=== PATIENT | female | born 1985 | race American Indian/Alaskan Native ===

== ENCOUNTER 2022-04-17 17:41 | Inpatient (IN) | payer MEDICAID, SELFPAY ==
[2022-04-17] VITALS (24 sets, daily range): BP systolic 105–123; BP diastolic 53–75; PULSE 75–105; RESP 20–24; TEMP 36.1–37.5; O2SAT 86–96; BMI 36.1
--- NOTE | 2022-04-17 17:54 | DI.RAD.S_ITS ---
PROCEDURE: XR CHEST 1V INDICATIONS: cough TECHNIQUE: One view of the chest was acquired. COMPARISON: None. FINDINGS: Surgical changes and devices: None. Lungs and pleura: Bilateral, but left greater than right perihilar alveolar opacity and interstitial prominence. There are no dense consolidations, effusions, or pneumothorax. Mediastinum: Left hilar structures are prominent, potentially adenopathy. The mediastinal contour and heart size are otherwise normal. Bones and chest wall: No suspicious bony lesions. Overlying soft tissues appear unremarkable. IMPRESSION: 1. Mainly left-sided mixed interstitial and alveolar opacity and probably reactive adenopathy. Dictated by: Nancy Kumar M.D. on 04/17/2022 at 20:41 Approved by: Nancy Kumar M.D. on 04/17/2022 at 20:42
--- NOTE | 2022-04-17 18:08 | ED_ITS ---
HPI - SOB/Dyspnea General Chief Complaint: Shortness of Breath/Dyspnea Stated Complaint: SOB Time Seen by Provider: 04/17/22 18:03 Source: patient and EMS Mode of arrival: EMS Limitations: no limitations History of Present Illness HPI Narrative: 36F smoker with history of asthma presents by EMS for evaluation of various symptoms including fever, body aches, chills and shortness of breath evolving over the past few days. She states that she has multiple family members in the home with influenza a. She ran out of her inhaler and has become increasingly short of breath. She presented to clinic initially was found to have oxygen in the upper 80s, EMS was activated and transported here with IV in place. She has a mild headache and mild sore throat but complains of fever, chills and body aches. She is nauseated but has had no vomiting and denies abdominal pain. She denies chest pain but has been short of breath and increasingly wheezy. She states taking a deep breath makes her more likely to cough. She denies the production of any sputum. She denies any diarrhea or urinary complaints such as dysuria, frequency or urgency Related Data Home Medications Medication Instructions Recorded Confirmed acetaminophen 650 mg tablet 650 mg PO Q4H PRN Mild Pain (Scale 04/17/22 04/17/22 Score 1-4) methadone 5 mg tablet 148 mg PO DAILY 04/17/22 04/17/22 Allergies Allergy/AdvReac Type Severity Reaction Status Date / Time No Known Drug Allergies Allergy Verified 04/17/22 17:42 Review of Systems Review of Systems Narrative: GENERAL: See HPI HEENT: See HPI RESPIRATORY: See HPI CARDIOVASCULAR: Denies chest pain, palpitations, orthopnea, edema, GASTROINTESTINAL: See HPI : Denies dysuria, frequency, incontinence, hematuria, urinary retention. MUSCULOSKELETAL: denies weakness, joint pain, or bony pain SKIN: Denies rash, skin lesions, or other NEUROLOGIC: Denies weakness, headache, numbness, change in speech, confusion, seizures, incoordination. PSYCHIATRIC: No concerning psychosocial issues. 12 point review of systems is negative except for those stated above Patient History Medical History (Updated 04/17/22 @ 21:41 by Luca Elliott MD) Asthma Social History household members: spouse, family and children Smoking Status: Current every day smoker alcohol intake: never Smoking Status: Current every day smoker Substance Use Type: does not use Exam Narrative Exam Narrative: GENERAL: [36] year old patient appears stated age. Well-developed patient, in mild distress. Clearly feeling unwell but in no significant distress HEAD: Atraumatic. Normocephalic. EYES: Pupils equal round and reactive. Extraocular motions intact. No scleral icterus. No injection or drainage. ENT: Nose without bleeding, purulent drainage. Throat without erythema, tonsillar hypertrophy or exudate. Airway patent. NECK: Trachea midline. Non tender CARDIOVASCULAR: Regular rate and rhythm without murmurs, gallops, or rubs. RESPIRATORY: Clear to auscultation. Breath sounds equal bilaterally. No wheezes, rales, or rhonchi. No signs of increased work of breathing such as tachypnea, use of accessory muscles. She is hypoxemic and currently requiring 3 L by nasal cannula GASTROINTESTINAL: Abdomen soft, non-tender, nondistended. EXTREMITIES: No edema or joint tenderness. BACK: Nontender without deformity or crepitance. No flank tenderness. NEURO: AOx3. SKIN: No rash or erythema of visible areas Initial Vital Signs Initial Vital Signs: Vital Signs Pulse Rate 104 H 04/17/22 17:46 Pulse Oximetry 95 04/17/22 17:46 Course Orders Ordered: ED Orders 04/17/22 17:44 Complete Blood Count AUTO DIFF Stat Comprehensive Metabolic Panel Stat D Dimer Stat Lactate (Lactic Acid) Stat Procalcitonin Stat 04/17/22 17:45 Covid-19 + FLU A/B + RSV - PCR Stat 04/17/22 17:54 XR chest 1V Stat 04/17/22 18:35 Blood Culture Stat 04/17/22 19:07 ABG [Arterial Blood Gas] Stat Acetaminophen (Acetaminophen 325 Mg Tablet) 650 mg PO Q6H PRN PRN Reason: Fever/Mild Pain (1-3) Albuterol (Albuterol 2.5 Mg/3 Ml Neb (Adult)) 2.5 mg INH [id number] [facility] Docusate Sodium (Docusate 100 Mg Capsule) 100 mg PO BID DOMINIQUE Methadone HCl (Methadone 5 Mg Tablet) 148 mg PO DAILY [facility] Methylprednisolone (Methylprednisolone 125 Mg/2 Ml Vial) 60 mg IV Q8H DOMINIQUE Naloxone HCl (Naloxone 0.4 Mg/Ml Vial) 0.2 mg IV Q2MIN PRN PRN Reason: Opiate Reversal Ondansetron HCl (Ondansetron 4 Mg/2 Ml Inj) 4 mg IV Q8HR PRN PRN Reason: Nausea And Vomiting Oseltamivir Phosphate (Oseltamivir 75 Mg Capsule) 75 mg PO BID DOMINIQUE Discontinued Medications Albuterol/Ipratropium (Albuterol/Ipratropium 3 Ml Ampul) 3 ml INH NOW ONE Stop: 04/17/22 18:18 Last Admin: 04/17/22 19:04 Dose: 3 ml Documented By: FRANCK Lactated Ringer's (Lactated Ringers) 1,000 mls @ 1,000 mls/hr IV BOLUS ONE Stop: 04/17/22 19:15 Last Infusion: 04/17/22 20:18 Dose: 0 mls/hr Documented By: Admin: 04/17/22 18:52 Dose: 1,000 mls/hr Documented By: RB Ceftriaxone Sodium 1,000 mg/ (Sodium Chloride) 100 mls @ 200 mls/hr IV NOW ONE Stop: 04/17/22 20:13 Last Infusion: 04/17/22 21:07 Dose: 0 mls/hr Documented By: Admin: 04/17/22 20:19 Dose: 200 mls/hr Documented By: MARLEEN Azithromycin 500 mg/ Dextrose 250 mls @ 250 mls/hr IV NOW ONE Stop: 04/17/22 20:13 Last Infusion: 04/17/22 22:23 Dose: 0 mls/hr Documented By: Admin: 04/17/22 21:08 Dose: 250 mls/hr Documented By: MARLEEN Ketorolac Tromethamine (Ketorolac 30 Mg/Ml Vial) 15 mg IV NOW ONE Stop: 04/17/22 18:17 Last Admin: 04/17/22 18:51 Dose: 15 mg Documented By: RB Methylprednisolone (Methylprednisolone 125 Mg/2 Ml Vial) 125 mg IV NOW ONE Stop: 04/17/22 18:17 Last Admin: 04/17/22 18:52 Dose: 125 mg Documented By: RB Ondansetron HCl (Ondansetron 4 Mg/2 Ml Inj) 4 mg IV NOW ONE Stop: 04/17/22 18:17 Last Admin: 04/17/22 18:51 Dose: 4 mg Documented By: RB Oseltamivir Phosphate (Oseltamivir 75 Mg Capsule) 75 mg PO NOW ONE Stop: 04/17/22 21:30 Last Admin: 04/17/22 21:44 Dose: Not Given Documented By: RB Oxycodone HCl (Oxycodone Ir 5 Mg Tablet) 5 mg PO Q3H PRN PRN Reason: Pain, Moderate (4-6) Pantoprazole Sodium (Pantoprazole 40 Mg Vial) 40 mg IV NOW ONE Stop: 04/17/22 18:17 Last Admin: 04/17/22 18:52 Dose: 40 mg Documented By: RB Vital Signs Vital signs: Vital Signs - 8 hr 04/17/22 17:50 04/17/22 17:46 04/17/22 17:47 Temperature 99.5 F Pulse Rate 95 H 104 H Respiratory Rate 20 Blood Pressure 120/60 118/75 Pulse Oximetry 95 95 Oxygen Delivery Method Room Air Oxygen Flow Rate 04/17/22 17:47 04/17/22 18:17 04/17/22 18:19 Temperature Pulse Rate 95 H Respiratory Rate Blood Pressure Pulse Oximetry 96 86 L 92 Oxygen Delivery Method Room Air Nasal Cannula Oxygen Flow Rate 3 04/17/22 19:05 04/17/22 18:00 04/17/22 18:01 Temperature Pulse Rate 101 H Respiratory Rate Blood Pressure 117/60 Pulse Oximetry 93 Oxygen Delivery Method Nasal Cannula Nasal Cannula Oxygen Flow Rate 4 3 04/17/22 18:01 04/17/22 18:30 04/17/22 19:00 Temperature Pulse Rate 102 H 94 H 96 H Respiratory Rate Blood Pressure Pulse Oximetry 92 92 Oxygen Delivery Method Nasal Cannula Nasal Cannula Oxygen Flow Rate 3 3 04/17/22 19:15 04/17/22 19:15 04/17/22 19:30 Temperature Pulse Rate 105 H Respiratory Rate Blood Pressure 120/60 120/59 L Pulse Oximetry 91 Oxygen Delivery Method Nasal Cannula Oxygen Flow Rate 3 04/17/22 19:30 04/17/22 19:53 04/17/22 20:00 Temperature Pulse Rate 99 H 93 H 97 H Respiratory Rate Blood Pressure 119/56 L 108/53 L Pulse Oximetry 92 91 93 Oxygen Delivery Method Nasal Cannula Nasal Cannula Nasal Cannula Oxygen Flow Rate 3 3 3 04/17/22 20:15 04/17/22 20:30 04/17/22 20:30 Temperature Pulse Rate 87 81 Respiratory Rate Blood Pressure 116/55 L 123/58 L Pulse Oximetry 91 92 Oxygen Delivery Method Nasal Cannula Oxygen Flow Rate 3 04/17/22 20:45 04/17/22 20:45 04/17/22 21:00 Temperature Pulse Rate 84 Respiratory Rate Blood Pressure 118/58 L 115/58 L Pulse Oximetry 91 Oxygen Delivery Method Oxygen Flow Rate 04/17/22 21:00 04/17/22 21:15 04/17/22 21:15 Temperature Pulse Rate 81 75 Respiratory Rate Blood Pressure 120/59 L Pulse Oximetry 91 93 Oxygen Delivery Method Oxygen Flow Rate MDM - SOB/Dyspnea Lab Data Result diagrams: 04/17/22 17:44 04/17/22 17:44 Labs: Lab Results 04/17/22 04/17/22 04/17/22 Range/Units 17:44 17:44 17:44 WBC 11.0 (4.5-11.0) X10^3/uL RBC 4.34 (4.0-5.2) X10^6/uL Hgb 11.0 L (12.0-16.0) g/dL Hct 33.3 L (36-46) % MCV 76.6 L (80-100) fL MCH 25.2 L (26-34) PG MCHC 33.0 (30-36) % RDW 16.9 H (11.6-14.8) % Plt Count 281 (150-400) X10^3/uL Neut % (Auto) 88.0 H (50-75) % Lymph % (Auto) 5.2 L (25-40) % [place] % (Auto) 6.2 (3-14) % Eos % (Auto) 0.0 L (2-4) % Baso % (Auto) 0.6 (0-2) % Neut # (Auto) 9700 H (6496-4787) /uL Lymph # (Auto) 600 L (0228-0445) /uL [place] # (Auto) 700 (0-900) /uL Eos # (Auto) 0 (0-450) /uL Baso # (Auto) 100 (0-100) /uL D-Dimer (<500) ng/ml Sodium 137 (137-145) mmol/L Potassium 3.6 (3.4-5.1) mmol/L Chloride 102 (98-107) mmol/L Carbon Dioxide 27 (22-32) mmol/L BUN 9 (7-17) mg/dL Creatinine 0.60 (0.52-1.04) mg/dL Estimated GFR > 60 (>60) mL/min BUN/Creatinine Ratio 15.0 (6-22) Glucose 106 H (70-100) mg/dL Lactate 1.1 (0.7-2.1) mmol/L Calcium 8.8 (8.4-10.2) mg/dL Total Bilirubin 0.3 (0.2-1.3) mg/dL AST 26 (14-36) IU/L ALT 23 (<35) IU/L Alkaline Phosphatase 81 (38-126) U/L Total Protein 8.0 (6.3-8.2) g/dL Albumin 4.1 (3.5-5.0) g/dL Globulin 3.9 (1.7-4.1) g/dL Albumin/Globulin Ratio 1.1 (1.0-2.8) Procalcitonin 0.08 (<0.5) ng/mL SARS-CoV-2 (PCR) (Negative) Influenza A (RT-PCR) (NEGATIVE) Influenza B (RT-PCR) (NEGATIVE) RSV (PCR) (Negative) 04/17/22 04/17/22 Range/Units 17:44 17:45 WBC (4.5-11.0) X10^3/uL RBC (4.0-5.2) X10^6/uL Hgb (12.0-16.0) g/dL Hct (36-46) % MCV (80-100) fL MCH (26-34) PG MCHC (30-36) % RDW (11.6-14.8) % Plt Count (150-400) X10^3/uL Neut % (Auto) (50-75) % Lymph % (Auto) (25-40) % [place] % (Auto) (3-14) % Eos % (Auto) (2-4) % Baso % (Auto) (0-2) % Neut # (Auto) (2517-9732) /uL Lymph # (Auto) (3052-8086) /uL [place] # (Auto) (0-900) /uL Eos # (Auto) (0-450) /uL Baso # (Auto) (0-100) /uL D-Dimer 441 (<500) ng/ml Sodium (137-145) mmol/L Potassium (3.4-5.1) mmol/L Chloride (98-107) mmol/L Carbon Dioxide (22-32) mmol/L BUN (7-17) mg/dL Creatinine (0.52-1.04) mg/dL Estimated GFR (>60) mL/min BUN/Creatinine Ratio (6-22) Glucose (70-100) mg/dL Lactate (0.7-2.1) mmol/L Calcium (8.4-10.2) mg/dL Total Bilirubin (0.2-1.3) mg/dL AST (14-36) IU/L ALT (<35) IU/L Alkaline Phosphatase (38-126) U/L Total Protein (6.3-8.2) g/dL Albumin (3.5-5.0) g/dL Globulin (1.7-4.1) g/dL Albumin/Globulin Ratio (1.0-2.8) Procalcitonin (<0.5) ng/mL SARS-CoV-2 (PCR) Negative (Negative) Influenza A (RT-PCR) Flu a positive H (NEGATIVE) Influenza B (RT-PCR) Flu b negative (NEGATIVE) RSV (PCR) Negative (Negative) Imaging Data Chest x-ray: Radiologist's Impression: [address] [id number] ReportSigned Patient: Adbi Negron [facility]#: [id number]: 01/24/1987Acct:[id number]/Sex: 35 / MDate of Service: 04/17/22Loc: EDAccession Number: [id number] Procedure: XR foot LT min 3V Ordering Provider: Oliver Nina D.O. PROCEDURE: XR FOOT LT MIN 3V INDICATIONS: foot injury/pain TECHNIQUE: Three views of the foot were acquired. COMPARISON: None. FINDINGS: Bones: No fractures or dislocations. No suspicious bony lesions. Soft tissues: No tibiotalar joint effusion. Achilles tendon appears normal. IMPRESSION: Intact left foot. Dictated by: Nancy Kumar M.D. on 04/17/2022 at 19:17 Approved by: Nancy Kumar M.D. on 04/17/2022 at 19:17 [facility] Narrative Medical decision making narrative: 36-year-old female with history of asthma and exposure to flu a presents with increasing work of breathing fever and body aches. Over the course of the visit she is had increased oxygen demands and now is requiring 4 L by nasal cannula and while on 4 L had an ABG noting a PO2 of 60. Labs are largely very reassuring, pulmonary embolism considered in the differential but considered less likely as D-dimer is below cutoff to pursue pulmonary embolism. Patient requiring supplemental oxygen, has been given fluids, breathing treatments with minimal improvement, she will require hospitalization for ongoing evaluation and stabilization of her condition. Discharge Plan Departure Patient Disposition: Admitted As Inpatient Clinical Impression: Acute hypoxemic respiratory failure, Influenza A Admit Date/Time: 04/17/22 21:24 Admit Provider: Luca Elliott
--- NOTE | 2022-04-17 18:17 | PC.NURSE ---
pt breathing tx finished, pt removed mask. on ra sats dropped to 86%. placed on 3l O2, sats now 92%
[2022-04-17 18:29] LABS: Add Manual Diff / Slide Review NO; Basophils Absolute Auto 100 /uL (0-100); Basophils Percent Auto 0.6 % (0-2); Eosinophils Absolute Auto 0 /uL (0-450); Hematocrit 33.3 % (36-46); Lymphocytes Absolute Auto 600 /uL (1100-4500); Lymphocytes Percent Auto 5.2 % (25-40); Mean Corpuscular Hemoglobin 25.2 PG (26-34); Mean Corpuscular Volume 76.6 fL (80-100); Monocytes Absolute Auto 700 /uL (0-900); Monocytes Percent Auto 6.2 % (3-14); Neutrophils Absolute Auto 9700 /uL (1500-7000); Platelet Count 281 X10^3/uL (150-400); Red Blood Cell Count 4.34 X10^6/uL (4.0-5.2); Red Cell Distribution Width 16.9 % (11.6-14.8)
[2022-04-17 18:33] LABS: Lactate (Lactic Acid) 1.1 mmol/L (0.7-2.1)
[2022-04-17 18:34] LABS: Alanine Aminotransferase 23 IU/L (<35); Albumin 4.1 g/dL (3.5-5.0); Albumin Globulin Ratio 1.1 (1.0-2.8); Alkaline Phosphatase 81 U/L (38-126); Aspartate Aminotransferase 26 IU/L (14-36); Bilirubin Total 0.3 mg/dL (0.2-1.3); Blood Urea Nitrogen 9 mg/dL (7-17); Calcium 8.8 mg/dL (8.4-10.2); Carbon Dioxide 27 mmol/L (22-32); Chloride 102 mmol/L (98-107); Estimated Glomerular Filt Rate > 60 mL/min (>60); Globulin 3.9 g/dL (1.7-4.1); Glucose 106 mg/dL (70-100); HEMOLYSIS < 15 (0-50); Potassium 3.6 mmol/L (3.4-5.1); Sodium 137 mmol/L (137-145)
[2022-04-17 18:51] LABS: Influenza A - CEPHEID Flu A POSITIVE (NEGATIVE); Influenza B - CEPHEID Flu B NEGATIVE (NEGATIVE); Respiratory Syncytial Virus Negative (Negative)
[2022-04-17 18:51] LABS: Procalcitonin 0.08 ng/mL (<0.5)
[2022-04-17] MEDS: ONDANSETRON 4 MG/2 ML INJ IV (18:51)
[2022-04-17] MEDS: KETOROLAC 30 MG/ML VIAL 15 MG IV (18:51)
[2022-04-17 18:52] LABS: COVID-19 CEPHEID 4-PLEX PCR Negative (Negative)
[2022-04-17] MEDS: PANTOPRAZOLE 40 MG VIAL IV (18:52)
[2022-04-17] MEDS: methylPREDNISolone 125 MG/2 ML VIAL IV (18:52)
[2022-04-17] MEDS: LACTATED RINGERS 1,000 ML 1000 ML IV (18:52)
[2022-04-17] MEDS: ALBUTEROL/IPRATROPIUM 3 ML AMPUL INH (19:04)
[2022-04-17 19:25] LABS: D Dimer 441 ng/ml (<500)
[2022-04-17] MEDS: cefTRIAXone 1,000 MG in SODIUM CHLORIDE 0.9% 100 ML 200 MG IV (20:19)
[2022-04-17] MEDS: AZITHROMYCIN 500 MG in DEXTROSE 5% IN WATER 250 ML 250 MG IV (21:08)
--- NOTE | 2022-04-17 21:38 | P.HP_ITS ---
History of Present Illness History of Present Illness Date Patient Seen: 04/17/22 Chief complaint: SOB Narrative: 36F smoker with history of asthma presents by EMS for evaluation of various symptoms including fever, body aches, chills and shortness of breath evolving over the past few days.? She states that she has multiple family members in the home with influenza a.? She ran out of her inhaler and has become increasingly short of breath.? She presented to clinic initially was found to have oxygen in the upper 80s, EMS was activated and transported here with IV in place.? She has a mild headache and mild sore throat but complains of fever, chills and body aches.? She is nauseated but has had no vomiting and denies abdominal pain.? She denies chest pain but has been short of breath and increasingly wheezy.? She states taking a deep breath makes her more likely to cough.? She denies the production of any sputum.? She denies any diarrhea or urinary complaints such as dysuria, frequency or urgency. In the ER patient found to be significantly hypoxic dropping to 80s low 80s of the oxygen required 4 L to keep above 90%. She received IV steroids and nebulizer therapy before I saw her, still seems to be sleepy and using accessory muscles, looks very tired. Patient has inte rmittent episodes cough and yellowish sputum. She already received IV antibiotics in the ER. Requested respiratory therapy to put her on high-flow nasal cannula to help with the breathing and oxygenation given significant hypoxia on ABG. Patient able to confirm most of the details by herself and present at bedside. Patient History Medical History (Updated 04/17/22 @ 21:41 by Luca Elliott MD) Asthma Comment: She had a head trauma when she was a kid, heart surgery, does not remember the details. Family & Social History Family history unavailable: No (No significant history of asthma or cardiac disease, noncontributory) Social History: Lives with her . Supportive family. She works in a assisted living facility. Safety & Behavioral: Feels Safe in Current Yes Environment Been Physically Hurt or No Threatened By a Person Tobacco & Substance use: Smoking Status Current every day smoker Substance Use Type does not use Meds Home Medications and Allergies Allergies Allergy/AdvReac Type Severity Reaction Status Date / Time No Known Drug Allergies Allergy Verified 04/17/22 17:42 Review of Systems Review of Systems Narrative: All other systems reviewed, negative. Other than as mentioned above in HPI. Exam Vital Signs (past 8 hours): - 04/17/22 17:50 04/17/22 17:46 04/17/22 17:47 Temperature 99.5 F Pulse Rate 95 H 104 H Respiratory Rate 20 Blood Pressure 120/60 118/75 Pulse Oximetry 95 95 Oxygen Delivery Method Room Air Oxygen Flow Rate 04/17/22 17:47 04/17/22 18:17 04/17/22 18:19 Temperature Pulse Rate 95 H Respiratory Rate Blood Pressure Pulse Oximetry 96 86 L 92 Oxygen Delivery Method Room Air Nasal Cannula Oxygen Flow Rate 3 04/17/22 19:05 04/17/22 18:00 04/17/22 18:01 Temperature Pulse Rate 101 H Respiratory Rate Blood Pressure 117/60 Pulse Oximetry 93 Oxygen Delivery Method Nasal Cannula Nasal Cannula Oxygen Flow Rate 4 3 04/17/22 18:01 04/17/22 18:30 04/17/22 19:00 Temperature Pulse Rate 102 H 94 H 96 H Respiratory Rate Blood Pressure Pulse Oximetry 92 92 Oxygen Delivery Method Nasal Cannula Nasal Cannula Oxygen Flow Rate 3 3 04/17/22 19:15 04/17/22 19:15 04/17/22 19:30 Temperature Pulse Rate 105 H Respiratory Rate Blood Pressure 120/60 120/59 L Pulse Oximetry 91 Oxygen Delivery Method Nasal Cannula Oxygen Flow Rate 3 04/17/22 19:30 04/17/22 19:53 04/17/22 20:00 Temperature Pulse Rate 99 H 93 H 97 H Respiratory Rate Blood Pressure 119/56 L 108/53 L Pulse Oximetry 92 91 93 Oxygen Delivery Method Nasal Cannula Nasal Cannula Nasal Cannula Oxygen Flow Rate 3 3 3 04/17/22 20:15 Temperature Pulse Rate 87 Respiratory Rate Blood Pressure 116/55 L Pulse Oximetry 91 Oxygen Delivery Method Nasal Cannula Oxygen Flow Rate 3 Oxygen Delivery Method Nasal Cannula Oxygen Flow Rate 3 Narrative Exam Narrative: Seems to be in distress, using accessory muscles when making conversation, significant wheezes bilateral left greater than right and also crackles on the left upper lung. Obese. Nonpitting pedal edema of extremities. Constitutional, HEENT, eyes, neck, chest, respiratory, cardiovascular, GI, skin, neuro, extremity, psych exam done, within normal limits except as mentioned above. Objective Labs Result Diagrams: 04/17/22 17:44 04/17/22 17:44 Labs: Laboratory Results - last 24 hr 04/17/22 04/17/22 04/17/22 17:44 17:44 17:44 WBC 11.0 RBC 4.34 Hgb 11.0 L Hct 33.3 L MCV 76.6 L MCH 25.2 L MCHC 33.0 RDW 16.9 H Plt Count 281 Neut % (Auto) 88.0 H Lymph % (Auto) 5.2 L [place] % (Auto) 6.2 Eos % (Auto) 0.0 L Baso % (Auto) 0.6 Neut # (Auto) 9700 H Lymph # (Auto) 600 L [place] # (Auto) 700 Eos # (Auto) 0 Baso # (Auto) 100 D-Dimer Sodium 137 Potassium 3.6 Chloride 102 Carbon Dioxide 27 BUN 9 Creatinine 0.60 Estimated GFR > 60 BUN/Creatinine Ratio 15.0 Glucose 106 H Lactate 1.1 Calcium 8.8 Total Bilirubin 0.3 AST 26 ALT 23 Alkaline Phosphatase 81 Total Protein 8.0 Albumin 4.1 Globulin 3.9 Albumin/Globulin Ratio 1.1 Procalcitonin 0.08 SARS-CoV-2 (PCR) Influenza A (RT-PCR) Influenza B (RT-PCR) RSV (PCR) 04/17/22 04/17/22 17:44 17:45 WBC RBC Hgb Hct MCV MCH MCHC RDW Plt Count Neut % (Auto) Lymph % (Auto) [place] % (Auto) Eos % (Auto) Baso % (Auto) Neut # (Auto) Lymph # (Auto) [place] # (Auto) Eos # (Auto) Baso # (Auto) D-Dimer 441 Sodium Potassium Chloride Carbon Dioxide BUN Creatinine Estimated GFR BUN/Creatinine Ratio Glucose Lactate Calcium Total Bilirubin AST ALT Alkaline Phosphatase Total Protein Albumin Globulin Albumin/Globulin Ratio Procalcitonin SARS-CoV-2 (PCR) Negative Influenza A (RT-PCR) Flu a positive H Influenza B (RT-PCR) Flu b negative RSV (PCR) Negative Assessment & Plan Assessment & Plan narrative: Acute hypoxic respiratory failure secondary to severe asthma exacerbation secondary to influenza a infection -chest x-ray negative for consolidation, pneumonia at this time, could be viral bronchitis. Tamiflu, IV steroids, continuous nebulizer therapy, high-flow nasal cannula, close monitoring Obesity -secondary to excess calories -outpatient follow-up DVT and GI prophylaxis reviewed. Patient is full code Care plan extensively discussed with the patient and also at bedside, answered all questions. Expected length of stay 2 days, given significant respiratory distress. Reassess in the morning for discharge planning. Time Spent With Patient Critical Care time: I spent a total of [] minutes of critical care time on this patient's care today; this time is exclusive of procedural time.
[2022-04-18] VITALS (13 sets, daily range): BP systolic 113–126; BP diastolic 59–68; PULSE 62–98; RESP 16–18; TEMP 35.8–36.4; O2SAT 89–96
[2022-04-18] MEDS: ONDANSETRON 4 MG/2 ML INJ IV ×3 (01:18→18:41)
[2022-04-18] MEDS: ACETAMINOPHEN 325 MG TABLET 650 MG PO ×3 (01:18→18:40)
--- NOTE | 2022-04-18 02:29 | PC.ADMIT ---
[id number] [facility] lashawn ln Admission Note: The patient,Donnie Ojeda,36 y/o, was given written information regarding hospital policies, unit procedures and contact persons. Patient's smoking status: Current every day smoker. Vital Signs - 8 hr 04/17/22 19:05 04/17/22 18:30 04/17/22 19:00 Temperature Pulse Rate 94 H 96 H Respiratory Rate Blood Pressure Pulse Oximetry 92 Oxygen Delivery Method Nasal Cannula Nasal Cannula Oxygen Flow Rate 4 3 Fraction of Inspired Oxygen 04/17/22 19:15 04/17/22 19:15 04/17/22 19:30 Temperature Pulse Rate 105 H Respiratory Rate Blood Pressure 120/60 120/59 L Pulse Oximetry 91 Oxygen Delivery Method Nasal Cannula Oxygen Flow Rate 3 Fraction of Inspired Oxygen 04/17/22 19:30 04/17/22 19:53 04/17/22 20:00 Temperature Pulse Rate 99 H 93 H 97 H Respiratory Rate Blood Pressure 119/56 L 108/53 L Pulse Oximetry 92 91 93 Oxygen Delivery Method Nasal Cannula Nasal Cannula Nasal Cannula Oxygen Flow Rate 3 3 3 Fraction of Inspired Oxygen 04/17/22 20:15 04/17/22 20:30 04/17/22 20:30 Temperature Pulse Rate 87 81 Respiratory Rate Blood Pressure 116/55 L 123/58 L Pulse Oximetry 91 92 Oxygen Delivery Method Nasal Cannula Oxygen Flow Rate 3 Fraction of Inspired Oxygen 04/17/22 20:45 04/17/22 20:45 04/17/22 21:00 Temperature Pulse Rate 84 Respiratory Rate Blood Pressure 118/58 L 115/58 L Pulse Oximetry 91 Oxygen Delivery Method Oxygen Flow Rate Fraction of Inspired Oxygen 04/17/22 21:00 04/17/22 21:15 04/17/22 21:15 Temperature Pulse Rate 81 75 Respiratory Rate Blood Pressure 120/59 L Pulse Oximetry 91 93 Oxygen Delivery Method Oxygen Flow Rate Fraction of Inspired Oxygen 04/17/22 21:30 04/17/22 21:30 04/17/22 21:45 Temperature Pulse Rate 80 Respiratory Rate Blood Pressure 119/56 L 108/56 L Pulse Oximetry 94 Oxygen Delivery Method Oxygen Flow Rate Fraction of Inspired Oxygen 04/17/22 21:45 04/17/22 22:00 04/17/22 22:00 Temperature Pulse Rate 78 78 Respiratory Rate Blood Pressure 113/58 L Pulse Oximetry 95 95 Oxygen Delivery Method Oxygen Flow Rate Fraction of Inspired Oxygen 04/17/22 22:15 04/17/22 22:15 04/17/22 22:30 Temperature Pulse Rate 81 75 Respiratory Rate Blood Pressure 113/64 Pulse Oximetry 96 95 Oxygen Delivery Method Oxygen Flow Rate Fraction of Inspired Oxygen 04/17/22 23:10 04/18/22 01:00 Temperature 97.0 F L Pulse Rate 79 Respiratory Rate 24 Blood Pressure 105/61 Pulse Oximetry 95 Oxygen Delivery Method High Flow Nasal Cannula Oxygen Flow Rate 40 Fraction of Inspired Oxygen 0.38 Patient admitted to room 216 from ER at 2245. Patient is alert and oriented but appears fatigued and weak. Breath sounds with crackles in [place] and bilateral wheezes. Intermittent cough productive of yellow sputum. On oxygen per HFNC at 40/38 % Fi02 with sat of 95%; on continuous oximetry. HRR and telemetry reading was SR. At time of assessment complained of some nausea without emesis so medicated with Zofran. Also complained of headache so medicated with Tylenol. BT present but hypoactive. Denies dysuria, frequency or urgency with voiding. Able to move herself in bed. Up to BSC with SBA. Bilateral calf SCD's applied. Fall risk score is moderate but patient calls for assistance appropriately so alarm is not activated. On droplet precautions as is positive for influenza A. Oriented to call light and bed controls.
[2022-04-18 03:26] LABS: HCO3 ABG 25 mmol/L (22-26); Oxygen Saturation ABG 91 % (95-100); PO2 ABG 60 mmHg (80-100); TCO2 ABG 26 mmol/L (21-31); pH ABG 7.42 (7.35-7.45)
[2022-04-18 03:27] LABS: Fractionated Inspired Oxygen 37
[2022-04-18] MEDS: methylPREDNISolone 125 MG/2 ML VIAL 60 MG IV ×3 (05:45→21:55)
[2022-04-18] MEDS: SODIUM CHLORIDE 0.9% FLUSH 10 ML IV ×6 (05:46→21:54)
[2022-04-18] MEDS: METHADONE 10 MG TABLET 145 MG PO (09:20)
[2022-04-18] MEDS: DOCUSATE 100 MG CAPSULE PO ×2 (09:20→21:54)
[2022-04-18] MEDS: OSELTAMIVIR 75 MG CAPSULE PO ×2 (10:24→21:54)
--- NOTE | 2022-04-18 11:04 | CM.DANOTE ---
DCP Assessment: Payor: Medicaid PCP: Unknown-[facility] Pt is a 36 y.o. who presented to the ER for chief complaint of SOB and fever. It was found that patient was positive for flu and is requiring 4L NC. Pt admitted for further evaluation and management of symptoms and diagnosis. DCP spoke briefly with pt as she was getting a breathing treatment. DCP introduced herself and role. Pt is independent at baseline and lives with her spouse and children on the [facility] in [facility]. Pt denies any resources at this time. Pt spouse to drive pt home upon discharge. P: Anticipate discharge home via spouse POV once medically stable. DCP to continue to follow. Rita Urrutia RN/SIDDHARTH Discharge Planning/Care Management CM Discharge Assessment Start: 04/18/22 10:23 Freq: Status: Active Protocol: Document 04/18/22 10:56 MARION (Rec: 04/18/22 10:57 MARION [id number]) Discharge Planning Assessment Assigned Screen Cutter And Trimmer Rita Urrutia RN/SIDDHARTH Advance Directives? No History Provided By Patient Prior Living Arrangements House Household Members spouse,family,children Discharge Plan Home Transportation Arrangement Spouse POV Referrals Initiated None needed Review Status In Process Please Provide Date Initial DC 04/18/22 Assessment Was Performed Next Review Type Continued Stay Review
[2022-04-18] MEDS: ALBUTEROL 2.5 MG/3 ML NEB (ADULT) INH ×3 (11:23→19:34)
--- NOTE | 2022-04-18 15:04 | P.PN_ITS ---
Subjective Subjective Date Patient Seen: 04/18/22 Interval history: Feels slightly improved today but remains weak, continues to have muscle aches. Exam Vital Signs (past 8 hours): - 04/18/22 08:00 04/18/22 11:42 04/18/22 11:44 Temperature 96.6 F L Pulse Rate 62 98 H 98 H Respiratory Rate 16 18 18 Blood Pressure 113/68 Pulse Oximetry 96 92 92 Oxygen Delivery Method Heated High Flow Oxygen Flow Rate 40 40 Fraction of Inspired Oxygen 35 04/18/22 12:00 Temperature 97.4 F L Pulse Rate 79 Respiratory Rate 17 Blood Pressure 126/68 Pulse Oximetry 91 Oxygen Delivery Method Oxygen Flow Rate 40 Fraction of Inspired Oxygen Fraction of Inspired Oxygen 35 SaO2/FiO2 Ratio 262 Oxygen Delivery Method Heated High Flow Oxygen Flow Rate 40 Narrative Exam Narrative: General:? Patient is well developed and well nourished, though acutely ill appearing and mildly lethargic. On high flow NC. HEENT:? Normocephalic, atraumatic, extraocular muscles intact, oral pharynx is clear and mucous membranes are moist. Neck: supple and symmetric, trachea is midline, no cervical adenopathy. Negative for JVD Chest:? Normal AP diameter and contour without kyphoscoliosis, no tachypnea, equal chest rise bilaterally. Lungs:? CTA b/l no wheezing rhonchi or rales. Cardio:?RRR no m/r/g. Abdomen: S NT ND. No CVA tenderness. Musculoskeletal:? Muscle strength and tone are equal within normal limits, no deformity. Extremities: No edema or joint effusions. No cyanosis or clubbing. Skin:? Pale,? Warm to touch,dry and intact without rashes, ulcerations or petechiae.? Neuro:? Alert and orientated x3,? sensation to touch intact in all extremities, no gross deficits noted of cranial nerves. Psych:? Patient has a well-kept appearance, appropriate affect, mental status attitude thought context and judgment are appropriate for age. Objective Labs Result Diagrams: 04/17/22 17:44 04/17/22 17:44 Labs: Laboratory Results - last 24 hr 04/17/22 04/17/22 04/17/22 17:44 17:44 17:44 WBC 11.0 RBC 4.34 Hgb 11.0 L Hct 33.3 L MCV 76.6 L MCH 25.2 L MCHC 33.0 RDW 16.9 H Plt Count 281 Neut % (Auto) 88.0 H Lymph % (Auto) 5.2 L Peach % (Auto) 6.2 Eos % (Auto) 0.0 L Baso % (Auto) 0.6 Neut # (Auto) 9700 H Lymph # (Auto) 600 L Peach # (Auto) 700 Eos # (Auto) 0 Baso # (Auto) 100 D-Dimer ABG pH ABG pCO2 ABG pO2 ABG HCO3 ABG Total CO2 ABG O2 Saturation ABG Base Excess FiO2 Sodium 137 Potassium 3.6 Chloride 102 Carbon Dioxide 27 BUN 9 Creatinine 0.60 Estimated GFR > 60 BUN/Creatinine Ratio 15.0 Glucose 106 H Lactate 1.1 Calcium 8.8 Total Bilirubin 0.3 AST 26 ALT 23 Alkaline Phosphatase 81 Total Protein 8.0 Albumin 4.1 Globulin 3.9 Albumin/Globulin Ratio 1.1 Procalcitonin 0.08 SARS-CoV-2 (PCR) Influenza A (RT-PCR) Influenza B (RT-PCR) RSV (PCR) 04/17/22 04/17/22 04/17/22 17:44 17:45 19:21 WBC RBC Hgb Hct MCV MCH MCHC RDW Plt Count Neut % (Auto) Lymph % (Auto) Peach % (Auto) Eos % (Auto) Baso % (Auto) Neut # (Auto) Lymph # (Auto) Peach # (Auto) Eos # (Auto) Baso # (Auto) D-Dimer 441 ABG pH 7.42 ABG pCO2 39.0 ABG pO2 60 L ABG HCO3 25 ABG Total CO2 26 ABG O2 Saturation 91 L ABG Base Excess 0.0 FiO2 37 Sodium Potassium Chloride Carbon Dioxide BUN Creatinine Estimated GFR BUN/Creatinine Ratio Glucose Lactate Calcium Total Bilirubin AST ALT Alkaline Phosphatase Total Protein Albumin Globulin Albumin/Globulin Ratio Procalcitonin SARS-CoV-2 (PCR) Negative Influenza A (RT-PCR) Flu a positive H Influenza B (RT-PCR) Flu b negative RSV (PCR) Negative [facility] Medical History (Updated 04/17/22 @ 21:41 by Luca Elliott MD) Asthma Social History household members: spouse, family and children Smoking Status: Current every day smoker alcohol intake: never Assessment & Plan Assessment & Plan narrative: Acute hypoxic respiratory failure secondary to severe asthma exacerbation secondary to influenza a infection -chest x-ray negative for consolidation, pneumonia at this time, could be viral bronchitis. Tamiflu, IV steroids, continuous nebulizer therapy, high-flow nasal cannula, close monitoring - wean from O2 as tolerated, goal O2 90-96% while on supplemental therapy. Obesity -secondary to excess calories -outpatient follow-up Opiate use - continue home methadone. DVT and GI prophylaxis reviewed. Patient is full code Care plan extensively discussed with the patient and also at bedside, answered all questions. Expected length of stay 2 days, given significant respiratory distress. Reassess in the morning for discharge planning. Time Spent With Patient Critical Care time: I spent a total of [] minutes of critical care time on this patient's care today; this time is exclusive of procedural time.
[2022-04-18] MEDS: IBUPROFEN 400 MG TABLET 800 MG PO (18:41)
[2022-04-19] VITALS (11 sets, daily range): BP systolic 103–120; BP diastolic 62–73; PULSE 60–78; RESP 16–24; TEMP 36.3–37; O2SAT 91–98
[2022-04-19] MEDS: ALBUTEROL 2.5 MG/3 ML NEB (ADULT) INH ×4 (03:29→19:43)
[2022-04-19] MEDS: methylPREDNISolone 125 MG/2 ML VIAL 60 MG IV ×2 (05:35→14:36)
[2022-04-19] MEDS: SODIUM CHLORIDE 0.9% FLUSH 10 ML IV ×3 (05:37→21:20)
[2022-04-19] MEDS: DOCUSATE 100 MG CAPSULE PO ×2 (09:32→21:19)
[2022-04-19] MEDS: METHADONE 10 MG TABLET 145 MG PO (09:32)
[2022-04-19] MEDS: OSELTAMIVIR 75 MG CAPSULE PO ×2 (09:32→21:26)
[2022-04-19] MEDS: ACETAMINOPHEN 325 MG TABLET 650 MG PO ×2 (09:52→21:19)
[2022-04-19] MEDS: ONDANSETRON 4 MG/2 ML INJ IV (09:52)
[2022-04-19] MEDS: IBUPROFEN 400 MG TABLET 800 MG PO (14:36)
--- NOTE | 2022-04-19 17:24 | P.PN_ITS ---
Subjective Subjective Date Patient Seen: 04/19/22 Interval history: Feels slightly improved today again remains weak, muscle aches have improved but still hurts to cough. Exam Vital Signs (past 8 hours): - 04/19/22 11:52 04/19/22 09:30 04/19/22 13:42 Temperature 97.3 F L Pulse Rate 65 60 Respiratory Rate 17 18 Blood Pressure 103/62 Pulse Oximetry 91 94 Oxygen Delivery Method Heated High Flow Heated High Flow Oxygen Flow Rate 35 04/19/22 13:45 Temperature Pulse Rate 64 Respiratory Rate 18 Blood Pressure Pulse Oximetry 95 Oxygen Delivery Method Oxygen Flow Rate Fraction of Inspired Oxygen 35 SaO2/FiO2 Ratio 265 Oxygen Delivery Method Heated High Flow Oxygen Flow Rate 35 Narrative Exam Narrative: General:? Patient is well developed and well nourished, though acutely ill appearing and mildly lethargic. On high flow NC. HEENT:? Normocephalic, atraumatic, extraocular muscles intact, oral pharynx is clear and mucous membranes are moist. Neck: supple and symmetric, trachea is midline, no cervical adenopathy. Negative for JVD Chest:? Normal AP diameter and contour without kyphoscoliosis, no tachypnea, equal chest rise bilaterally. Lungs:? CTA b/l no wheezing rhonchi or rales. Cardio:?RRR no m/r/g. Abdomen: S NT ND. No CVA tenderness. Musculoskeletal:? Muscle strength and tone are equal within normal limits, no deformity. Extremities: No edema or joint effusions. No cyanosis or clubbing. Skin:? Pale,? Warm to touch,dry and intact without rashes, ulcerations or petechiae.? Neuro:? Alert and orientated x3,? sensation to touch intact in all extremities, no gross deficits noted of cranial nerves. Psych:? Patient has a well-kept appearance, appropriate affect, mental status attitude thought context and judgment are appropriate for age. Objective Labs Result Diagrams: 04/17/22 17:44 04/17/22 17:44 [facility] Medical History (Updated 04/17/22 @ 21:41 by Luca Elliott MD) Asthma Social History household members: spouse, family and children Smoking Status: Current every day smoker alcohol intake: never Assessment & Plan Assessment & Plan narrative: Acute hypoxic respiratory failure secondary to severe asthma exacerbation secondary to influenza a infection -chest x-ray negative for consolidation, pneumonia at this time, could be viral bronchitis. 0 Tamiflu, IV steroids, continuous nebulizer therapy, high-flow nasal cannula, close monitoring - wean from O2 as tolerated, goal O2 90-96% while on supplemental therapy. - reduce steroids from TID to BID today. Once off of high flow start oral prednisone daily. Obesity -secondary to excess calories -outpatient follow-up Opiate use - continue home methadone. DVT and GI prophylaxis reviewed. Patient is full code Care plan extensively discussed with the patient and also at bedside, answered all questions. Dispo: plan for home, probably in 2-3 days depending on progress with hypoxia. Time Spent With Patient Critical Care time: I spent a total of [] minutes of critical care time on this patient's care today; this time is exclusive of procedural time.
[2022-04-20] VITALS (14 sets, daily range): BP systolic 113–128; BP diastolic 57–72; PULSE 52–77; RESP 14–20; TEMP 36.2–36.6; O2SAT 93–97
[2022-04-20] MEDS: TRAZODONE 50 MG TABLET PO (02:48)
--- NOTE | 2022-04-20 02:53 | PC.NURSE ---
Woke up to used the BSC, but having difficulty going back to sleep. Hospitalist notified & Dr. Tyson ordered 50 mg of Trazadone prn for insomnia. Medication administered, coughing & C/O dyspnea. RT notified & here to see patient, will cont. POC & monitor.
[2022-04-20] MEDS: SODIUM CHLORIDE 0.9% FLUSH 10 ML IV ×3 (05:45→20:44)
[2022-04-20] MEDS: ALBUTEROL 2.5 MG/3 ML NEB (ADULT) INH ×5 (08:33→23:10)
[2022-04-20] MEDS: METHADONE INTENSOL 10 MG/ML ORAL.CONC 148 MG PO (09:29)
[2022-04-20] MEDS: IBUPROFEN 400 MG TABLET 800 MG PO (09:29)
[2022-04-20] MEDS: DOCUSATE 100 MG CAPSULE PO ×2 (09:29→20:42)
[2022-04-20] MEDS: OSELTAMIVIR 75 MG CAPSULE PO ×2 (09:31→20:42)
--- NOTE | 2022-04-20 13:05 | P.PN_ITS ---
Subjective Subjective Date Patient Seen: 04/20/22 Interval history: Feels slightly improved today again remains weak, muscle aches have improved but still hurts to cough. Exam Vital Signs (past 8 hours): - 04/20/22 06:00 04/20/22 08:33 04/20/22 12:26 Temperature 97.2 F L Pulse Rate 52 L 52 L 63 Respiratory Rate 16 16 18 Blood Pressure 118/72 Pulse Oximetry 94 94 95 Oxygen Delivery Method Heated High Flow Heated High Flow Oxygen Flow Rate 40 40 Fraction of Inspired Oxygen 34 35 04/20/22 12:34 Temperature Pulse Rate 63 Respiratory Rate 18 Blood Pressure Pulse Oximetry 95 Oxygen Delivery Method Oxygen Flow Rate Fraction of Inspired Oxygen Fraction of Inspired Oxygen 35 SaO2/FiO2 Ratio 271 Oxygen Delivery Method Heated High Flow Oxygen Flow Rate 40 Narrative Exam Narrative: General:? Patient is well developed and well nourished, though acutely ill appearing and mildly lethargic. On high flow NC. HEENT:? Normocephalic, atraumatic, extraocular muscles intact, oral pharynx is clear and mucous membranes are moist. Neck: supple and symmetric, trachea is midline, no cervical adenopathy. Negative for JVD Chest:? Normal AP diameter and contour without kyphoscoliosis, no tachypnea, equal chest rise bilaterally. Lungs:? CTA b/l no wheezing rhonchi or rales. Cardio:?RRR no m/r/g. Abdomen: S NT ND. No CVA tenderness. Musculoskeletal:? Muscle strength and tone are equal within normal limits, no deformity. Extremities: No edema or joint effusions. No cyanosis or clubbing. Skin:? Pale,? Warm to touch,dry and intact without rashes, ulcerations or petechiae.? Neuro:? Alert and orientated x3,? sensation to touch intact in all extremities, no gross deficits noted of cranial nerves. Psych:? Patient has a well-kept appearance, appropriate affect, mental status attitude thought context and judgment are appropriate for age. Objective Labs Result Diagrams: 04/17/22 17:44 04/17/22 17:44 [facility] Medical History (Updated 04/17/22 @ 21:41 by Luca Elliott MD) Asthma Social History household members: spouse, family and children Smoking Status: Current every day smoker alcohol intake: never Assessment & Plan Assessment & Plan narrative: Acute hypoxic respiratory failure secondary to severe asthma exacerbation secondary to influenza a infection -chest x-ray negative for consolidation, pneumonia at this time, could be viral bronchitis. - Tamiflu, IV steroids, continuous nebulizer therapy, high-flow nasal cannula, close monitoring - wean from O2 as tolerated, goal O2 90-96% while on supplemental therapy. - continue to reduce steroids, change to 40 mg BID today. Once off of high flow start oral prednisone daily. Obesity -secondary to excess calories -outpatient follow-up Opiate use - continue home methadone. DVT and GI prophylaxis reviewed. Patient is full code Care plan extensively discussed with the patient and also at bedside, answered all questions. Dispo: plan for home, probably in 2-3 days depending on progress with hypoxia. Time Spent With Patient Critical Care time: I spent a total of [] minutes of critical care time on this patient's care today; this time is exclusive of procedural time.
[2022-04-20] MEDS: ACETAMINOPHEN 325 MG TABLET 650 MG PO (20:42)
[2022-04-21] VITALS (11 sets, daily range): BP systolic 110–125; BP diastolic 57–84; PULSE 53–78; RESP 14–20; TEMP 36.2–36.6; O2SAT 90–99
--- NOTE | 2022-04-21 09:37 | PM.PN.1 ---
Subjective Subjective Date Patient Seen: 04/21/22 Interval history: Patient feeling better today with improved breathing. Able to come off HFNC and currently on 2-3L NC. Would like to take a shower. Exam Vital Signs (past 8 hours): - 04/21/22 02:00 04/21/22 04:52 04/21/22 06:00 Temperature 97.9 F 97.1 F L Pulse Rate 65 57 L 69 Respiratory Rate 18 16 14 Blood Pressure 121/62 118/84 Pulse Oximetry 95 97 96 Oxygen Flow Rate 40 40 Fraction of Inspired Oxygen 35 35 04/21/22 09:33 Temperature 97.4 F L Pulse Rate 53 L Respiratory Rate 18 Blood Pressure 123/69 Pulse Oximetry 96 Oxygen Flow Rate 40 Fraction of Inspired Oxygen 34 Fraction of Inspired Oxygen 34 SaO2/FiO2 Ratio 323 Oxygen Delivery Method High Flow Nasal Cannula Oxygen Flow Rate 40 Narrative Exam Narrative: General:? Patient is well developed and well nourished, though acutely ill appearing and mildly lethargic. On NC. HEENT:? Normocephalic, atraumatic, extraocular muscles intact, oral pharynx is clear and mucous membranes are moist. Neck: supple and symmetric, trachea is midline, no cervical adenopathy. Negative for JVD Chest:? Normal AP diameter and contour without kyphoscoliosis, no tachypnea, equal chest rise bilaterally. Lungs:? CTA b/l no wheezing rhonchi or rales. Cardio:?RRR no m/r/g. Abdomen: S NT ND. No CVA tenderness. Musculoskeletal:? Muscle strength and tone are equal within normal limits, no deformity. Extremities: No edema or joint effusions. No cyanosis or clubbing. Skin:? Pale,? Warm to touch,dry and intact without rashes, ulcerations or petechiae.? Neuro:? Alert and orientated x3,? sensation to touch intact in all extremities, no gross deficits noted of cranial nerves. Psych:? Patient has a well-kept appearance, appropriate affect, mental status attitude thought context and judgment are appropriate for age. Objective Labs Result Diagrams: 04/17/22 17:44 04/17/22 17:44 [facility] Medical History (Updated 04/17/22 @ 21:41 by Luca Elliott MD) Asthma Social History household members: spouse, family and children Smoking Status: Current every day smoker alcohol intake: never Assessment & Plan Assessment & Plan narrative: Acute hypoxic respiratory failure secondary to severe asthma exacerbation secondary to influenza a infection -chest x-ray negative for consolidation, pneumonia at this time, could be viral bronchitis. -Tamiflu, IV steroids, continuous nebulizer therapy, close monitoring -wean from O2 as tolerated, goal O2 92-96% while on supplemental therapy. -continue to reduce steroids, change to prednisone 40mg po daily -now off HFNC and on 2-3L NC Obesity, secondary to excess calories -outpatient follow-up Opiate use -continue home methadone. DVT and GI prophylaxis reviewed. Patient is full code Care plan extensively discussed with the patient and also at bedside, answered all questions. Dispo: plan for home, probably in 2-3 days depending on progress with hypoxia. Time Spent With Patient Critical Care time: I spent a total of [] minutes of critical care time on this patient's care today; this time is exclusive of procedural time.
[2022-04-21] MEDS: OSELTAMIVIR 75 MG CAPSULE PO (10:18)
[2022-04-21] MEDS: DOCUSATE 100 MG CAPSULE PO ×2 (10:18→23:34)
[2022-04-21] MEDS: SODIUM CHLORIDE 0.9% FLUSH 10 ML IV ×2 (10:18→23:34)
[2022-04-21] MEDS: ONDANSETRON 4 MG/2 ML INJ IV (10:48)
[2022-04-21] MEDS: ALBUTEROL 2.5 MG/3 ML NEB (ADULT) INH ×3 (10:53→18:55)
[2022-04-21] MEDS: METHADONE INTENSOL 10 MG/ML ORAL.CONC 148 MG PO (11:25)
[2022-04-21] MEDS: OSELTAMIVIR 30 MG CAPSULE 60 MG PO (23:34)
[2022-04-22] VITALS (9 sets, daily range): BP systolic 105–123; BP diastolic 60–70; PULSE 66–88; RESP 14–18; TEMP 36–36.9; O2SAT 94–100
[2022-04-22] MEDS: ALBUTEROL 2.5 MG/3 ML NEB (ADULT) INH ×5 (08:49→22:28)
[2022-04-22] MEDS: predniSONE 20 MG TABLET 40 MG PO (10:12)
[2022-04-22] MEDS: DOCUSATE 100 MG CAPSULE PO ×2 (10:12→20:34)
[2022-04-22] MEDS: ONDANSETRON 4 MG/2 ML INJ IV (10:13)
[2022-04-22] MEDS: METHADONE INTENSOL 10 MG/ML ORAL.CONC 148 MG PO (10:14)
[2022-04-22] MEDS: SODIUM CHLORIDE 0.9% FLUSH 10 ML IV ×2 (10:14→20:34)
[2022-04-22] MEDS: OSELTAMIVIR 30 MG CAPSULE 60 MG PO (11:21)
--- NOTE | 2022-04-22 17:20 | P.PN_ITS ---
Subjective Subjective Date Patient Seen: 04/22/22 Interval history: Breathing improving and 90% on room air. On 1-2L with exertion. Patient ok with one more day then home. Exam Vital Signs (past 8 hours): - 04/22/22 12:27 04/22/22 13:40 04/22/22 15:26 Temperature 97.8 F Pulse Rate 86 80 66 Respiratory Rate 16 16 14 Blood Pressure 116/60 Pulse Oximetry 95 96 94 Oxygen Delivery Method Nasal Cannula Nasal Cannula Oxygen Flow Rate 1 1 Fraction of Inspired Oxygen 28 SaO2/FiO2 Ratio 339 Oxygen Delivery Method Nasal Cannula Oxygen Flow Rate 1 Narrative Exam Narrative: General:? Patient is well developed and well nourished HEENT:? Normocephalic, atraumatic, extraocular muscles intact, oral pharynx is clear and mucous membranes are moist. Neck: supple and symmetric, trachea is midline, no cervical adenopathy. Negative for JVD Chest:? Normal AP diameter and contour without kyphoscoliosis, no tachypnea, equal chest rise bilaterally. Lungs:? CTA b/l no wheezing rhonchi or rales. Cardio:?RRR no m/r/g. Abdomen: S NT ND. No CVA tenderness. Musculoskeletal:? Muscle strength and tone are equal within normal limits, no deformity. Extremities: No edema or joint effusions. No cyanosis or clubbing. Skin:? Pale,? Warm to touch,dry and intact without rashes, ulcerations or petechiae.? Neuro:? Alert and orientated x3,? sensation to touch intact in all extremities, no gross deficits noted of cranial nerves. Psych:? Patient has a well-kept appearance, appropriate affect, mental status attitude thought context and judgment are appropriate for age. Objective Labs Result Diagrams: 04/17/22 17:44 04/17/22 17:44 [facility] Medical History (Updated 04/17/22 @ 21:41 by Luca Elliott MD) Asthma Social History household members: spouse, family and children Smoking Status: Current every day smoker alcohol intake: never Assessment & Plan Assessment & Plan narrative: Acute hypoxic respiratory failure secondary to severe asthma exacerbation secondary to influenza a infection -chest x-ray negative for consolidation, pneumonia at this time, could be viral bronchitis. -Tamiflu, IV steroids, continuous nebulizer therapy, close monitoring -wean from O2 as tolerated, goal O2 92-96% while on supplemental therapy. -continue to reduce steroids, change to prednisone 40mg po daily x5 days -now off HFNC and 90% on room air, 1-2L with exertion -will try to wean O2 and plan for home on 04/23 Obesity, secondary to excess calories -outpatient follow-up Opiate use -continue home methadone. DVT and GI prophylaxis reviewed. Patient is full code Care plan extensively discussed with the patient and also at bedside, answered all questions. Dispo: Home on 04/23. Time Spent With Patient Critical Care time: I spent a total of [] minutes of critical care time on this patient's care today; this time is exclusive of procedural time.
[2022-04-23 00:39] VITALS: BP 118/67; PULSE 74; RESP 17; TEMP 36.4; O2SAT 97
[2022-04-23 03:14] VITALS: BP 126/68; PULSE 63; RESP 19; TEMP 36.5; O2SAT 97
[2022-04-23 07:00] VITALS: BP 110/65; PULSE 79; RESP 18; TEMP 36.2; O2SAT 96
[2022-04-23] MEDS: ALBUTEROL 2.5 MG/3 ML NEB (ADULT) INH ×2 (07:11→11:14)
--- NOTE | 2022-04-23 08:26 | PM.DS.1 ---
History of Present Illness History of Present Illness Date Patient Seen: 04/23/22 Chief complaint: SOB Narrative: 36F smoker with history of asthma presents by EMS for evaluation of various symptoms including fever, body aches, chills and shortness of breath evolving over the past few days.? She states that she has multiple family members in the home with influenza a.? She ran out of her inhaler and has become increasingly short of breath.? She presented to clinic initially was found to have oxygen in the upper 80s, EMS was activated and transported here with IV in place.? She has a mild headache and mild sore throat but complains of fever, chills and body aches.? She is nauseated but has had no vomiting and denies abdominal pain.? She denies chest pain but has been short of breath and increasingly wheezy.? She states taking a deep breath makes her more likely to cough.? She denies the production of any sputum.? She denies any diarrhea or urinary complaints such as dysuria, frequency or urgency. In the ER patient found to be significantly hypoxic dropping to 80s low 80s of the oxygen required 4 L to keep above 90%. She received IV steroids and nebulizer therapy before I saw her, still seems to be sleepy and using accessory muscles, looks very tired. Patient has intermittent episodes cough and yellowish sputum. She already received IV antibiotics in the ER. Requested respiratory therapy to put her on high-flow nasal cannula to help with the breathing and oxygenation given significant hypoxia on ABG. Patient able to confirm most of the details by herself and present at bedside. Discharge Providers Provider Date of admission: 04/17/22 21:24 Discharge Date: 04/23/22 Discharge provider: Naif Finney, Summary Hospital Course Discharge Diagnosis: Acute hypoxic respiratory failure secondary to severe asthma exacerbation secondary to influenza a infection ?-chest x-ray negative for consolidation, pneumonia at this time, could be viral bronchitis.? ?-Tamiflu, IV steroids, continuous nebulizer therapy, close monitoring ?-wean from O2 as tolerated, goal O2 92-96% while on supplemental therapy. ?-continue to reduce steroids, change to prednisone 40mg po daily x5 days ?-now off HFNC and 90% on room air, 1-2L with exertion ?-will try to wean O2 and plan for home on 04/23 Obesity, secondary to excess calories -outpatient follow-up Opiate use ?-continue home methadone. Hospital Course: Admitted for flu causing asthmas exacerbation requiring HFNC up to 40L and eventually weaned down after almost a week to room air with steroids and nebs treatments. Time Spent with Patient Time spent: Greater than 30 minutes Exam Vital Signs (past 8 hours): - 04/23/22 00:39 04/23/22 03:14 04/23/22 07:15 Temperature 97.5 F L 97.7 F Pulse Rate 74 63 Respiratory Rate 17 19 Blood Pressure 118/67 126/68 Pulse Oximetry 97 97 Oxygen Delivery Method Nasal Cannula Oxygen Flow Rate 2 0 2 Fraction of Inspired Oxygen 28 SaO2/FiO2 Ratio 353 Oxygen Delivery Method Nasal Cannula Oxygen Flow Rate 2 Narrative Exam Narrative: General:? Patient is well developed and well nourished HEENT:? Normocephalic, atraumatic, extraocular muscles intact, oral pharynx is clear and mucous membranes are moist. Neck: supple and symmetric, trachea is midline, no cervical adenopathy. Negative for JVD Chest:? Normal AP diameter and contour without kyphoscoliosis, no tachypnea, equal chest rise bilaterally. Lungs:? CTA b/l no wheezing rhonchi or rales. Cardio:?RRR no m/r/g. Abdomen: S NT ND. No CVA tenderness. Musculoskeletal:? Muscle strength and tone are equal within normal limits, no deformity. Extremities: No edema or joint effusions. No cyanosis or clubbing. Skin:? Pale,? Warm to touch,dry and intact without rashes, ulcerations or petechiae.? Neuro:? Alert and orientated x3,? sensation to touch intact in all extremities, no gross deficits noted of cranial nerves. Psych:? Patient has a well-kept appearance, appropriate affect, mental status attitude thought context and judgment are appropriate for age. Objective Labs Result Diagrams: 04/17/22 17:44 04/17/22 17:44 [facility] Medical History (Updated 04/17/22 @ 21:41 by Luca Elliott MD) Asthma Social History household members: spouse, family and children Smoking Status: Current every day smoker alcohol intake: never Discharge Plan Discharge Plan Patient Disposition: Home Provider Discharge Comment: You were admitted for an asthma exacerbation due to the flu. This improved with nebulizers and steroids and you were able to come off oxygen. You'll need to take 3 more days of steroids at home. Discharge orders & Medications Prescriptions: New prednisone 20 mg Tablet 40 mg PO DAILY 3 Days Qty: 6 0RF Rx Instructions: start on 04/24 Continued acetaminophen 650 mg Tablet 650 mg PO Q4H PRN (Reason: Mild Pain (Scale Score 1-4)) methadone 5 mg Tablet 148 mg PO DAILY Visit Report/Discharge Packet Instructions: DI for Heart Failure, DI for Prescription Opioid Use
[2022-04-23] MEDS: predniSONE 20 MG TABLET 40 MG PO (08:59)
[2022-04-23] MEDS: DOCUSATE 100 MG CAPSULE PO (08:59)
[2022-04-23] MEDS: SODIUM CHLORIDE 0.9% FLUSH 10 ML IV (09:09)
[2022-04-23] MEDS: METHADONE INTENSOL 10 MG/ML ORAL.CONC 148 MG PO (09:18)
[2022-04-23 11:00] VITALS: BP 119/66; PULSE 67; RESP 18; TEMP 36.4; O2SAT 93
--- NOTE | 2022-04-23 11:04 | PC.NURSE ---
Addendum entered by Carlos Marroquin R.N. 04/23/22 14:17: Pt d/c'd to care of . IV d/c'd intact. Addendum entered by Carlos Marroquin R.N. 04/23/22 13:15: Pt independently active in room RT evaluated for home O2. Pt doesn't need to and has kimberly up on room without. Pt has d/c orders and will be going shortly. Original Note: Pt a&o offers no overt c/o pain. RT to evaluate for home O2. continues at bedside.
--- NOTE | 2022-04-23 11:47 | CM.DPC ---
DCP Cont: Per MD, pt is medically stable for discharge. Pt to discharge home via spouse POV. Rita Urrutia RN/DCP
== END 2022-04-23 13:45 | disposition home or self-care (01) | DRG 193 ==
LOC: ED 18:03 → AC 21:24
PROVIDERS: Emergency Medicine; Admitting Provider Family Medicine; Emergency Provider Emergency Medicine; Referring Provider Emergency Medicine; Visit Provider Internal Medicine
DX: J10.1 Influenza due to other identified influenza virus with other respiratory manifestations (principal); J96.01 Acute respiratory failure with hypoxia; J45.901 Unspecified asthma with (acute) exacerbation; F17.200 Nicotine dependence, unspecified, uncomplicated; F15.90 Other stimulant use, unspecified, uncomplicated; Z20.822 Contact with and (suspected) exposure to COVID-19
CPT/HCPCS: 0241U; 36415; 36600; 71045; 80053; 82805; 83605; 84145; 85025; 85379; 87040; 94618; 94640; 94760; 94762; 96365; 96367; 96375; 99284; 99285; C9113; J0696; J1885; J2405; J2920; J2930; J7613

== ENCOUNTER 2023-05-22 22:45 | Inpatient (IN) | payer MEDICAID, SELFPAY ==
[2022-04-17 22:50] VITALS: BMI 36.1
[2023-05-22 22:47] VITALS: BP 131/73; PULSE 98; RESP 28; TEMP 38.7; O2SAT 90; BMI 29.2
--- NOTE | 2023-05-22 22:53 | DI.RAD.S_ITS ---
PROCEDURE: XR CHEST 2V INDICATIONS: SOB, Fever TECHNIQUE: 2 views of the chest were acquired. COMPARISON: [facility], CR, XR CHEST 1V, 04/17/2022, 18:50. FINDINGS: Surgical changes and devices: None. Lungs and pleura: Lungs are clear. No pleural effusions or pneumothorax. Mediastinum: Mediastinal contours are normal. Heart size is normal. Bones and chest wall: No suspicious bony abnormalities. Soft tissues appear unremarkable. IMPRESSION: No acute cardiopulmonary abnormality is seen. Dictated by: Palmer Sands M.D. on 05/22/2023 at 23:34 Approved by: Palmer Sands M.D. on 05/22/2023 at 23:34
[2023-05-22 23:02] VITALS: O2SAT 96
[2023-05-22 23:04] VITALS: BP 147/69; PULSE 104; O2SAT 88
[2023-05-22 23:30] VITALS: PULSE 96; RESP 30; O2SAT 91
[2023-05-22 23:32] VITALS: PULSE 97; RESP 20; O2SAT 90
[2023-05-22] MEDS: ALBUTEROL 2.5 MG/3 ML NEB (ADULT) 5 MG INH (23:32)
[2023-05-22 23:43] VITALS: BP 143/82; PULSE 103; RESP 29; O2SAT 91
[2023-05-22] MEDS: SODIUM CHLORIDE 0.9% 1,000 ML 1000 ML IV (23:57)
[2023-05-22 23:58] LABS: Add Manual Diff / Slide Review NO; Basophils Absolute Auto 0 /uL (0-100); Basophils Percent Auto 0.1 % (0-2); Eosinophils Absolute Auto 0 /uL (0-450); Eosinophils Percent Auto 0.1 % (2-4); Hematocrit 35.4 % (36-46); Hemoglobin 11.6 g/dL (12.0-16.0); Lymphocytes Absolute Auto 600 /uL (1100-4500); Lymphocytes Percent Auto 6.4 % (25-40); Mean Corpuscular HGB Conc 32.8 % (30-36); Mean Corpuscular Hemoglobin 26.8 PG (26-34); Mean Corpuscular Volume 81.9 fL (80-100); Monocytes Absolute Auto 500 /uL (0-900); Monocytes Percent Auto 4.9 % (3-14); Neutrophils Absolute Auto 8500 /uL (1500-7000); Neutrophils Percent Auto 88.5 % (50-75); Platelet Count 334 X10^3/uL (150-400); Red Blood Cell Count 4.33 X10^6/uL (4.0-5.2); Red Cell Distribution Width 15.7 % (11.6-14.8); White Blood Cell Count 9.6 X10^3/uL (4.5-11.0)
[2023-05-23] VITALS (26 sets, daily range): BP systolic 114–156; BP diastolic 51–80; PULSE 78–106; RESP 16–24; TEMP 35.8–39.2; O2SAT 87–98; BMI 35.5
[2023-05-23 00:02] LABS: Influenza A - CEPHEID Flu A NEGATIVE (NEGATIVE); Influenza B - CEPHEID Flu B NEGATIVE (NEGATIVE); Respiratory Syncytial Virus POSITIVE (Negative)
[2023-05-23 00:05] LABS: INR 1.2 (0.9-1.3); Prothrombin Time 13.2 SECONDS (9.4-12.5)
[2023-05-23 00:05] LABS: COVID-19 CEPHEID 4-PLEX PCR Negative (Negative)
[2023-05-23 00:07] LABS: PTT Partial Thromboplastin Tim 38 SECONDS (25.1-36.5)
[2023-05-23 00:09] LABS: Alanine Aminotransferase 161 IU/L (<35); Albumin 4.3 g/dL (3.5-5.0); Alkaline Phosphatase 85 U/L (38-126); BUN Creatinine Ratio 16.4 (6-22); Bilirubin Total 0.6 mg/dL (0.2-1.3); Blood Urea Nitrogen 10 mg/dL (7-17); Calcium 9.3 mg/dL (8.4-10.2); Carbon Dioxide 26 mmol/L (22-32); Chloride 100 mmol/L (98-107); Estimated Glomerular Filt Rate > 60 mL/min (>60); Globulin 4.1 g/dL (1.7-4.1); Glucose 85 mg/dL (70-100); HEMOLYSIS < 15 (0-50); Lipase 20 U/L (23-300); Potassium 4.2 mmol/L (3.4-5.1); Sodium 136 mmol/L (137-145); Total Protein 8.4 g/dL (6.3-8.2)
[2023-05-23 00:25] LABS: Procalcitonin 0.08 ng/mL (<0.5)
--- NOTE | 2023-05-23 01:50 | ED_ITS ---
HPI - SOB/Dyspnea General Chief Complaint: Shortness of Breath/Dyspnea Stated Complaint: SOB Time Seen by Provider: 05/22/23 23:03 History of Present Illness HPI Narrative: 37 y/o female presents with increased dypsnea and cough for x 1-2 days. No other complaints or associated symptoms noted. Patient has a history of asthma. Patient reports 148 mg of methadone daily received her daily dose today. Patient arrives via private vehicle. Patient is awake, alert appears ill, tachypneic but no apparent distress maintaining her own airway. Related Data Home Medications Medication Instructions Recorded Confirmed acetaminophen 650 mg tablet 650 mg PO Q4H PRN Mild Pain (Scale 04/17/22 04/17/22 Score 1-4) methadone 5 mg tablet 260 mg PO DAILY 04/17/22 05/23/23 Allergies Allergy/AdvReac Type Severity Reaction Status Date / Time No Known Drug Allergies Allergy Verified 05/22/23 22:52 Review of Systems Review of Systems Narrative: See HPI for pertinent positives otherwise review of systems negative. Patient History Medical History Methadone dependence Asthma Social History household members: spouse, family and children Smoking Status: Former smoker alcohol intake: never Smoking Status: Former smoker Substance Use Type: does not use Exam Initial Vital Signs Initial Vital Signs: Vital Signs Temperature 101.6 F H 05/22/23 22:47 Pulse Rate 98 H 05/22/23 22:47 Respiratory Rate 28 H 05/22/23 22:47 Blood Pressure 131/73 05/22/23 22:47 Pulse Oximetry 90 L 05/22/23 22:47 Oxygen Delivery Method Room Air 05/22/23 22:47 Const General: cooperative, well developed, well groomed and ill appearing [facility] Head: normal to inspection, normocephalic and atraumatic Eyes General: Yes appearance normal, both eyes and all related structures Neck Neck: normal visual inspection, full ROM, no meningeal signs and tracheal deviation Chest Chest: normal inspection of the chest Resp Effort & Inspection: audible wheezes, cough, tachypneic, no tracheal deviation and prolonged expiratory phase Cardio Rate: tachycardic Rhythm: regular rhythm GI Inspection: normal to inspection Other: Exam deferred Back/Spine/Pelvis Back: normal to inspection Skin General: no rashes or lesions noted and turgor normal Neuro General: patient alert, patient awake, patient oriented x3 and moves all extremities Extrem General: normal to inspection, capillary refill normal, No no pedal edema, No clubbing and No cyanosis Psych Appearance: grossly normal and well kempt Course Course Course Narrative: See MDM Orders Ordered: ED Orders 05/22/23 22:50 Covid-19 + FLU A/B + RSV - PCR Stat 05/22/23 22:53 XR chest 2V Stat 05/22/23 23:02 RT Consult Eval and Treat NOW 05/22/23 23:07 EKG-12 Lead Stat 05/22/23 23:45 Complete Blood Count AUTO DIFF Stat Comprehensive Metabolic Panel Stat Lactate (Lactic Acid) Stat Lipase Stat PTT Partial Thromboplastin [place] Stat Procalcitonin Stat Prothrombin Time INR Stat Ondansetron HCl (Ondansetron 4 Mg/2 Ml Inj) 4 mg IV NOW PRN PRN Reason: Nausea And Vomiting Ondansetron HCl (Ondansetron 4 Mg Odt) 4 mg SL NOW PRN PRN Reason: Nausea And Vomiting Discontinued Medications Albuterol (Albuterol 2.5 Mg/3 Ml Neb (Adult)) 5 mg INH NOW ONE Stop: 05/22/23 23:16 Last Admin: 05/22/23 23:32 Dose: 5 mg Documented By: XIMENA Dexamethasone (Dexamethasone 10 Mg/Ml Vial) 10 mg IV NOW ONE Stop: 05/23/23 01:58 Sodium Chloride (Normal Saline 0.9%) 1,000 mls @ 1,000 mls/hr IV BOLUS ONE Stop: 05/23/23 00:06 Last Infusion: 05/23/23 01:00 Dose: Infused Documented By: Admin: 05/22/23 23:57 Dose: 1,000 mls/hr Documented By: CELI Acetaminophen (Ofirmev) 1,000 mg in 100 mls @ 400 mls/hr IV NOW ONE Stop: 05/23/23 02:12 Vital Signs Vital signs: Vital Signs - 8 hr 05/22/23 22:47 05/22/23 23:02 05/22/23 23:04 Temperature 101.6 F H Pulse Rate 98 H 104 H Respiratory Rate 28 H Blood Pressure 131/73 Pulse Oximetry 90 L 96 88 L Oxygen Delivery Method Room Air Oxygen Flow Rate Fraction of Inspired Oxygen 05/22/23 23:04 05/22/23 23:30 05/22/23 23:32 Temperature Pulse Rate 96 H 97 H Respiratory Rate 30 H 20 Blood Pressure 147/69 H Pulse Oximetry 91 90 L Oxygen Delivery Method Nasal Cannula Nasal Cannula Oxygen Flow Rate 2 2 Fraction of Inspired Oxygen 28 05/22/23 23:43 05/22/23 23:43 05/23/23 00:00 Temperature Pulse Rate 103 H Respiratory Rate 29 H Blood Pressure 143/82 H 146/80 H Pulse Oximetry 91 Oxygen Delivery Method Nasal Cannula Oxygen Flow Rate 2 Fraction of Inspired Oxygen 05/23/23 00:00 05/23/23 00:30 05/23/23 00:30 Temperature Pulse Rate 102 H 101 H Respiratory Rate 24 23 Blood Pressure 142/80 H Pulse Oximetry 92 94 Oxygen Delivery Method Oxygen Flow Rate Fraction of Inspired Oxygen 05/23/23 01:00 05/23/23 01:00 05/23/23 01:30 Temperature Pulse Rate 101 H 100 H Respiratory Rate 23 22 Blood Pressure 130/74 Pulse Oximetry 91 92 Oxygen Delivery Method Oxygen Flow Rate Fraction of Inspired Oxygen 05/23/23 01:30 Temperature Pulse Rate Respiratory Rate Blood Pressure 134/76 Pulse Oximetry Oxygen Delivery Method Oxygen Flow Rate Fraction of Inspired Oxygen MDM - SOB/Dyspnea Differential Diagnosis Differential diagnosis: Likely congestive heart failure, community acquired pneumonia, asthma with exacerbation, pulmonary embolism and other (Viral syndrome) Lab Data Lab results narrative: Anemia noted along with minor hyponatremia, transaminitis 05/22/23 23:45 05/22/23 23:45 Labs: Lab Results 05/22/23 05/22/23 Range/Units 22:50 23:45 WBC 9.6 (4.5-11.0) X10^3/uL RBC 4.33 (4.0-5.2) X10^6/uL Hgb 11.6 L (12.0-16.0) g/dL Hct 35.4 L (36-46) % MCV 81.9 (80-100) fL MCH 26.8 (26-34) PG MCHC 32.8 (30-36) % RDW 15.7 H (11.6-14.8) % Plt Count 334 (150-400) X10^3/uL Neut % (Auto) 88.5 H (50-75) % Lymph % (Auto) 6.4 L (25-40) % [place] % (Auto) 4.9 (3-14) % Eos % (Auto) 0.1 L (2-4) % Baso % (Auto) 0.1 (0-2) % Neut # (Auto) 8500 H (7640-7277) /uL Lymph # (Auto) 600 L (6127-5276) /uL [place] # (Auto) 500 (0-900) /uL Eos # (Auto) 0 (0-450) /uL Baso # (Auto) 0 (0-100) /uL PT 13.2 H (9.4-12.5) SECONDS INR 1.2 (0.9-1.3) APTT 38 H (25.1-36.5) SECONDS Sodium 136 L (137-145) mmol/L Potassium 4.2 (3.4-5.1) mmol/L Chloride 100 (98-107) mmol/L Carbon Dioxide 26 (22-32) mmol/L BUN 10 (7-17) mg/dL Creatinine 0.61 (0.52-1.04) mg/dL Estimated GFR > 60 (>60) mL/min BUN/Creatinine Ratio 16.4 (6-22) Glucose 85 (70-100) mg/dL Lactate 1.0 (0.7-2.1) mmol/L Calcium 9.3 (8.4-10.2) mg/dL Total Bilirubin 0.6 (0.2-1.3) mg/dL AST TNP ALT 161 H (<35) IU/L Alkaline Phosphatase 85 (38-126) U/L Total Protein 8.4 H (6.3-8.2) g/dL Albumin 4.3 (3.5-5.0) g/dL Globulin 4.1 (1.7-4.1) g/dL Albumin/Globulin Ratio 1.0 (1.0-2.8) Lipase 20 L (23-300) U/L Procalcitonin 0.08 (<0.5) ng/mL SARS-CoV-2 (PCR) Negative (Negative) Influenza A (RT-PCR) Flu a negative (NEGATIVE) Influenza B (RT-PCR) Flu b negative (NEGATIVE) RSV (PCR) Positive A (Negative) Imaging Data Chest x-ray: My Impression: No acute disease. Imaging is not suggestive of pneumonia, pneumothorax, pleural effusion or mass MDM Narrative Medical decision making narrative: Patient presents with increased dyspnea and cough. Patient reportedly was in her normal state of health prior to symptom onset. Tachypnea and increased work of breathing noted. Reactive airway. Albuterol and DuoNeb were given with improvement in symptoms. Patient requiring supplemental oxygen is baseline room-air pulse oximetry at 85%, abnormal pulse oximetry. Patient requiring 2 L nasal cannula supplemental oxygen to maintain saturation above 92%. No leukocytosis. Minor hypokalemia noted along with anemia. Chest x-ray is not suggestive of pneumonia, pneumothorax, pneumomediastinum, pleural effusion or mass. RSV positive. Decadron 10 mg IV given along with IV acetaminophen for fever or develop during the emergency stay. Patient experiencing nausea and emesis. Zofran given. Patient is unlikely going through withdrawal as patient received methadone earlier today. Patient's symptoms most likely are due to bronchiolitis from RSV and reactive airway. Patient is stable the warrants admission for further evaluation and management due to new oxygen requirements. Discussed case with hospitalist and patient stable at time of transfer to the floor here at [facility]. Discharge Plan Departure Patient Disposition: Admitted as Observation Clinical Impression: Respiratory syncytial virus (RSV) bronchiolitis, Hypoxemia Asthma with exacerbation Qualifiers: Asthma severity: moderate Asthma persistence: unspecified Qualified Code(s): J 45.901 - Unspecified asthma with (acute) exacerbation Prescriptions: No Action acetaminophen 650 mg Tablet 650 mg PO Q4H PRN (Reason: Mild Pain (Scale Score 1-4)) methadone 5 mg Tablet 148 mg PO DAILY Admit Date/Time: 05/23/23 02:21 Admit Provider: Osiris Blake
[2023-05-23] MEDS: DEXAMETHASONE 10 MG/ML VIAL IV (02:22)
[2023-05-23] MEDS: ACETAMINOPHEN IV 1,000 MG/100 ML VIAL 400 MG IV (02:23)
--- NOTE | 2023-05-23 02:24 | P.HP_ITS ---
History of Present Illness History of Present Illness Date Patient Seen: 05/23/23 Time Patient Seen: 04:28 Date of Onset of Symptoms: 05/21/23 Chief complaint: SOB Narrative: States she started to have a non-productive cough with shortness of breath 2 days ago. Feels similar but not as severe to 2021 when she had the flu. Associated fever, nausea, and unwell feeling. [email or web address] had flu like symptoms but not as severe. Denies constipation, diarrhea, symptoms. Feels like her ankles may be a bit swollen. Denies any other symptoms. Previous admission 04/2022 for similar presentation with acute respiratory failure due to Influenza requiring HFNC. Evaluated in ED to have acute hypoxic respiratory failure due to RSV requiring 2L NC, Decadron, nebulizer. Discussed with Dr. Mcgraw for admission to acute medical [facility] for continued oxygen therapy and pulmonary optimzation. [facility] Medical History Methadone dependence Asthma Social History household members: spouse, family and children Smoking Status: Former smoker alcohol intake: never Meds Home Medications and Allergies Home Medications Medication Instructions Recorded Confirmed Type acetaminophen 650 mg tablet 650 mg PO Q4H PRN Mild Pain (Scale 04/17/22 04/17/22 History Score 1-4) methadone 5 mg tablet 260 mg PO DAILY 04/17/22 05/23/23 History Allergies Allergy/AdvReac Type Severity Reaction Status Date / Time No Known Drug Allergies Allergy Verified 05/22/23 22:52 Review of Systems Review of Systems ROS: Yes All systems reviewed with the patient and are negative except as otherwise documented Exam Vital Signs (past 8 hours): - 05/22/23 22:47 05/22/23 23:02 05/22/23 23:04 Temperature 101.6 F H Pulse Rate 98 H 104 H Respiratory Rate 28 H Blood Pressure 131/73 Pulse Oximetry 90 L 96 88 L Oxygen Delivery Method Room Air Oxygen Flow Rate Fraction of Inspired Oxygen 05/22/23 23:04 05/22/23 23:30 05/22/23 23:32 Temperature Pulse Rate 96 H 97 H Respiratory Rate 30 H 20 Blood Pressure 147/69 H Pulse Oximetry 91 90 L Oxygen Delivery Method Nasal Cannula Nasal Cannula Oxygen Flow Rate 2 2 Fraction of Inspired Oxygen 28 05/22/23 23:43 05/22/23 23:43 05/23/23 00:00 Temperature Pulse Rate 103 H Respiratory Rate 29 H Blood Pressure 143/82 H 146/80 H Pulse Oximetry 91 Oxygen Delivery Method Nasal Cannula Oxygen Flow Rate 2 Fraction of Inspired Oxygen 05/23/23 00:00 05/23/23 00:30 05/23/23 00:30 Temperature Pulse Rate 102 H 101 H Respiratory Rate 24 23 Blood Pressure 142/80 H Pulse Oximetry 92 94 Oxygen Delivery Method Oxygen Flow Rate Fraction of Inspired Oxygen 05/23/23 01:00 05/23/23 01:00 05/23/23 01:30 Temperature Pulse Rate 101 H 100 H Respiratory Rate 23 22 Blood Pressure 130/74 Pulse Oximetry 91 92 Oxygen Delivery Method Oxygen Flow Rate Fraction of Inspired Oxygen 05/23/23 01:30 Temperature Pulse Rate Respiratory Rate Blood Pressure 134/76 Pulse Oximetry Oxygen Delivery Method Oxygen Flow Rate Fraction of Inspired Oxygen Fraction of Inspired Oxygen 28 SaO2/FiO2 Ratio 321 Oxygen Delivery Method Nasal Cannula Oxygen Flow Rate 2 Narrative Exam Narrative: Pt amenable to telemedicine evaluation. Cart used, no stethoscope available. Nursing evaluation lungs CTA b/l, cardiac reg tachycardic rate without murmur, abdomen normoactive BS. Recordings sent and reviewed to confirm. Const General: comfortable Orientation: oriented x3 HENMT Head: normocephalic Face and sinus: normal facial exam Eyes General: appearance normal, both eyes and all related structures Chest Chest: normal inspection of the chest Resp Effort & Inspection: tachypneic Cardio Other: No JVD GI Inspection: normal to inspection Skin Rashes: no rashes Neuro General: moves all extremities Extrem General: no clubbing, cyanosis or edema Objective Imaging Chest x-ray: My impression: NAP, no consolidation, agree with radiologist read Radiologist's impression: NAP Labs 05/22/23 23:45 05/22/23 23:45 Labs: Laboratory Results - last 24 hr 05/22/23 05/22/23 22:50 23:45 WBC 9.6 RBC 4.33 Hgb 11.6 L Hct 35.4 L MCV 81.9 MCH 26.8 MCHC 32.8 RDW 15.7 H Plt Count 334 Neut % (Auto) 88.5 H Lymph % (Auto) 6.4 L [place] % (Auto) 4.9 Eos % (Auto) 0.1 L Baso % (Auto) 0.1 Neut # (Auto) 8500 H Lymph # (Auto) 600 L [place] # (Auto) 500 Eos # (Auto) 0 Baso # (Auto) 0 PT 13.2 H INR 1.2 APTT 38 H Sodium 136 L Potassium 4.2 Chloride 100 Carbon Dioxide 26 BUN 10 Creatinine 0.61 Estimated GFR > 60 BUN/Creatinine Ratio 16.4 Glucose 85 Lactate 1.0 Calcium 9.3 Total Bilirubin 0.6 AST TNP ALT 161 H Alkaline Phosphatase 85 Total Protein 8.4 H Albumin 4.3 Globulin 4.1 Albumin/Globulin Ratio 1.0 Lipase 20 L Procalcitonin 0.08 SARS-CoV-2 (PCR) Negative Influenza A (RT-PCR) Flu a negative Influenza B (RT-PCR) Flu b negative RSV (PCR) Positive A Assessment & Plan Assessment and plan (1) Sepsis: Qualifiers: Acute respiratory failure type: with hypoxia Sepsis acute organ dysfunction status: with acute organ dysfunction Sepsis type: sepsis due to unspecified organism Severe sepsis acute organ dysfunction type: acute respiratory failure Severe sepsis shock status: without septic shock Qualified Code(s): A41.9 - Sepsis, unspecified organism; R65.20 - Severe sepsis without septic shock; J96.01 - Acute respiratory failure with hypoxia Status: Acute (2) Acute hypoxemic respiratory failure: Status: Acute (3) Asthma with acute exacerbation in adult: Qualifiers: Asthma persistence: unspecified Asthma severity: unspecified severity Qualified Code(s): J45.901 - Unspecified asthma with (acute) exacerbation Status: Acute (4) RSV (acute bronchiolitis due to respiratory syncytial virus): Status: Acute (5) Hyponatremia: Status: Acute (6) Elevated transaminase level: Status: Acute Plan Admit to medical [facility] with oxygen therapy O2 85% requiring 2L NC to improve to 92%, RR 22-24, Temp 102.5 Continue pulmonary optimization with oxygen therapy, scheduled nebulizer, scheduled steroids Solumedrol 40mg IV q8, supportive care Mild hyponatremia, Gentle IV fluids, encourage adequate diet, monitor Na Isolated elevated ALT 2/2 above, monitor inpt and follow up with PCP Methadone dependence, confirm home dose and continue in am, last dose /4 am Chronic anemia as baseline without evidence of blood loss COVID-19 COVID-19 status: Negative Time Spent With Patient Time with patient: 50 to 69 minutes with 50% spent counseling/coordinating care
[2023-05-23] MEDS: SODIUM CHLORIDE 0.9% 1,000 ML 75 ML IV (03:28)
--- NOTE | 2023-05-23 04:21 | PC.ADMIT ---
[id number] Zakiya hardin Admission Note:Patient admitted to AC unit from ED at 03:05, transferred via stretcher. A/O x 4, very sleepy, but able to answer questions appropriately. NS running @ 75/hr. O2 is 95% on 3 L via nasal cannula. Productive cough noted. Spouse present at admit. The patient,Donnie Ojeda,37 y/o, was given written information regarding hospital policies, unit procedures and contact persons. Patient's smoking status: Former smoker. Vital Signs - 8 hr 05/22/23 22:47 05/22/23 23:02 05/22/23 23:04 Temperature 101.6 F H Pulse Rate 98 H 104 H Respiratory Rate 28 H Blood Pressure 131/73 Pulse Oximetry 90 L 96 88 L Oxygen Delivery Method Room Air Oxygen Flow Rate Fraction of Inspired Oxygen 05/22/23 23:04 05/22/23 23:30 05/22/23 23:32 Temperature Pulse Rate 96 H 97 H Respiratory Rate 30 H 20 Blood Pressure 147/69 H Pulse Oximetry 91 90 L Oxygen Delivery Method Nasal Cannula Nasal Cannula Oxygen Flow Rate 2 2 Fraction of Inspired Oxygen 28 05/22/23 23:43 05/22/23 23:43 05/23/23 00:00 Temperature Pulse Rate 103 H Respiratory Rate 29 H Blood Pressure 143/82 H 146/80 H Pulse Oximetry 91 Oxygen Delivery Method Nasal Cannula Oxygen Flow Rate 2 Fraction of Inspired Oxygen 05/23/23 00:00 05/23/23 00:30 05/23/23 00:30 Temperature Pulse Rate 102 H 101 H Respiratory Rate 24 23 Blood Pressure 142/80 H Pulse Oximetry 92 94 Oxygen Delivery Method Oxygen Flow Rate Fraction of Inspired Oxygen 05/23/23 01:00 05/23/23 01:00 05/23/23 01:30 Temperature Pulse Rate 101 H 100 H Respiratory Rate 23 22 Blood Pressure 130/74 Pulse Oximetry 91 92 Oxygen Delivery Method Oxygen Flow Rate Fraction of Inspired Oxygen 05/23/23 01:30 05/23/23 02:00 05/23/23 02:00 Temperature 102.5 F H Pulse Rate 106 H Respiratory Rate 23 Blood Pressure 134/76 156/77 H Pulse Oximetry 93 Oxygen Delivery Method Nasal Cannula Oxygen Flow Rate 2 Fraction of Inspired Oxygen 05/23/23 02:30 05/23/23 02:30 05/23/23 02:32 Temperature Pulse Rate 96 H Respiratory Rate 24 Blood Pressure 141/68 H Pulse Oximetry 95 94 Oxygen Delivery Method Nasal Cannula Nasal Cannula Oxygen Flow Rate 3 3 Fraction of Inspired Oxygen 05/23/23 02:50 05/23/23 03:44 Temperature 100.5 F H 99.1 F Pulse Rate 98 H 85 Respiratory Rate 22 24 Blood Pressure 132/62 124/74 Pulse Oximetry 95 94 Oxygen Delivery Method Nasal Cannula Oxygen Flow Rate 3 3 Fraction of Inspired Oxygen
[2023-05-23] MEDS: ONDANSETRON 4 MG/2 ML INJ IV ×2 (05:10→20:12)
--- NOTE | 2023-05-23 05:27 | RT ---
At 0527, placed pt on HHFNC 40L/35%, pt tolerating well. Device plugged into red-outlet.
[2023-05-23 05:33] LABS: Pregnancy Test Urine Negative (Negative)
[2023-05-23 05:35] LABS: Appearance Urine UA CLEAR; Bilirubin Urine UA NEGATIVE (NEGATIVE); Color Urine UA YELLOW; Glucose Urine UA NEGATIVE (Negative); Ketones Urine UA 2+ (NEGATIVE); Leukocyte Esterase Urine UA NEGATIVE (NEGATIVE); Nitrite Urine UA NEGATIVE (Negative); Occult Blood Urine UA NEGATIVE (Negative); Protein Urine UA NEGATIVE (Negative); Specific Gravity Urine UA 1.025 (1.000-1.035)
[2023-05-23 05:41] LABS: Bacteria Urine Moderate (10-30); Culture Indicated Urine Cult Not Indicated; RBC Urine 0-1/HPF (0-5/HPF); Squamous Epithelial Cell Urine 5-10 /HPF (0-5/HPF); WBC Urine None Seen (0-5/HPF)
[2023-05-23 06:36] LABS: Add Manual Diff / Slide Review NO; Basophils Absolute Auto 0 /uL (0-100); Basophils Percent Auto 0.2 % (0-2); Eosinophils Absolute Auto 0 /uL (0-450); Hematocrit 34.9 % (36-46); Hemoglobin 11.4 g/dL (12.0-16.0); Lymphocytes Absolute Auto 500 /uL (1100-4500); Lymphocytes Percent Auto 5.7 % (25-40); Mean Corpuscular HGB Conc 32.6 % (30-36); Mean Corpuscular Hemoglobin 26.7 PG (26-34); Mean Corpuscular Volume 81.9 fL (80-100); Monocytes Absolute Auto 200 /uL (0-900); Monocytes Percent Auto 1.7 % (3-14); Neutrophils Absolute Auto 8900 /uL (1500-7000); Neutrophils Percent Auto 92.4 % (50-75); Platelet Count 312 X10^3/uL (150-400); Red Blood Cell Count 4.26 X10^6/uL (4.0-5.2); Red Cell Distribution Width 15.5 % (11.6-14.8); White Blood Cell Count 9.6 X10^3/uL (4.5-11.0)
[2023-05-23 06:45] LABS: Chloride 104 mmol/L (98-107); HEMOLYSIS < 15 (0-50)
[2023-05-23 06:47] LABS: Alanine Aminotransferase 142 IU/L (<35); Albumin 4.1 g/dL (3.5-5.0); Alkaline Phosphatase 80 U/L (38-126); BUN Creatinine Ratio 13.6 (6-22); Bilirubin Total 0.6 mg/dL (0.2-1.3); Blood Urea Nitrogen 8 mg/dL (7-17); Calcium 9.1 mg/dL (8.4-10.2); Carbon Dioxide 25 mmol/L (22-32); Estimated Glomerular Filt Rate > 60 mL/min (>60); Globulin 4.2 g/dL (1.7-4.1); Glucose 120 mg/dL (70-100); Potassium 4.3 mmol/L (3.4-5.1); Sodium 138 mmol/L (137-145); Total Protein 8.3 g/dL (6.3-8.2)
[2023-05-23 07:01] LABS: Erythrocyte Sedimentation Rate 57 MM/HR (0-20)
[2023-05-23] MEDS: ACETAMINOPHEN 325 MG TABLET 650 MG PO ×2 (08:52→19:01)
[2023-05-23] MEDS: DOCUSATE 100 MG CAPSULE PO ×2 (08:52→20:09)
[2023-05-23] MEDS: ENOXAPARIN 40 MG/0.4 ML SYRINGE SUBCUT (08:52)
[2023-05-23] MEDS: ALBUTEROL 2.5 MG/3 ML NEB (ADULT) INH ×4 (09:11→23:19)
[2023-05-23] MEDS: ALBUTEROL 2.5 MG/3 ML NEB (ADULT) 20 MG INH (09:34)
[2023-05-23] MEDS: METHADONE INTENSOL 10 MG/ML ORAL.CONC 260 MG PO (09:41)
[2023-05-23] MEDS: FLUTICASONE 120 SPRAY/16 GM SPRAY.SUSP NASAL (09:41)
--- NOTE | 2023-05-23 10:21 | CM.DANOTE ---
Initial DCP Assessment Visit Note Reviewed EMR and team rounds for pt's medical status and updates. Went to the room to meet with pt bedside, her was sleeping and she could hardly breath, so this a a brief assessment at this time. Pt and spouse live with their children in their own home in [place]. No anticipated home d/c needs identified at this time. Payor: Medicaid PCP-U/K Pt is a 37 year-old F who presented to the ED last night with worsening cough, dyspnea, fever, nausea, and overall malaise. She states that she started having a cough 2-days ago which quickly exacerbated. ED eval determined pt to have acute hypoxic respiratory failure due to RSV and sepsis. Pt was started on 2LO2 with nasal cannula, but was changed over to high-flow O2 while still in the ED. Pt was admitted for continued respiratory therapy, fluids, and steroids. Anticipate pt will be here several days. DCP will continue to follow and assist with evolving care plan and needs. Discharge Planning/Care Management CM Discharge Assessment Start: 05/23/23 09:24 Freq: Status: Active Protocol: Document 05/23/23 09:24 DPL (Rec: 05/23/23 09:31 DPL [id number]) Discharge Planning Assessment Assigned Cat Breeder ANGLE [place] Advance Directives? No History Provided By Patient Has Patient been admitted in last 30 No days? Prior Living Arrangements House Household Members spouse,family,children Type of transporation used prior to Drives own vehicle admit Independent with ADL's Yes Is patient alert and oriented? Yes Caregiver for Another Yes: Children Comment N/A Comment No anticipated home d/c needs identified at this time. Barriers to Discharge No Discharge Plan Home Transportation Arrangement Spouse POV Referrals Initiated None needed Whiteboard Updated in Patient Room with Yes name and ext. # of Cat Breeder Review Status In Process Please Provide Date Initial DC 05/23/23 Assessment Was Performed
--- NOTE | 2023-05-23 10:58 | RT ---
pt dipika cont neb tx well, pt states good improvement noted and on HHFNC
--- NOTE | 2023-05-23 13:34 | P.HP_ITS ---
History of Present Illness History of Present Illness Date Patient Seen: 05/23/23 Time Patient Seen: 09:00 Date of Onset of Symptoms: 05/21/23 Chief complaint: SOB Narrative: Per overnight provider, States she started to have a non-productive cough with shortness of breath 2 days ago. Feels similar but not as severe to 2021 when she had the flu. Associated fever, nausea, and unwell feeling. Shoshana had flu like symptoms but not as severe. Denies constipation, diarrhea, symptoms. Feels like her ankles may be a bit swollen. Denies any other symptoms. Previous admission 04/2022 for similar presentation with acute respiratory failure due to Influenza requiring HFNC. Evaluated in ED to have acute hypoxic respiratory failure due to RSV requiring 2L NC, Decadron, nebulizer. Discussed with Dr. Mcgraw for admission to acute medical [facility] for continued oxygen therapy and pulmonary optimzation. This is a 37 year old female with PMH of opiate use, asthma, distant (2 yr ago) admission for respiratory failure due to influenza requiring high flow oxygen admitted overnight for similar. This time testing was positive for RSV. She had been short of breath for the past couple of days with rhinorrhea, headaches, nausea, mildly productive cough, and pleuritic chest pain. She is improving a bit this morning, still quite dyspnic with minimal exertion and requiring heated high flow. [facility] Medical History Methadone dependence Asthma Social History household members: spouse, family and children Smoking Status: Former smoker alcohol intake: never Meds Home Medications and Allergies Home Medications Medication Instructions Recorded Confirmed Type acetaminophen 650 mg tablet 650 mg PO Q4H PRN Mild Pain (Scale 04/17/22 05/23/23 History Score 1-4) methadone 5 mg tablet 260 mg PO DAILY 04/17/22 05/23/23 History Allergies Allergy/AdvReac Type Severity Reaction Status Date / Time No Known Drug Allergies Allergy Verified 05/22/23 22:52 Review of Systems Review of Systems Narrative: All other systems reviewed with the patient and are negative unless otherwise stated. Exam Vital Signs (past 8 hours): - 05/23/23 06:32 05/23/23 07:00 05/23/23 08:50 Temperature 96.4 F L Pulse Rate 90 Respiratory Rate 16 Blood Pressure 114/51 L Pulse Oximetry 97 97 Oxygen Delivery Method Heated High Flow Heated High Flow Oxygen Flow Rate 40 Fraction of Inspired Oxygen 05/23/23 08:50 05/23/23 09:00 05/23/23 09:11 Temperature Pulse Rate 80 78 Respiratory Rate 24 24 Blood Pressure Pulse Oximetry 94 95 94 Oxygen Delivery Method Heated High Flow Heated High Flow Oxygen Flow Rate 40 35 Fraction of Inspired Oxygen 35 05/23/23 09:34 05/23/23 12:57 Temperature Pulse Rate 96 H Respiratory Rate 24 Blood Pressure Pulse Oximetry 95 Oxygen Delivery Method Heated High Flow Oxygen Flow Rate 35 Fraction of Inspired Oxygen Fraction of Inspired Oxygen 35 SaO2/FiO2 Ratio 268 Oxygen Delivery Method Heated High Flow Oxygen Flow Rate 35 Narrative Exam Narrative: General:? Patient is acutely ill appearing female, dyspnic with prolonged sentences. HEENT:? Normocephalic, atraumatic, extraocular muscles intact, oral pharynx is clear and mucous membranes are moist. Neck: supple and symmetric, trachea is midline, no cervical adenopathy. Negative for JVD Chest:? Normal AP diameter and contour without kyphoscoliosis, no tachypnea, equal chest rise bilaterally. Lungs:? diffuse wheezing, though quite soft with diminished air flow. Cardio:?RRR no m/r/g. Abdomen: S NT ND. Musculoskeletal:? Muscle strength and tone are equal within normal limits, no deformity. Extremities: No edema or joint effusions. No cyanosis or clubbing. Skin:? Pale,? Warm to touch,dry and intact without rashes, ulcerations or petechiae.? Neuro:? Alert and orientated x3,? sensation to touch intact in all extremities, no gross deficits noted of cranial nerves. Psych:? Patient has a well-kept appearance, appropriate affect, mental status attitude thought context and judgment are appropriate for age. Objective Labs 05/23/23 06:25 05/23/23 06:25 Labs: Laboratory Results - last 24 hr 05/22/23 05/22/23 05/23/23 22:50 23:45 03:30 WBC 9.6 RBC 4.33 Hgb 11.6 L Hct 35.4 L MCV 81.9 MCH 26.8 MCHC 32.8 RDW 15.7 H Plt Count 334 Neut % (Auto) 88.5 H Lymph % (Auto) 6.4 L [place] % (Auto) 4.9 Eos % (Auto) 0.1 L Baso % (Auto) 0.1 Neut # (Auto) 8500 H Lymph # (Auto) 600 L [place] # (Auto) 500 Eos # (Auto) 0 Baso # (Auto) 0 ESR PT 13.2 H INR 1.2 APTT 38 H Sodium 136 L Potassium 4.2 Chloride 100 Carbon Dioxide 26 BUN 10 Creatinine 0.61 Estimated GFR > 60 BUN/Creatinine Ratio 16.4 Glucose 85 Lactate 1.0 Calcium 9.3 Total Bilirubin 0.6 AST TNP ALT 161 H Alkaline Phosphatase 85 C-Reactive Protein Total Protein 8.4 H Albumin 4.3 Globulin 4.1 Albumin/Globulin Ratio 1.0 Lipase 20 L Procalcitonin 0.08 Urine Color Yellow Urine Appearance Clear Urine pH 7.0 Ur Specific [place] 1.025 Urine Protein Negative Urine Glucose (UA) Negative Urine Ketones 2+ H Urine Occult Blood Negative Urine Nitrate Negative Urine Bilirubin Negative Urine Urobilinogen 1.0 Ur Leukocyte Esterase Negative Urine RBC 0-1/hpf Urine WBC None seen Ur Squamous Epith Cells 5-10 /hpf H Urine Bacteria Moderate (10-30) H Ur Culture Indicated? Cult not indicated Urine Test Negative SARS-CoV-2 (PCR) Negative Influenza A (RT-PCR) Flu a negative Influenza B (RT-PCR) Flu b negative RSV (PCR) Positive A 05/23/23 06:25 WBC 9.6 RBC 4.26 Hgb 11.4 L Hct 34.9 L MCV 81.9 MCH 26.7 MCHC 32.6 RDW 15.5 H Plt Count 312 Neut % (Auto) 92.4 H Lymph % (Auto) 5.7 L [place] % (Auto) 1.7 L Eos % (Auto) 0.0 L Baso % (Auto) 0.2 Neut # (Auto) 8900 H Lymph # (Auto) 500 L [place] # (Auto) 200 Eos # (Auto) 0 Baso # (Auto) 0 ESR 57 H PT INR APTT Sodium 138 Potassium 4.3 Chloride 104 Carbon Dioxide 25 BUN 8 Creatinine 0.59 Estimated GFR > 60 BUN/Creatinine Ratio 13.6 Glucose 120 H Lactate Calcium 9.1 Total Bilirubin 0.6 AST TNP ALT 142 H Alkaline Phosphatase 80 C-Reactive Protein 6.0 H Total Protein 8.3 H Albumin 4.1 Globulin 4.2 H Albumin/Globulin Ratio 1.0 Lipase Procalcitonin Urine Color Urine Appearance Urine pH Ur Specific [place] Urine Protein Urine Glucose (UA) Urine Ketones Urine Occult Blood Urine Nitrate Urine Bilirubin Urine Urobilinogen Ur Leukocyte Esterase Urine RBC Urine WBC Ur Squamous Epith Cells Urine Bacteria Ur Culture Indicated? Urine Test SARS-CoV-2 (PCR) Influenza A (RT-PCR) Influenza B (RT-PCR) RSV (PCR) Assessment & Plan Assessment & Plan narrative: 1. Sepsis ruled out - patient's only organ failure at this time due to respiratory failure. Not likely sepsis, but rather asthma exacerbation due to RSV. - UA contaminated - continue management noted below. 2. Acute hypoxemic respiratory failure secondary to asthma exacerbation due to RSV infection. - Continue to wean O2 as tolerated, goal O2 90-96% while on supplemental therapy - appreciate respiratory therapy, discussed care with them today to formulate plan. - gave 20 mg albuterol inhalation this morning, with some improvement after treatment. - continue solumedrol 40 mg IV BID, transition to oral prednisone 40 mg daily once improved. - procalcitonin negative, do not believe to have superimposed bacterial component at this time, though monitor closely. 3. Elevated transaminase level: ALT 162 on admission, improving today. Continue to follow for another couple of days, but at this time further evaluation as an outpatient is appropriate. 4. Methadone dependence - continue patient's 260 mg dosing daily, confirmed dosing. Code: Full, surrogate is patient's mother Dispo: Admitted inpatient, likely will discharge, may take 3-5 days based on previous similar admission I have utilized all available immediate resources to obtain, update, or review the patient's current medications.
[2023-05-23 15:24] LABS: Aspartate Aminotransferase 244 IU/L (14-36)
[2023-05-23 15:25] LABS: Aspartate Aminotransferase 301 IU/L (14-36)
[2023-05-24] VITALS (15 sets, daily range): BP systolic 106–127; BP diastolic 59–75; PULSE 63–90; RESP 18–24; TEMP 36.1–36.5; O2SAT 94–98
[2023-05-24] MEDS: ACETAMINOPHEN 325 MG TABLET 650 MG PO ×4 (02:56→21:30)
[2023-05-24 06:29] LABS: Add Manual Diff / Slide Review NO; Basophils Absolute Auto 0 /uL (0-100); Basophils Percent Auto 0.5 % (0-2); Eosinophils Absolute Auto 0 /uL (0-450); Hematocrit 31.1 % (36-46); Hemoglobin 10.3 g/dL (12.0-16.0); Lymphocytes Absolute Auto 1100 /uL (1100-4500); Lymphocytes Percent Auto 13.3 % (25-40); Mean Corpuscular HGB Conc 33.2 % (30-36); Mean Corpuscular Hemoglobin 27.2 PG (26-34); Mean Corpuscular Volume 81.8 fL (80-100); Monocytes Absolute Auto 500 /uL (0-900); Monocytes Percent Auto 6.7 % (3-14); Neutrophils Absolute Auto 6400 /uL (1500-7000); Neutrophils Percent Auto 79.5 % (50-75); Platelet Count 358 X10^3/uL (150-400); Red Cell Distribution Width 15.4 % (11.6-14.8); White Blood Cell Count 8.1 X10^3/uL (4.5-11.0)
[2023-05-24 06:40] LABS: Alanine Aminotransferase 118 IU/L (<35); Albumin 3.9 g/dL (3.5-5.0); Alkaline Phosphatase 65 U/L (38-126); Aspartate Aminotransferase 114 IU/L (14-36); BUN Creatinine Ratio 15.9 (6-22); Bilirubin Total 0.4 mg/dL (0.2-1.3); Blood Urea Nitrogen 10 mg/dL (7-17); Calcium 9.3 mg/dL (8.4-10.2); Carbon Dioxide 28 mmol/L (22-32); Chloride 102 mmol/L (98-107); Estimated Glomerular Filt Rate > 60 mL/min (>60); Globulin 3.9 g/dL (1.7-4.1); Glucose 101 mg/dL (70-100); HEMOLYSIS < 15 (0-50); Potassium 4.4 mmol/L (3.4-5.1); Sodium 138 mmol/L (137-145); Total Protein 7.8 g/dL (6.3-8.2)
[2023-05-24] MEDS: ALBUTEROL 2.5 MG/3 ML NEB (ADULT) INH ×5 (07:30→23:02)
[2023-05-24] MEDS: ENOXAPARIN 40 MG/0.4 ML SYRINGE SUBCUT (09:43)
[2023-05-24] MEDS: DOCUSATE 100 MG CAPSULE PO ×2 (09:43→21:30)
[2023-05-24] MEDS: ONDANSETRON 4 MG/2 ML INJ IV ×3 (09:44→21:30)
[2023-05-24] MEDS: FLUTICASONE 120 SPRAY/16 GM SPRAY.SUSP NASAL (09:44)
[2023-05-24] MEDS: METHADONE INTENSOL 10 MG/ML ORAL.CONC 260 MG PO (10:15)
--- NOTE | 2023-05-24 10:48 | PM.PN.1 ---
Subjective Subjective Interval history: 37 F admitted with asthma exacerbation, RSV infection, and acute hypoxic respiratory failure. Feeling slightly better but still quite dyspnic. Remains on heated high flow this morning. Has some nausea but no emesis. Cough continues without much change. Exam Vital Signs (past 8 hours): - 05/24/23 03:53 05/24/23 06:30 05/24/23 07:30 Temperature 96.9 F L Pulse Rate 63 72 Respiratory Rate 24 20 Blood Pressure 119/75 Pulse Oximetry 96 94 98 Oxygen Delivery Method High Flow Nasal Cannula Oxygen Flow Rate 35 35 Fraction of Inspired Oxygen 05/24/23 07:30 05/24/23 10:00 05/24/23 10:00 Temperature Pulse Rate 72 Respiratory Rate 20 Blood Pressure Pulse Oximetry 98 96 Oxygen Delivery Method Heated High Flow Heated High Flow Heated High Flow Oxygen Flow Rate 35 35 Fraction of Inspired Oxygen 35 05/24/23 10:00 Temperature 97.6 F Pulse Rate 67 Respiratory Rate 20 Blood Pressure 106/67 Pulse Oximetry 96 Oxygen Delivery Method Oxygen Flow Rate 35 Fraction of Inspired Oxygen 34 Fraction of Inspired Oxygen 34 SaO2/FiO2 Ratio 280 Oxygen Delivery Method Heated High Flow Oxygen Flow Rate 35 Narrative Exam Narrative: General:? Patient is acutely ill appearing female, dyspnic with prolonged sentences. HEENT:? Normocephalic, atraumatic, extraocular muscles intact, oral pharynx is clear and mucous membranes are moist. Neck: supple and symmetric, trachea is midline, no cervical adenopathy. Negative for JVD Chest:? Normal AP diameter and contour without kyphoscoliosis, no tachypnea, equal chest rise bilaterally. Lungs:?minimal wheezing today, though quite soft sounds with diminished air flow. Cardio:?RRR no m/r/g. Abdomen: S NT ND. Musculoskeletal:? Muscle strength and tone are equal within normal limits, no deformity. Extremities: No edema or joint effusions. No cyanosis or clubbing. Skin:? Pale,? Warm to touch,dry and intact without rashes, ulcerations or petechiae.? Neuro:? Alert and orientated x3,? sensation to touch intact in all extremities, no gross deficits noted of cranial nerves. Psych:? Patient has a well-kept appearance, appropriate affect, mental status attitude thought context and judgment are appropriate for age. Objective Labs 05/24/23 06:15 05/24/23 06:15 Labs: Laboratory Results - last 24 hr 05/22/23 05/23/23 05/24/23 23:45 06:25 06:15 WBC 8.1 RBC 3.80 L Hgb 10.3 L Hct 31.1 L MCV 81.8 MCH 27.2 MCHC 33.2 RDW 15.4 H Plt Count 358 Neut % (Auto) 79.5 H Lymph % (Auto) 13.3 L [place] % (Auto) 6.7 Eos % (Auto) 0.0 L Baso % (Auto) 0.5 Neut # (Auto) 6400 Lymph # (Auto) 1100 [place] # (Auto) 500 Eos # (Auto) 0 Baso # (Auto) 0 Sodium 138 Potassium 4.4 Chloride 102 Carbon Dioxide 28 BUN 10 Creatinine 0.63 Estimated GFR > 60 BUN/Creatinine Ratio 15.9 Glucose 101 H Calcium 9.3 Total Bilirubin 0.4 AST 301 H 244 H 114 H ALT 118 H Alkaline Phosphatase 65 Total Protein 7.8 Albumin 3.9 Globulin 3.9 Albumin/Globulin Ratio 1.0 PFSH Medical History Methadone dependence Asthma Social History household members: spouse, family and children Smoking Status: Former smoker alcohol intake: never Assessment & Plan Assessment & Plan narrative: 1. Sepsis ruled out - patient's only organ failure at this time due to respiratory failure. Not likely sepsis, but rather asthma exacerbation due to RSV. - UA contaminated - continue management noted below. 2. Acute hypoxemic respiratory failure secondary to asthma exacerbation due to RSV infection. - Continue to wean O2 as tolerated, goal O2 90-96% while on supplemental therapy. Remains on heated high flow. - appreciate respiratory therapy, discussed care with them today to formulate plan. - gave 20 mg albuterol inhalation on HD#1, with some improvement after treatment. Continue albuterol nebs q4 with additional therapy as needed q2 hr - continue solumedrol 40 mg IV BID, transition to oral prednisone 40 mg daily once improved. - procalcitonin negative, do not believe to have superimposed bacterial component at this time, though monitor closely. 3. Elevated transaminase level: ALT 162 on admission, improving today. Continue to follow for now with labs, but at this time further evaluation as an outpatient is appropriate. 4. Methadone dependence - continue patient's 260 mg dosing daily, confirmed dosing. Code: Full, surrogate is patient's mother Dispo: Admitted inpatient, likely will discharge, may take 3-5 days based on previous similar admission with the flu I have utilized all available immediate resources to obtain, update, or review the patient's current medications. Discussed with case management, respiratory therapy to formulate the above assessment and plan.
--- NOTE | 2023-05-24 11:15 | CM.DPC ---
DCP Cont: Per MD, pt remains on 35L HHFNC and not yet medically stable to discharge and likely needs another 2-3 days of medical treatment before she can wean off oxygen. Per Rn, no concerns noted at this time. ANGLE Strauss
[2023-05-25] VITALS (13 sets, daily range): BP systolic 104–125; BP diastolic 58–72; PULSE 63–82; RESP 15–22; TEMP 36.2–36.7; O2SAT 88–96
[2023-05-25] MEDS: ACETAMINOPHEN 325 MG TABLET 650 MG PO ×2 (03:06→16:45)
[2023-05-25] MEDS: ONDANSETRON 4 MG/2 ML INJ IV (03:07)
[2023-05-25 06:10] LABS: Add Manual Diff / Slide Review NO; Basophils Absolute Auto 0 /uL (0-100); Basophils Percent Auto 0.4 % (0-2); Eosinophils Absolute Auto 0 /uL (0-450); Hematocrit 32.8 % (36-46); Hemoglobin 10.9 g/dL (12.0-16.0); Lymphocytes Absolute Auto 2000 /uL (1100-4500); Lymphocytes Percent Auto 24.9 % (25-40); Mean Corpuscular HGB Conc 33.2 % (30-36); Mean Corpuscular Hemoglobin 27.1 PG (26-34); Mean Corpuscular Volume 81.5 fL (80-100); Monocytes Absolute Auto 800 /uL (0-900); Monocytes Percent Auto 9.8 % (3-14); Neutrophils Absolute Auto 5100 /uL (1500-7000); Neutrophils Percent Auto 64.9 % (50-75); Platelet Count 364 X10^3/uL (150-400); Red Blood Cell Count 4.02 X10^6/uL (4.0-5.2); Red Cell Distribution Width 15.5 % (11.6-14.8); White Blood Cell Count 7.9 X10^3/uL (4.5-11.0)
[2023-05-25 06:17] LABS: Alanine Aminotransferase 90 IU/L (<35); Albumin 3.8 g/dL (3.5-5.0); Alkaline Phosphatase 73 U/L (38-126); Aspartate Aminotransferase 56 IU/L (14-36); BUN Creatinine Ratio 25.8 (6-22); Bilirubin Total 0.3 mg/dL (0.2-1.3); Blood Urea Nitrogen 16 mg/dL (7-17); Calcium 9.2 mg/dL (8.4-10.2); Carbon Dioxide 32 mmol/L (22-32); Chloride 101 mmol/L (98-107); Estimated Glomerular Filt Rate > 60 mL/min (>60); Globulin 3.8 g/dL (1.7-4.1); Glucose 105 mg/dL (70-100); HEMOLYSIS < 15 (0-50); Potassium 4.1 mmol/L (3.4-5.1); Sodium 138 mmol/L (137-145); Total Protein 7.6 g/dL (6.3-8.2)
[2023-05-25] MEDS: ALBUTEROL 2.5 MG/3 ML NEB (ADULT) INH ×4 (07:15→19:25)
[2023-05-25] MEDS: ENOXAPARIN 40 MG/0.4 ML SYRINGE SUBCUT (09:08)
[2023-05-25] MEDS: FLUTICASONE 120 SPRAY/16 GM SPRAY.SUSP NASAL (09:09)
[2023-05-25] MEDS: DOCUSATE 100 MG CAPSULE PO ×2 (09:09→20:35)
[2023-05-25] MEDS: METHADONE INTENSOL 10 MG/ML ORAL.CONC 260 MG PO (09:09)
--- NOTE | 2023-05-25 10:11 | PM.PN.1 ---
Subjective Subjective Date Patient Seen: 05/25/23 Interval history: Pt is feeling marginally better, still very dyspneic and on heated high flow. Exam Vital Signs (past 8 hours): - 05/25/23 02:30 05/25/23 03:23 05/25/23 04:00 Temperature 97.1 F L Pulse Rate 71 Respiratory Rate 22 Blood Pressure 110/65 Pulse Oximetry 95 94 91 Oxygen Delivery Method High Flow Nasal Cannula High Flow Nasal Cannula Oxygen Flow Rate 35 35 Fraction of Inspired Oxygen 05/25/23 07:24 05/25/23 08:00 05/25/23 08:22 Temperature 97.3 F L Pulse Rate 63 72 Respiratory Rate 15 Blood Pressure 125/58 L Pulse Oximetry 96 93 93 Oxygen Delivery Method Heated High Flow Heated High Flow Oxygen Flow Rate 35 35 35 Fraction of Inspired Oxygen 35 05/25/23 09:51 Temperature Pulse Rate Respiratory Rate Blood Pressure Pulse Oximetry Oxygen Delivery Method High Flow Nasal Cannula Oxygen Flow Rate Fraction of Inspired Oxygen Fraction of Inspired Oxygen 35 SaO2/FiO2 Ratio 274 Oxygen Delivery Method High Flow Nasal Cannula Oxygen Flow Rate 35 Narrative Exam Narrative: Gen: alert, labored breathing Lungs: able to speak short sentences, bilat wheeze CV: regular ext: no edema Objective Labs 05/25/23 05:55 05/25/23 05:55 Labs: Laboratory Results - last 24 hr 05/25/23 05:55 WBC 7.9 RBC 4.02 Hgb 10.9 L Hct 32.8 L MCV 81.5 MCH 27.1 MCHC 33.2 RDW 15.5 H Plt Count 364 Neut % (Auto) 64.9 Lymph % (Auto) 24.9 L [place] % (Auto) 9.8 Eos % (Auto) 0.0 L Baso % (Auto) 0.4 Neut # (Auto) 5100 Lymph # (Auto) 2000 [place] # (Auto) 800 Eos # (Auto) 0 Baso # (Auto) 0 Sodium 138 Potassium 4.1 Chloride 101 Carbon Dioxide 32 BUN 16 Creatinine 0.62 Estimated GFR > 60 BUN/Creatinine Ratio 25.8 H Glucose 105 H Calcium 9.2 Total Bilirubin 0.3 AST 56 H ALT 90 H Alkaline Phosphatase 73 Total Protein 7.6 Albumin 3.8 Globulin 3.8 Albumin/Globulin Ratio 1.0 PFSH Medical History Methadone dependence Asthma Social History household members: spouse, family and children Smoking Status: Former smoker alcohol intake: never Assessment & Plan Assessment & Plan narrative: Assessment & Plan narrative: 1. Sepsis ruled out - patient's only organ failure at this time due to respiratory failure. Not likely sepsis, but rather asthma exacerbation due to RSV. - UA contaminated - continue management noted below. 2. Acute hypoxemic respiratory failure secondary to asthma exacerbation due to RSV infection. - Continue to wean O2 as tolerated, goal O2 90-96% while on supplemental therapy. Remains on heated high flow. - appreciate respiratory therapy, discussed care with them today to formulate plan. - gave 20 mg albuterol inhalation on HD#1, with some improvement after treatment. Continue albuterol nebs q4 with additional therapy as needed q2 hr - continue solumedrol 40 mg IV BID, transition to oral prednisone 40 mg daily once improved. - procalcitonin negative, do not believe to have superimposed bacterial component at this time, though monitor closely. 3. Elevated transaminase level: AST 301, ALT 161 on admission, improving daily. EtOH was denied by pt. Continue to follow for now with labs, but at this time further evaluation as an outpatient is appropriate. 4. Methadone dependence - continue patient's 260 mg dosing daily, confirmed dosing. Code: Full, surrogate is patient's mother
--- NOTE | 2023-05-25 10:25 | CM.DPC ---
DCP Cont: Per MD, pt remains on 35LHHF O2 but labs are improving and RT to attempt to wean pt's oxygen needs down today but not yet medically stable to discharge. ANGLE Strauss
--- NOTE | 2023-05-25 14:21 | PC.NURSE ---
Addendum entered by Eda Langley R.N. 05/25/23 18:46: Voided > 900 ml this shift. Appetite improving. Tylenol PRN for generalized aches. Original Note: Day shift note: Patient weaned off HHFNC 35L to 3L O2 via NC, sats remain 92-95% by RT. Encouraged patient up OOB to chair for meals, encouraged deep breathing, and mobility. Speaking in full sentences, mild SOB with activity. UP OOB voiding to BSC and BR. Patient reports significant improvement in breathing effort in comparison to day of admission. Persistent productive cough noted. Afebrile. Poor appetite, encouraging fluids and meals. Call light within reach. Spouse at bedside providing supportive care.
[2023-05-26] VITALS (11 sets, daily range): BP systolic 115–126; BP diastolic 64–80; PULSE 62–83; RESP 16–20; TEMP 35.6–36.8; O2SAT 93–99
[2023-05-26] MEDS: ALBUTEROL 2.5 MG/3 ML NEB (ADULT) INH ×4 (07:08→19:53)
[2023-05-26] MEDS: ONDANSETRON 4 MG/2 ML INJ IV (09:23)
[2023-05-26] MEDS: DOCUSATE 100 MG CAPSULE PO ×2 (09:24→21:03)
[2023-05-26] MEDS: FLUTICASONE 120 SPRAY/16 GM SPRAY.SUSP NASAL (09:24)
[2023-05-26] MEDS: METHADONE INTENSOL 10 MG/ML ORAL.CONC 260 MG PO (09:24)
[2023-05-26] MEDS: ENOXAPARIN 40 MG/0.4 ML SYRINGE SUBCUT (09:24)
--- NOTE | 2023-05-26 10:58 | CM.DPC ---
DCP Cont: Per MD, pt continues to improve and weaned from 35L HHF O2 now down to just 3LO2 not HHF and labs continue to improve but will likely need another day before medically stable to d/c. No further identified barriers or discharge planning needs at this time. Plan: SW to follow for possible d/c home with family tomorrow if medically stable and weaned to room air and to follow for any further identified needs. ANGLE Strauss
--- NOTE | 2023-05-26 16:01 | PC.NURSE ---
Patient had a shower and sat up in the chair for a while today. She is on 2.5L of oxygen and tolerating this well. Given zofran at the beginning of the shift and patient has been good since. in room.
--- NOTE | 2023-05-26 18:34 | PM.PN.1 ---
Subjective Subjective Interval history: Patient feeling a little better today. Still on 3L O2. Exam Vital Signs (past 8 hours): - 05/26/23 11:00 05/26/23 11:00 05/26/23 15:00 Temperature 97.1 F L 98.2 F Pulse Rate 69 64 Respiratory Rate 20 20 Blood Pressure 115/64 120/72 Pulse Oximetry 96 94 94 Oxygen Delivery Method Nasal Cannula Oxygen Flow Rate 3 3 3 Fraction of Inspired Oxygen 05/26/23 15:38 05/26/23 15:41 Temperature Pulse Rate 72 Respiratory Rate 18 Blood Pressure Pulse Oximetry 95 Oxygen Delivery Method Nasal Cannula Room Air Oxygen Flow Rate 2 Fraction of Inspired Oxygen 28 Fraction of Inspired Oxygen 28 SaO2/FiO2 Ratio 339 Oxygen Delivery Method Room Air Oxygen Flow Rate 2 Narrative Exam Narrative: Gen: alert, NAD Lungs: able to speak short sentences, bilateral rhonchi CV: regular ext: no edema Objective Labs 05/25/23 05:55 05/25/23 05:55 [facility] Medical History Methadone dependence Asthma Social History household members: spouse, family and children Smoking Status: Former smoker alcohol intake: never Assessment & Plan Assessment & Plan narrative: Assessment & Plan narrative: 1. Sepsis ruled out - patient's only organ failure at this time due to respiratory failure. Not likely sepsis, but rather asthma exacerbation due to RSV. - UA contaminated - continue management noted below. 2. Acute hypoxemic respiratory failure secondary to asthma exacerbation due to RSV infection. - Continue to wean O2 as tolerated, goal O2 90-96% while on supplemental therapy. Remains on heated high flow. - appreciate respiratory therapy, discussed care with them today to formulate plan. - gave 20 mg albuterol inhalation on HD#1, with some improvement after treatment. Continue albuterol nebs q4 with additional therapy as needed q2 hr - continue solumedrol 40 mg IV BID, transition to oral prednisone 40 mg daily once improved. - procalcitonin negative, do not believe to have superimposed bacterial component at this time, though monitor closely. 3. Elevated transaminase level: AST 301, ALT 161 on admission, improving daily. EtOH was denied by pt. Continue to follow for now with labs, but at this time further evaluation as an outpatient is appropriate. 4. Methadone dependence - continue patient's 260 mg dosing daily, confirmed dosing. Code: Full, surrogate is patient's mother Dispo: 1-2 more days until weaned off O2.
[2023-05-26] MEDS: ACETAMINOPHEN 325 MG TABLET 650 MG PO (23:55)
[2023-05-27] VITALS (11 sets, daily range): BP systolic 106–127; BP diastolic 62–77; PULSE 60–83; RESP 16–18; TEMP 35.7–36.5; O2SAT 91–98
[2023-05-27] MEDS: ALBUTEROL 2.5 MG/3 ML NEB (ADULT) INH ×5 (07:24→23:07)
--- NOTE | 2023-05-27 09:14 | PC.NURSE ---
Patient seems to be feeling better this morning. She is listening to our Piano volunteer play. She does have wheezes upon ausculation of lungs and is on 2.5L sats are in the 90s. Patient does have some sob at times. in room visiting.
[2023-05-27] MEDS: ENOXAPARIN 40 MG/0.4 ML SYRINGE SUBCUT (09:28)
[2023-05-27] MEDS: DOCUSATE 100 MG CAPSULE PO ×2 (09:28→20:20)
[2023-05-27] MEDS: METHADONE INTENSOL 10 MG/ML ORAL.CONC 260 MG PO (09:28)
[2023-05-27] MEDS: FLUTICASONE 120 SPRAY/16 GM SPRAY.SUSP NASAL (09:31)
--- NOTE | 2023-05-27 17:28 | P.PN_ITS ---
Subjective Subjective Interval history: Patient feeling marginally better today. Less cough and congestion. Thinks she may be able to go home tomorrow. Exam Vital Signs (past 8 hours): - 05/27/23 11:24 05/27/23 12:00 05/27/23 12:00 Temperature 97.7 F Pulse Rate 83 80 Respiratory Rate 16 18 Blood Pressure 127/75 Pulse Oximetry 96 91 91 Oxygen Delivery Method Nasal Cannula Nasal Cannula Oxygen Flow Rate 1 2.5 3 05/27/23 15:48 05/27/23 16:00 05/27/23 16:00 Temperature 97.3 F L Pulse Rate 73 Respiratory Rate 18 Blood Pressure 109/62 Pulse Oximetry 93 91 91 Oxygen Delivery Method Nasal Cannula Nasal Cannula Oxygen Flow Rate 2 2.5 2 Fraction of Inspired Oxygen 28 SaO2/FiO2 Ratio 339 Oxygen Delivery Method Nasal Cannula Oxygen Flow Rate 2 Narrative Exam Narrative: Gen: alert, NAD Lungs: able to speak short sentences, bilateral rhonchi CV: regular ext: no edema Objective Labs 05/25/23 05:55 05/25/23 05:55 [facility] Medical History Methadone dependence Asthma Social History household members: spouse, family and children Smoking Status: Former smoker alcohol intake: never Assessment & Plan Assessment & Plan narrative: Assessment & Plan narrative: 1. Sepsis ruled out - patient's only organ failure at this time due to respiratory failure. Not likely sepsis, but rather asthma exacerbation due to RSV. - UA contaminated - continue management noted below. 2. Acute hypoxemic respiratory failure secondary to asthma exacerbation due to RSV infection. - Continue to wean O2 as tolerated, goal O2 90-96% while on supplemental therapy. Remains on heated high flow. - appreciate respiratory therapy, discussed care with them today to formulate plan. - gave 20 mg albuterol inhalation on HD#1, with some improvement after treatment. Continue albuterol nebs q4 with additional therapy as needed q2 hr - continue solumedrol 40 mg IV BID, transition to oral prednisone 40 mg daily once improved. - procalcitonin negative, do not believe to have superimposed bacterial component at this time, though monitor closely. 3. Elevated transaminase level: AST 301, ALT 161 on admission, improving daily. EtOH was denied by pt. Continue to follow for now with labs, but at this time further evaluation as an outpatient is appropriate. 4. Methadone dependence - continue patient's 260 mg dosing daily, confirmed dosing. Code: Full, surrogate is patient's mother Dispo: Likely 1 more day to wean off O2.
[2023-05-28] VITALS (12 sets, daily range): BP systolic 110–126; BP diastolic 61–74; PULSE 68–82; RESP 16–20; TEMP 36–36.7; O2SAT 91–96
[2023-05-28] MEDS: ALBUTEROL 2.5 MG/3 ML NEB (ADULT) INH ×4 (07:22→21:08)
[2023-05-28] MEDS: METHADONE INTENSOL 10 MG/ML ORAL.CONC 260 MG PO (09:10)
[2023-05-28] MEDS: ENOXAPARIN 40 MG/0.4 ML SYRINGE SUBCUT (09:13)
[2023-05-28] MEDS: DOCUSATE 100 MG CAPSULE PO ×2 (09:13→20:11)
[2023-05-28] MEDS: FLUTICASONE 120 SPRAY/16 GM SPRAY.SUSP NASAL (09:16)
--- NOTE | 2023-05-28 10:27 | CM.DPNOTE ---
DCP Cont According to Dr Finney, patient will have a home O2 eval and then will likely be able to discharge home. No needs identified from this CM team, remain available if this changes. [place]
--- NOTE | 2023-05-28 14:35 | PM.PN.1 ---
Subjective Subjective Interval history: Patient had trouble getting to bathroom and back during home O2 test due to SOB. She thinks she needs another day. Exam Vital Signs (past 8 hours): - 05/28/23 07:26 05/28/23 07:50 05/28/23 07:52 Temperature Pulse Rate 68 Respiratory Rate 16 Blood Pressure Pulse Oximetry 94 93 Oxygen Delivery Method Nasal Cannula Nasal Cannula Nasal Cannula Oxygen Flow Rate 1 1 05/28/23 08:00 05/28/23 10:55 05/28/23 11:53 Temperature 97.4 F L Pulse Rate 69 68 Respiratory Rate 20 20 Blood Pressure 116/61 Pulse Oximetry 92 94 91 Oxygen Delivery Method Room Air Oxygen Flow Rate 2 0 05/28/23 12:00 Temperature Pulse Rate Respiratory Rate Blood Pressure Pulse Oximetry 95 Oxygen Delivery Method Nasal Cannula Oxygen Flow Rate 1 Fraction of Inspired Oxygen 28 SaO2/FiO2 Ratio 339 Oxygen Delivery Method Nasal Cannula Oxygen Flow Rate 1 Narrative Exam Narrative: Gen: alert, NAD Lungs: able to speak short sentences, bilateral rhonchi improving CV: regular ext: no edema Objective Labs 05/25/23 05:55 05/25/23 05:55 [facility] Medical History Methadone dependence Asthma Social History household members: spouse, family and children Smoking Status: Former smoker alcohol intake: never Assessment & Plan Assessment & Plan narrative: Assessment & Plan narrative: 1. Sepsis ruled out - patient's only organ failure at this time due to respiratory failure. Not likely sepsis, but rather asthma exacerbation due to RSV. - UA contaminated - continue management noted below. 2. Acute hypoxemic respiratory failure secondary to asthma exacerbation due to RSV infection. - Continue to wean O2 as tolerated, goal O2 90-96% while on supplemental therapy. Remains on heated high flow. - appreciate respiratory therapy, discussed care with them today to formulate plan. - gave 20 mg albuterol inhalation on HD#1, with some improvement after treatment. Continue albuterol nebs q4 with additional therapy as needed q2 hr - continue solumedrol 40 mg IV BID, transition to oral prednisone 40 mg daily once improved. - procalcitonin negative, do not believe to have superimposed bacterial component at this time, though monitor closely. 3. Elevated transaminase level: AST 301, ALT 161 on admission, improving daily. EtOH was denied by pt. Continue to follow for now with labs, but at this time further evaluation as an outpatient is appropriate. 4. Methadone dependence - continue patient's 260 mg dosing daily, confirmed dosing. Code: Full, surrogate is patient's mother Dispo: Likely 1 more day then dc home on 05/29.
[2023-05-29] VITALS: BP 130/66; PULSE 80; RESP 16; TEMP 37; O2SAT 93
[2023-05-29 04:00] VITALS: BP 126/80; PULSE 74; RESP 16; TEMP 36.7; O2SAT 94
[2023-05-29 07:43] VITALS: O2SAT 94
[2023-05-29 08:00] VITALS: BP 114/74; PULSE 77; RESP 16; TEMP 36.7; O2SAT 93
[2023-05-29] MEDS: FLUTICASONE 120 SPRAY/16 GM SPRAY.SUSP NASAL (08:27)
[2023-05-29] MEDS: ENOXAPARIN 40 MG/0.4 ML SYRINGE SUBCUT (08:30)
[2023-05-29] MEDS: DOCUSATE 100 MG CAPSULE PO (08:30)
--- NOTE | 2023-05-29 09:31 | PM.DS.1 ---
History of Present Illness History of Present Illness Date Patient Seen: 05/23/23 Time Patient Seen: 09:00 Date of Onset of Symptoms: 05/21/23 Chief complaint: SOB Narrative: Per overnight provider, States she started to have a non-productive cough with shortness of breath 2 days ago. Feels similar but not as severe to 2021 when she had the flu. Associated fever, nausea, and unwell feeling. [email or web address] had flu like symptoms but not as severe. Denies constipation, diarrhea, symptoms. Feels like her ankles may be a bit swollen. Denies any other symptoms. Previous admission 04/2022 for similar presentation with acute respiratory failure due to Influenza requiring HFNC. Evaluated in ED to have acute hypoxic respiratory failure due to RSV requiring 2L NC, Decadron, nebulizer. Discussed with Dr. Mcgraw for admission to [facility] for continued oxygen therapy and pulmonary optimzation. This is a 37 year old female with PMH of opiate use, asthma, distant (2 yr ago) admission for respiratory failure due to influenza requiring high flow oxygen admitted overnight for similar. This time testing was positive for RSV. She had been short of breath for the past couple of days with rhinorrhea, headaches, nausea, mildly productive cough, and pleuritic chest pain. She is improving a bit this morning, still quite dyspnic with minimal exertion and requiring heated high flow. Discharge Providers Provider Date of admission: 05/23/23 02:21 Discharge Date: 05/29/23 Discharge provider: Naif Finney DO Summary Hospital Course Discharge Diagnosis: 1. Sepsis ruled out - patient's only organ failure at this time due to respiratory failure. Not likely sepsis, but rather asthma exacerbation due to RSV. - UA contaminated - continue management noted below. 2. Acute hypoxemic respiratory failure secondary to asthma exacerbation due to RSV infection. - Continue to wean O2 as tolerated, goal O2 90-96% while on supplemental therapy. Remains on heated high flow. - appreciate respiratory therapy, discussed care with them today to formulate plan. - gave 20 mg albuterol inhalation on HD#1, with some improvement after treatment. Continue albuterol nebs q4 with additional therapy as needed q2 hr - continue solumedrol 40 mg IV BID, transition to oral prednisone 40 mg daily once improved. - procalcitonin negative, do not believe to have superimposed bacterial component at this time, though monitor closely. - able to wean off O2 3. Elevated transaminase level: AST 301, ALT 161 on admission, improving daily. EtOH was denied by pt. Continue to follow for now with labs, but at this time further evaluation as an outpatient is appropriate. downtrended to 56 AST and 90 ALT, likely viral induced 4. Methadone dependence - continue patient's 260 mg dosing daily, confirmed dosing. Hospital Course: Admitted for RSV causing asthma exacerbation. Was requiring HFNC initially then slowly weaned to 3L and then to room air with IV steroids, duonebs. Discharged on prednisone taper to wean off steroids. Exam Vital Signs (past 8 hours): - 05/29/23 04:00 05/29/23 04:00 05/29/23 07:43 Temperature 98.0 F Pulse Rate 74 Respiratory Rate 16 Blood Pressure 126/80 Pulse Oximetry 94 94 Oxygen Delivery Method Room Air Room Air Oxygen Flow Rate 0 0 05/29/23 07:43 05/29/23 08:00 Temperature 98.0 F Pulse Rate 77 Respiratory Rate 16 Blood Pressure 114/74 Pulse Oximetry 94 93 Oxygen Delivery Method Room Air Oxygen Flow Rate 0 Fraction of Inspired Oxygen 28 SaO2/FiO2 Ratio 339 Oxygen Delivery Method Room Air Oxygen Flow Rate 0 Narrative Exam Narrative: Gen: alert, NAD Lungs: able to speak short sentences, bilateral wheezing much improving CV: regular ext: no edema Objective Labs 05/25/23 05:55 05/25/23 05:55 PFSH Medical History Methadone dependence Asthma Social History household members: spouse, family and children Smoking Status: Former smoker alcohol intake: never Discharge Plan Discharge Plan Patient Disposition: Home Provider Discharge Comment: You were admitted with RSV which caused an asthma exacerbation. This improved with steroids. You will now finish a steroid taper at home. You weren't requiring oxygen when RT tested you so you won't need it at home. Dr. Finney Discharge orders & Medications Prescriptions: New prednisone 20 mg tablet See Rx Instructions .ROUTE .COMPLEX Qty: 12 0RF Rx Instructions: 60 mg (3 pills) daily for 2 days, then 40 mg (2 pills) daily for 2 days, then 20mg (1 pill) daily for 2 days then stop Continued acetaminophen 650 mg Tablet 650 mg PO Q4H PRN (Reason: Mild Pain (Scale Score 1-4)) methadone 5 mg Tablet 260 mg PO DAILY Patient Comments: Edited dose per pt. & spouse. Dispense form liquid, per pt. & spouse, from clinic daily. RN unable to edit Strength & Dispense Form above. Visit Report/Discharge Packet Instructions: Respiratory Syncytial Virus, DI for Respiratory Syncytial Virus -- Adults Stand Alone Forms: Patient Portal/API, Stroke Signs & Symptoms
--- NOTE | 2023-05-29 09:46 | PC.NURSE ---
Day shift: Paperwork signed and all questions answered. Getting a RT treatment just prior to discharge. Has all personal belongings. Has been seen by Dr Finney. scripts sent to Pt's pharmacy electronic. Encouraged to follow script instructions. Also encouraged to continue use of I.S.. LEft unit at approx 1000. Her S.O. is driving her home. They will stop at clinic for Methadone dose (Per Pt's statement).
[2023-05-29 09:47] VITALS: PULSE 92; RESP 18; O2SAT 94
[2023-05-29] MEDS: ALBUTEROL 2.5 MG/3 ML NEB (ADULT) INH (09:47)
== END 2023-05-29 09:58 | disposition home or self-care (01) | DRG 202 ==
LOC: ED 23:03 → AC 05-23 02:22
PROVIDERS: Internal Medicine; Admitting Provider Internal Medicine; Emergency Provider Emergency Medicine; Referring Provider Emergency Medicine; Visit Provider Internal Medicine
DX: J21.0 Acute bronchiolitis due to respiratory syncytial virus (principal); J96.01 Acute respiratory failure with hypoxia; J45.901 Unspecified asthma with (acute) exacerbation; F11.20 Opioid dependence, uncomplicated; R74.01 Elevation of levels of liver transaminase levels; Z87.891 Personal history of nicotine dependence
CPT/HCPCS: 0241U; 36415; 71046; 80053; 81001; 81025; 83605; 83690; 84145; 85025; 85610; 85651; 85730; 86140; 87040; 93005; 94150; 94640; 94760; 94762; 96374; 99285; J0136; J1100; J1650; J2405; J2919; J7613

== ENCOUNTER 2023-06-04 10:26 | Emergency (ER) | payer MEDICAID, SELFPAY ==
[2023-05-23 02:33] VITALS: BMI 35.5
[2023-06-04] VITALS (7 sets, daily range): BP systolic 135; BP diastolic 65–75; PULSE 68–81; RESP 18; TEMP 36.6; O2SAT 96–99; BMI 29.2
--- NOTE | 2023-06-04 10:48 | DI.CT.S_ITS ---
PROCEDURE: CT ABDOMEN PELVIS W CON INDICATIONS: LLQ ABD PAIN TECHNIQUE: After the administration of intravenous contrast, axial sections acquired from the lung bases to the pubic symphysis. Coronal and sagittal reformats were performed. For radiation dose reduction, the following was used: automated exposure control, adjustment of mA and/or kV according to patient size. COMPARISON: None. FINDINGS: Image quality: Diagnostic. Lower Chest: No significant findings. ABDOMEN: Liver: No solid mass. Gallbladder: No radiopaque gallstones or wall thickening. Biliary ducts: No biliary dilation. Pancreas: No ductal dilation. Spleen: Size is within normal limits. Adrenal Glands: No adrenal nodules. Kidneys and Ureters: No hydronephrosis. No solid mass. No complex renal cystic lesion which requires follow up. Stomach and Bowel: Normal colonic caliber, without significant wall thickening. Normal appendix. Peritoneum: No abnormal intraperitoneal fluid. No free air. Ventral Wall: No hernia. Abdominal Nodes: No retroperitoneal or mesenteric adenopathy by size criteria. Vessels: Aorta and inferior vena cava are normal in size. PELVIS: Pelvic Organs: Unremarkable. Bladder: Unremarkable. Pelvic Nodes: No enlarged lymph nodes. Miscellaneous: No inguinal hernias are seen. Bones: No aggressive osseous abnormality. IMPRESSION: 1. No acute process. 2. Normal appendix. Dictated by: Vivian Otoole M.D. on 06/04/2023 at 11:45 Approved by: Vivian Otoole M.D. on 06/04/2023 at 11:50
--- NOTE | 2023-06-04 10:48 | DI.US.S_ITS ---
PROCEDURE: US PERIPH VENOUS LOW EXTREM BI INDICATIONS: BILAT SWELLING, RECENT HOSPITALIZATION TECHNIQUE: Real-time imaging, as well as color and pulse Doppler interrogation, were performed of the deep veins of both legs from the inguinal ligament to the popliteal fossa, with documentation of the visualized calf veins. COMPARISON: None. FINDINGS: Right: The common femoral, femoral, popliteal, and the visualized calf veins are normally compressible, and free of intraluminal thrombus. Color and pulse Doppler demonstrate normal phasic intravascular flow. There is normal augmentation response to distal compression maneuver. Left: The common femoral, femoral, popliteal, and the visualized calf veins are normally compressible, and free of intraluminal thrombus. Color and pulse Doppler demonstrate normal phasic intravascular flow. There is normal augmentation response to distal compression maneuver. IMPRESSION: No findings of deep venous thrombosis in either lower extremity. Dictated by: Vivian Otoole M.D. on 06/04/2023 at 11:44 Approved by: Vivian Otoole M.D. on 06/04/2023 at 11:44
--- NOTE | 2023-06-04 10:50 | ED_ITS ---
HPI - General Adult General Chief complaint: Abdominal Pain Stated complaint: poss hernia stomach pain swelling Time Seen by Provider: 06/04/23 10:27 History of Present Illness HPI narrative: 37-year-old female presents for left lower quadrant abdominal pain. Patient recently discharged from the hospital after being admitted for RSV related asthma exacerbation. Patient states that she has been coughing very hard and every time that she coughs she feels a ripping pain in her left abdomen. She is concerned that she may have a hernia from all the coughing. Patient also reports 2 days of bilateral lower extremity swelling, which is atypical for her. Denies history of blood clots Related Data Home Medications Medication Instructions Recorded Confirmed acetaminophen 650 mg tablet 650 mg PO Q4H PRN Mild Pain (Scale 04/17/22 05/23/23 Score 1-4) methadone 5 mg tablet 260 mg PO DAILY 04/17/22 05/23/23 Previous Rx's Medication Instructions Recorded prednisone 20 mg tablet See Rx Instructions .Route 05/29/23 .COMPLEX #12 tabs Allergies Allergy/AdvReac Type Severity Reaction Status Date / Time No Known Drug Allergies Allergy Verified 06/04/23 11:02 Review of Systems Review of Systems Narrative: Negative except as noted above Patient History Medical History Methadone dependence Asthma Social History household members: spouse, family and children Smoking Status: Former smoker alcohol intake: never Smoking Status: Former smoker Substance Use Type: does not use Exam Initial Vital Signs Initial Vital Signs: Vital Signs Temperature 98 F 06/04/23 10:30 Pulse Rate 68 06/04/23 10:30 Respiratory Rate 18 06/04/23 10:30 Blood Pressure 135/65 06/04/23 10:30 Pulse Oximetry 98 06/04/23 10:30 Oxygen Delivery Method Room Air 06/04/23 10:30 Const: Awake, alert, no acute distress, nontoxic appearing, obese Cardiac: regular rate, regular rhythm RESP: unlabored, clear bilaterally, no wheezing GI: Atraumatic, soft, left lower quadrant tenderness to deep palpation, no rebound or guarding, no masses MSK: Atraumatic, full range of motion, pulses equal, trace pitting edema to knees bilaterally Skin: Warm, Dry, intact, no rashes Neuro: AO x3, CN II-XII grossly intact, moves all extremities Psych: affect normal, mood normal, not suicidal, not homicidal Course Orders Ordered: ED Orders 06/04/23 10:45 CBC Auto Diff [Complete Blood Count AUTO DIFF] Stat CMP [Comprehensive Metabolic Panel] Stat 06/04/23 10:48 CT abdomen pelvis w con Stat US periph venous low extrem bi Stat 06/04/23 11:01 UA Complete [Urinalysis and Microscopic] Stat Urine Culture Stat Discontinued Medications Ketorolac Tromethamine (Ketorolac 30 Mg/Ml Vial) 15 mg IV NOW ONE Stop: 06/04/23 10:49 Last Admin: 06/04/23 11:22 Dose: 15 mg Documented By: SUSAN Vital Signs Vital signs: Vital Signs - 8 hr 06/04/23 10:30 06/04/23 10:33 06/04/23 10:34 Temperature 98 F Pulse Rate 68 73 73 Respiratory Rate 18 Blood Pressure 135/65 Pulse Oximetry 98 99 97 Oxygen Delivery Method Room Air 06/04/23 10:34 06/04/23 11:01 06/04/23 11:40 Temperature Pulse Rate 81 75 Respiratory Rate Blood Pressure 135/65 Pulse Oximetry 96 97 Oxygen Delivery Method 06/04/23 12:00 06/04/23 12:23 Temperature Pulse Rate 72 Respiratory Rate Blood Pressure 135/75 Pulse Oximetry 97 Oxygen Delivery Method Medical Decision Making Lab Data 06/04/23 10:45 06/04/23 10:45 Labs: Lab Results 06/04/23 06/04/23 Range/Units 10:45 11:01 WBC 17.5 H (4.5-11.0) X10^3/uL RBC 4.28 (4.0-5.2) X10^6/uL Hgb 11.2 L (12.0-16.0) g/dL Hct 35.0 L (36-46) % MCV 82.0 (80-100) fL MCH 26.3 (26-34) PG MCHC 32.0 (30-36) % RDW 15.4 H (11.6-14.8) % Plt Count 354 (150-400) X10^3/uL Neut % (Auto) 54.8 (50-75) % Lymph % (Auto) 37.7 (25-40) % [place] % (Auto) 6.0 (3-14) % Eos % (Auto) 0.5 L (2-4) % Baso % (Auto) 1.0 (0-2) % Neut # (Auto) 9600 H (2497-5725) /uL Lymph # (Auto) 6600 H (3113-7735) /uL [place] # (Auto) 1000 H (0-900) /uL Eos # (Auto) 100 (0-450) /uL Baso # (Auto) 200 H (0-100) /uL Sodium 139 (137-145) mmol/L Potassium 3.8 (3.4-5.1) mmol/L Chloride 99 (98-107) mmol/L Carbon Dioxide 33 H (22-32) mmol/L BUN 18 H (7-17) mg/dL Creatinine 0.66 (0.52-1.04) mg/dL Estimated GFR > 60 (>60) mL/min BUN/Creatinine Ratio 27.3 H (6-22) Glucose 64 L (70-100) mg/dL Calcium 8.8 (8.4-10.2) mg/dL Total Bilirubin 0.4 (0.2-1.3) mg/dL AST 22 (14-36) IU/L ALT 33 (<35) IU/L Alkaline Phosphatase 82 (38-126) U/L Total Protein 6.8 (6.3-8.2) g/dL Albumin 3.4 L (3.5-5.0) g/dL Globulin 3.4 (1.7-4.1) g/dL Albumin/Globulin Ratio 1.0 (1.0-2.8) Urine Color Yellow Urine Appearance Clear Urine pH 7.0 (4.5-8.0) Ur Specific [place] 1.015 (1.000-1.035) Urine Protein Negative (Negative) Urine Glucose (UA) Negative (Negative) g/dL Urine Ketones Negative (NEGATIVE) Urine Occult Blood 2+ H (Negative) Urine Nitrate Negative (Negative) Urine Bilirubin Negative (NEGATIVE) Urine Urobilinogen 1.0 (0.2) E.U./dL Ur Leukocyte Esterase 1+ H (NEGATIVE) Urine RBC 0-1/hpf (0-5/HPF) Urine WBC 1-5/hpf (0-5/HPF) Ur Squamous Epith Cells None seen (0-5/HPF) Amorphous Sediment 1+ Urine Bacteria Moderate (10-30) H (None) Ur Culture Indicated? Specimen cultured Point of Care Testing Test Results Negative Urine Dip Bedside Urine Glucose Negative Bedside Urine Bilirubin - Negative Bedside Urine Ketone - Negative Urine Specific [place] 1.015 Bedside Urine Occult Blood ++ Bedside Urine pH 6.5 Bedside Urine Protein - Negative Bedside Urine Urobilinogen - Negative Bedside Urine Nitrite - Negative Bedside Urine Leukocytes + 70 Esterase Point of care testing: Point of Care Testing Test Results Negative Urine Dip Bedside Urine Glucose Negative Bedside Urine Bilirubin - Negative Bedside Urine Ketone - Negative Urine Specific [place] 1.015 Bedside Urine Occult Blood ++ Bedside Urine pH 6.5 Bedside Urine Protein - Negative Bedside Urine Urobilinogen - Negative Bedside Urine Nitrite - Negative Bedside Urine Leukocytes + 70 Esterase MDM Narrative Medical decision making narrative: Well-appearing patient with left-sided abdominal pain after upper respiratory infection. Abdomen is soft but she does have reproducible tenderness in the left lower quadrant. Patient also with bilateral lower extremity swelling with recent hospitalization. We will order ultrasound imaging of the legs and CT imaging of the abdomen and pelvis. Laboratory work is reviewed, unremarkable. CT imaging negative for acute findings, no evidence of hernia or infection. Ultrasound negative for DVT bilaterally. Swelling is likely from dependent edema, abdominal pain possibly strain from coughing for multiple days in a row. Patient advised of lab and imaging findings, recommended Tylenol and Motrin as needed for symptoms and follow up with PCP. ED return precautions discussed at bedside. Patient expressed understanding of the plan and is in agreement at this time. All questions answered at the time of discharge. Discharge Plan Departure Patient Disposition: Home Clinical Impression: Abdominal wall strain Qualifiers: Encounter type: initial encounter Qualified Code(s): S39.011A - Strain of muscle, fascia and tendon of abdomen, initial encounter Instructions: DI for Abdominal Muscle Strain Prescriptions: No Action acetaminophen 650 mg Tablet 650 mg PO Q4H PRN (Reason: Mild Pain (Scale Score 1-4)) methadone 5 mg Tablet 260 mg PO DAILY Patient Comments: Edited dose per pt. & spouse. Dispense form liquid, per pt. & spouse, from clinic daily. RN unable to edit Strength & Dispense Form above. prednisone 20 mg tablet See Rx Instructions .ROUTE .COMPLEX Qty: 12 0RF Rx Instructions: 60 mg (3 pills) daily for 2 days, then 40 mg (2 pills) daily for 2 days, then 20mg (1 pill) daily for 2 days then stop Stand Alone Forms: Patient Portal/API
[2023-06-04 11:01] LABS: Add Manual Diff / Slide Review NO; Basophils Absolute Auto 200 /uL (0-100); Eosinophils Absolute Auto 100 /uL (0-450); Eosinophils Percent Auto 0.5 % (2-4); Hemoglobin 11.2 g/dL (12.0-16.0); Lymphocytes Absolute Auto 6600 /uL (1100-4500); Lymphocytes Percent Auto 37.7 % (25-40); Mean Corpuscular Hemoglobin 26.3 PG (26-34); Monocytes Absolute Auto 1000 /uL (0-900); Neutrophils Absolute Auto 9600 /uL (1500-7000); Neutrophils Percent Auto 54.8 % (50-75); Platelet Count 354 X10^3/uL (150-400); Red Blood Cell Count 4.28 X10^6/uL (4.0-5.2); Red Cell Distribution Width 15.4 % (11.6-14.8); White Blood Cell Count 17.5 X10^3/uL (4.5-11.0)
[2023-06-04 11:08] LABS: Alanine Aminotransferase 33 IU/L (<35); Albumin 3.4 g/dL (3.5-5.0); Alkaline Phosphatase 82 U/L (38-126); Aspartate Aminotransferase 22 IU/L (14-36); BUN Creatinine Ratio 27.3 (6-22); Bilirubin Total 0.4 mg/dL (0.2-1.3); Blood Urea Nitrogen 18 mg/dL (7-17); Calcium 8.8 mg/dL (8.4-10.2); Carbon Dioxide 33 mmol/L (22-32); Chloride 99 mmol/L (98-107); Estimated Glomerular Filt Rate > 60 mL/min (>60); Globulin 3.4 g/dL (1.7-4.1); Glucose 64 mg/dL (70-100); HEMOLYSIS < 15 (0-50); Potassium 3.8 mmol/L (3.4-5.1); Sodium 139 mmol/L (137-145); Total Protein 6.8 g/dL (6.3-8.2)
[2023-06-04 11:09] LABS: Appearance Urine UA CLEAR; Bilirubin Urine UA NEGATIVE (NEGATIVE); Color Urine UA YELLOW; Glucose Urine UA NEGATIVE (Negative); Ketones Urine UA NEGATIVE (NEGATIVE); Leukocyte Esterase Urine UA 1+ (NEGATIVE); Nitrite Urine UA NEGATIVE (Negative); Occult Blood Urine UA 2+ (Negative); Protein Urine UA NEGATIVE (Negative); Specific Gravity Urine UA 1.015 (1.000-1.035)
[2023-06-04] MEDS: KETOROLAC 30 MG/ML VIAL 15 MG IV (11:22)
[2023-06-04 11:45] LABS: Amorphous Sediment Urine 1+; Bacteria Urine Moderate (10-30); Culture Indicated Urine Specimen Cultured; RBC Urine 0-1/HPF (0-5/HPF); Squamous Epithelial Cell Urine None Seen (0-5/HPF); WBC Urine 1-5/HPF (0-5/HPF)
== END 2023-06-04 12:24 | disposition home or self-care (01) ==
PROVIDERS: Emergency Provider Emergency Medicine
DX: S39.011A Strain of muscle, fascia and tendon of abdomen, initial encounter (principal); R22.43 Localized swelling, mass and lump, lower limb, bilateral
CPT/HCPCS: 36415; 74177; 80053; 81001; 81003; 81025; 85025; 87086; 93970; 96374; 99284; J1885; Q9967

== ENCOUNTER 2023-11-07 22:07 | Emergency (ER) | payer MEDICAID, SELFPAY ==
[2023-05-23 02:33] VITALS: BMI 35.5
[2023-11-07 22:15] VITALS: BP 158/70; PULSE 80; RESP 22; TEMP 36.8; O2SAT 99; BMI 39.0
--- NOTE | 2023-11-07 22:15 | EKG_ITS ---
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
[2023-11-07] MEDS: ALBUTEROL/IPRATROPIUM 3 ML AMPUL INH (22:25)
[2023-11-07 22:30] VITALS: BP 137/65; PULSE 78; RESP 16; O2SAT 96
[2023-11-07 23:00] VITALS: BP 126/70; PULSE 85; RESP 21; O2SAT 93
[2023-11-07 23:30] VITALS: BP 128/54; PULSE 78; RESP 24; O2SAT 95
[2023-11-08] VITALS: BP 113/63; PULSE 74; RESP 16; O2SAT 95
[2023-11-08 00:30] VITALS: BP 126/70; PULSE 76; RESP 22; O2SAT 96
[2023-11-08 01:00] VITALS: BP 129/59; PULSE 74; RESP 23; O2SAT 94
[2023-11-08 01:25] VITALS: PULSE 72; RESP 20; O2SAT 94
[2023-11-08 01:30] VITALS: PULSE 73; RESP 16; O2SAT 94
--- NOTE | 2023-11-08 01:31 | DI.RAD.S_ITS ---
PROCEDURE: XR CHEST 1V INDICATIONS: chest pain TECHNIQUE: One view of the chest was acquired. COMPARISON: [facility], CR, XR CHEST 2V, 05/22/2023, 22:58. FINDINGS: Surgical changes and devices: None. Lungs and pleura: Lungs are clear. No pleural effusions or pneumothorax. Mediastinum: Mediastinal contours appear normal. Heart size is normal. Bones and chest wall: No suspicious bony lesions. Overlying soft tissues appear unremarkable. IMPRESSION: Stable radiographic evaluation of the chest without acute cardiopulmonary abnormalities or focal airspace disease. Dictated by: Flo Lei M.D. on 11/08/2023 at 1:52 Approved by: Flo Lei M.D. on 11/08/2023 at 1:53
--- NOTE | 2023-11-08 01:44 | ED.CHESTPAIN ---
HPI - Chest Pain General Chief Complaint: Chest Pain Stated Complaint: c/p Time Seen by Provider: 11/08/23 01:12 Source: patient, EMS, RN notes reviewed and old records reviewed Mode of arrival: EMS Limitations: no limitations History of Present Illness HPI narrative: 38-year-old smoker, history of asthma on methadone and gabapentin as well as albuterol inhaler who presents with complaint of chest discomfort and difficulty with breathing. Patient states she is sort of left substernal does not radiate. Patient states it is improved after receiving breathing treatment here in the department. She denies fevers, body aches chills. She has felt a little short of breath. She does use her inhaler sometimes 1 or 2 times a day but not every day. She states she did not require any earlier today. Started developed discomfort in her chest. [place] short of breath. Denies any syncope. She has had a productive cough with green sputum. She denies any nausea or vomiting. No diarrhea constipation. She notes little bit of swelling in her lower extremities but just today. Patient states no other symptoms. He is currently on methadone, gabapentin has albuterol inhaler. She does not have a steroid inhaler. States she did not use it earlier today. Patient denies any drug allergies. Denies any prior surgeries. Has been decreasing her tobacco use and using 2-3 cigarettes daily, denies any regular alcohol or recreational drugs. Her primary care is through [facility] Related Data Home Medications Medication Instructions Recorded Confirmed acetaminophen 650 mg tablet 650 mg PO Q4H PRN Mild Pain (Scale 04/17/22 05/23/23 Score 1-4) methadone 5 mg tablet 260 mg PO DAILY 04/17/22 05/23/23 Previous Rx's Medication Instructions Recorded prednisone 20 mg tablet See Rx Instructions .Route 05/29/23 .COMPLEX #12 tabs prednisone 10 mg tablets in a dose See Rx Instructions PO .COMPLEX 11/08/23 pack #21 ea Allergies Allergy/AdvReac Type Severity Reaction Status Date / Time No Known Drug Allergies Allergy Verified 06/04/23 11:02 Review of Systems Review of Systems ROS Unobtainable: All systems reviewed & are unremarkable except as noted in HPI and below Patient History Medical History Methadone dependence Asthma Social History household members: spouse, family and children Smoking Status: Former smoker alcohol intake: never Smoking Status: Former smoker alcohol intake frequency: other Substance Use Type: does not use Exam Narrative Exam Narrative: GENERAL: Alert and oriented x three, female was sleeping initially, awakens early easily on answer questions. HEENT: Head normocephalic, atraumatic, EOMI, pupils reactive, no nasal congestion, face symmetric, moist mucous membranes NECK: Supple, full range of motion CARDIOVASCULAR: Regular rate and rhythm without murmurs, rubs or gallops. No edema bilateral lower extremities. RESPIRATORY: Breath sounds equal bilaterally, no wheezes, no rales, occasional rhonchi. Patient has a wet cough. ABDOMEN: Soft, nontender. Normoactive bowel sounds all 4 quadrants. No guarding or rebound, rigidity, no mass : No CVA tenderness EXTREMITIES: Normal range of motion, no clubbing or edema. Neurovascularly intact NEUROLOGICAL: Cranial nerves II through XII grossly intact. Moving all extremities SKIN: Warm, dry, no petechiae, no rashes or lesions. Initial Vital Signs Initial Vital Signs: Vital Signs Temperature 98.3 F 11/07/23 22:15 Pulse Rate 80 11/07/23 22:15 Respiratory Rate 22 11/07/23 22:15 Blood Pressure 158/70 H 11/07/23 22:15 Pulse Oximetry 99 11/07/23 22:15 Oxygen Delivery Method Room Air 11/07/23 22:15 Course Orders Ordered: ED Orders 11/08/23 01:31 XR chest 1V Stat EKG-12 Lead Stat 11/08/23 01:58 Complete Blood Count AUTO DIFF Stat Comprehensive Metabolic Panel Stat D Dimer Stat Lipase Stat Magnesium Stat PTT Partial Thromboplastin [place] Stat Prothrombin Time INR Stat Troponin & CK Cardiac Panel Stat Discontinued Medications Albuterol/Ipratropium (Albuterol/Ipratropium 3 Ml Ampul) 3 ml INH NOW ONE Stop: 11/07/23 22:21 Last Admin: 11/07/23 22:25 Dose: 3 ml Documented By: Aspirin (Aspirin 81 Mg Chew Tab) 324 mg PO NOW ONE Stop: 11/08/23 01:32 Last Admin: 11/08/23 01:33 Dose: Not Given Documented By: NAHUM Ketorolac Tromethamine (Ketorolac 30 Mg/Ml Vial) 15 mg IV NOW ONE Stop: 11/08/23 02:00 Last Admin: 11/08/23 02:07 Dose: 15 mg Documented By: AB Methylprednisolone (Methylprednisolone 125 Mg/2 Ml Vial) 125 mg IV NOW ONE Stop: 11/08/23 02:00 Last Admin: 11/08/23 02:07 Dose: 125 mg Documented By: AB Vital Signs Vital signs: Vital Signs - 8 hr 11/07/23 22:30 11/07/23 23:00 11/07/23 23:30 Pulse Rate 78 85 78 Respiratory Rate 16 21 24 Blood Pressure 137/65 126/70 128/54 L Pulse Oximetry 96 93 95 11/08/23 00:00 11/08/23 00:30 11/08/23 01:00 Pulse Rate 74 76 74 Respiratory Rate 16 22 23 Blood Pressure 113/63 126/70 129/59 L Pulse Oximetry 95 96 94 11/08/23 01:25 11/08/23 01:30 11/08/23 02:00 Pulse Rate 72 73 75 Respiratory Rate 20 16 28 H Blood Pressure Pulse Oximetry 94 94 96 MDM - Chest Pain Lab Data 11/08/23 01:58 11/08/23 01:58 Labs: Lab Results 11/08/23 Range/Units 01:58 WBC 7.8 (4.5-11.0) X10^3/uL RBC 4.73 (4.0-5.2) X10^6/uL Hgb 12.1 (12.0-16.0) g/dL Hct 36.4 (36-46) % MCV 77.0 L (80-100) fL MCH 25.6 L (26-34) PG MCHC 33.2 (30-36) % RDW 15.7 H (11.6-14.8) % Plt Count 362 (150-400) X10^3/uL Neut % (Auto) 44.3 L (50-75) % Lymph % (Auto) 39.5 (25-40) % [place] % (Auto) 8.4 (3-14) % Eos % (Auto) 6.8 H (2-4) % Baso % (Auto) 1.0 (0-2) % Neut # (Auto) 3500 (3927-9292) /uL Lymph # (Auto) 3100 (0192-1007) /uL [place] # (Auto) 700 (0-900) /uL Eos # (Auto) 500 H (0-450) /uL Baso # (Auto) 100 (0-100) /uL PT 11.0 (9.4-12.5) SECONDS INR 1.0 (0.9-1.3) APTT 34 (25.1-36.5) SECONDS D-Dimer 441 (<500) ng/ml Sodium 138 (137-145) mmol/L Potassium 3.7 (3.4-5.1) mmol/L Chloride 105 (98-107) mmol/L Carbon Dioxide 30 (22-32) mmol/L BUN 19 H (7-17) mg/dL Creatinine 0.88 (0.52-1.04) mg/dL Estimated GFR > 60 (>60) mL/min BUN/Creatinine Ratio 21.6 (6-22) Glucose 102 H (70-100) mg/dL Calcium 9.0 (8.4-10.2) mg/dL Magnesium 2.0 (1.6-2.3) mg/dL Total Bilirubin 0.3 (0.2-1.3) mg/dL AST 29 (14-36) IU/L ALT 27 (<35) IU/L Alkaline Phosphatase 112 (38-126) U/L Total Creatine Kinase 224 H (30-135) U/L Troponin I < 0.012 (0.01-0.034) ng/mL Total Protein 8.2 (6.3-8.2) g/dL Albumin 4.1 (3.5-5.0) g/dL Globulin 4.1 (1.7-4.1) g/dL Albumin/Globulin Ratio 1.0 (1.0-2.8) Lipase 71 (23-300) U/L Imaging Data Chest x-ray: Radiologist's Impression: Donnie Ojeda??38??F??1985 ? Allergy/Adv: No Known Drug Allergies (More??) Close Chest X-Ray (Signed) Flo Lei - 11/08/23 Vascular Ultrasound (Signed) Vivian Otoole - 06/04/23 Abdomen/Pelvis CT (Signed) Vivian Otoole - 06/04/23 Chest X-Ray (Signed) [place] - 05/22/23 Telemetry Strips 04/17/22 Chest X-Ray (Signed) Nancy Kumar - 04/17/22 Launch?Image [address] [address] XRay Report Signed Patient: Donnie Ojeda MR#: [id number] : 1985 Acct:[id number] Age/Sex: 38 / F Date of Service: 11/08/23 Loc: ED Accession Number: [id number] Procedure: XR chest 1V Ordering Provider: Kacy Salazar D.O. PROCEDURE: XR CHEST 1V INDICATIONS: chest pain TECHNIQUE: One view of the chest was acquired. COMPARISON: [facility], , XR CHEST 2V, 05/22/2023, 22:58. FINDINGS: Surgical changes and devices: None. Lungs and pleura: Lungs are clear. No pleural effusions or pneumothorax. Mediastinum: Mediastinal contours appear normal. Heart size is normal. Bones and chest wall: No suspicious bony lesions. Overlying soft tissues appear unremarkable. IMPRESSION: Stable radiographic evaluation of the chest without acute cardiopulmonary abnormalities or focal airspace disease. Dictated by: Flo Lei M.D. on 11/08/2023 at 1:52 Approved by: Flo Lei M.D. on 11/08/2023 at 1:53 ECG Data Attestation: I personally reviewed and interpreted this ECG as follows: Prior ECG tracings: available for review Interpretation: Sinus rhythm rate of 78 [place] 172 QRS 80 QTC of 376. No acute ST elevation or depression noted. Patient has prior from 05/23/2023 with no acute changes. MDM Narrative Medical decision making narrative: 38-year-old male history of asthma has had prior hospitalization when she was sick with influenza. Patient is afebrile, complaints of chest pain shortness of breath had a DuoNeb which she states improved her pain. Patient is clear at this time. Does some mild rhonchi but no wheezes. No accessory muscle use. Patient states she does not feel like she needs a repeat neb. her just discomfort labs, EKG and chest x-ray were obtained. Labs white count of 7.8 hemoglobin is 12, platelets are 362. INR is 1, D-dimer is 441. Electrolytes are appropriate CO2 is 30, BUN 19, creatinine 0.88, glucose is 102, total CK was 224 troponin was less than 0.012. Chest x-ray negative for acute change EKG shows sinus rhythm no acute changes Recheck patient had improved after DuoNeb. Suspicion for cardiac source as much lower. Dimer is negative with no other reported risk factors patient, she has not on estrogen long distance travel known embolism history in the family. Patient feels improved felt appropriate for discharge home. Believe short course of prednisone to see if this is helpful as well. Patient feels much better. States she would like to return home. States she does have a spacer that she can use. She states she is plenty of albuterol. Normally uses [place] [facility] so asked printed as they are not open this weekend she will drop it off at different pharmacy today. Discharge Plan Departure Patient Disposition: Home Clinical Impression: Asthma exacerbation Activity Restrictions/Additional Instructions: Follow up for recheck in the next 24-48 hours if you are not feeling significantly improved. Take steroids daily until gone. Prescription was printed. Take your next dose of steroid today (Friday), take until gone. Continue to use your albuterol, 2-4 puffs every 4 hours as needed. Use your spacer with your albuterol. Please return for fevers, new or worsening chest pain or shortness of breath, lightheadedness or passing out, new swelling of your extremities or other new or concerning changes. Prescriptions: New prednisone 10 mg tablets,dose pack See Rx Instructions .ROUTE .COMPLEX Qty: 21 0RF Rx Instructions: 6 tabs p.o. x1 day, then 5 tabs p.o. x1 day, then 4 tablets p.o. x1 day, then 3 tabs p.o. x1 day, then 2 tabs p.o. x1 day, then 1 tab p.o. x1 day No Action acetaminophen 650 mg Tablet 650 mg PO Q4H PRN (Reason: Mild Pain (Scale Score 1-4)) methadone 5 mg Tablet 260 mg PO DAILY Patient Comments: Edited dose per pt. & spouse. Dispense form liquid, per pt. & spouse, from clinic daily. RN unable to edit Strength & Dispense Form above. prednisone 20 mg tablet See Rx Instructions .ROUTE .COMPLEX Qty: 12 0RF Rx Instructions: 60 mg (3 pills) daily for 2 days, then 40 mg (2 pills) daily for 2 days, then 20mg (1 pill) daily for 2 days then stop Stand Alone Forms: Patient Portal/API
[2023-11-08 02:00] VITALS: PULSE 75; RESP 28; O2SAT 96
[2023-11-08] MEDS: KETOROLAC 30 MG/ML VIAL 15 MG IV (02:07)
[2023-11-08] MEDS: methylPREDNISolone 125 MG/2 ML VIAL IV (02:07)
[2023-11-08 02:09] LABS: Add Manual Diff / Slide Review NO; Basophils Absolute Auto 100 /uL (0-100); Eosinophils Absolute Auto 500 /uL (0-450); Eosinophils Percent Auto 6.8 % (2-4); Hematocrit 36.4 % (36-46); Hemoglobin 12.1 g/dL (12.0-16.0); Lymphocytes Absolute Auto 3100 /uL (1100-4500); Lymphocytes Percent Auto 39.5 % (25-40); Mean Corpuscular HGB Conc 33.2 % (30-36); Mean Corpuscular Hemoglobin 25.6 PG (26-34); Monocytes Absolute Auto 700 /uL (0-900); Monocytes Percent Auto 8.4 % (3-14); Neutrophils Absolute Auto 3500 /uL (1500-7000); Neutrophils Percent Auto 44.3 % (50-75); Platelet Count 362 X10^3/uL (150-400); Red Blood Cell Count 4.73 X10^6/uL (4.0-5.2); Red Cell Distribution Width 15.7 % (11.6-14.8); White Blood Cell Count 7.8 X10^3/uL (4.5-11.0)
[2023-11-08 02:20] LABS: PTT Partial Thromboplastin Tim 34 SECONDS (25.1-36.5)
[2023-11-08 02:22] LABS: Alanine Aminotransferase 27 IU/L (<35); Albumin 4.1 g/dL (3.5-5.0); Alkaline Phosphatase 112 U/L (38-126); Aspartate Aminotransferase 29 IU/L (14-36); BUN Creatinine Ratio 21.6 (6-22); Bilirubin Total 0.3 mg/dL (0.2-1.3); Blood Urea Nitrogen 19 mg/dL (7-17); Carbon Dioxide 30 mmol/L (22-32); Chloride 105 mmol/L (98-107); Creatine Kinase 224 U/L (30-135); Estimated Glomerular Filt Rate > 60 mL/min (>60); Globulin 4.1 g/dL (1.7-4.1); Glucose 102 mg/dL (70-100); HEMOLYSIS < 15 (0-50); Lipase 71 U/L (23-300); Potassium 3.7 mmol/L (3.4-5.1); Sodium 138 mmol/L (137-145); Total Protein 8.2 g/dL (6.3-8.2)
--- NOTE | 2023-11-08 02:26 | PC.NURSE ---
Pt rounding 2 times prior to this nurse assessment. Pt does not appear to be in distress. However, pt breathing heavy and snoring with a nasal gurgle.
[2023-11-08 02:28] LABS: D Dimer 441 ng/ml (<500)
[2023-11-08 02:33] LABS: Troponin I < 0.012 ng/mL (0.01-0.034)
== END 2023-11-08 03:06 | disposition home or self-care (01) ==
PROVIDERS: Emergency Provider Emergency Medicine
DX: J45.901 Unspecified asthma with (acute) exacerbation (principal); R07.9 Chest pain, unspecified; Z87.891 Personal history of nicotine dependence
CPT/HCPCS: 36415; 71045; 80053; 82550; 83690; 83735; 84484; 85025; 85379; 85610; 85730; 93005; 96374; 96375; 99284; J1885; J2919

== ENCOUNTER 2025-04-09 12:58 | Emergency (ER) | payer MEDICAID, SELFPAY ==
[2023-05-23 02:33] VITALS: BMI 35.5
[2025-04-09] VITALS (13 sets, daily range): BP systolic 120–158; BP diastolic 58–79; PULSE 68–79; RESP 20–33; TEMP 36.6; O2SAT 93–98; BMI 38.2
--- NOTE | 2025-04-09 13:11 | DI.RAD.S_ITS ---
PROCEDURE: XR CHEST 1V INDICATIONS: Shortness of breath TECHNIQUE: One view of the chest was acquired. COMPARISON: None. FINDINGS: Surgical changes and devices: None. Lungs and pleura: Minimal medial atelectasis and or infiltrate on the right Mediastinum: Mediastinal contours appear normal. Heart size is normal. Bones and chest wall: No suspicious bony lesions. Overlying soft tissues appear unremarkable. IMPRESSION: Minimal atelectasis and or infiltrate noted at the right lung base medially Approved by: Juvenal Magallon M.D. on 04/09/2025 at 14:35
--- NOTE | 2025-04-09 13:11 | EKG_ITS ---
[address] [address] Test Date: 2025-04-09 Pat Name: Donnie Ojeda Department: [facility] Room: Gender: Female Insurance Application Investigator: KIRBY : 1985 Requested By: Order Number: [id number] Reading MD: Clive Burnett Measurements Intervals [place] Rate: 69 P: 1 AL: 178 QRS: 5 QRSD: 80 T: 12 QT: 448 QTc: 480 Interpretive Statements Sinus rhythm with occasional premature ventricular complexes Prolonged QT Electronically Signed On 04-10-2025 7:59:48 PST by Clive Burnett
[2025-04-09] MEDS: ALBUTEROL/IPRATROPIUM 3 ML AMPUL INH ×2 (13:16→15:36)
[2025-04-09 13:56] LABS: Influenza A - CEPHEID Flu A NEGATIVE (NEGATIVE); Influenza B - CEPHEID Flu B NEGATIVE (NEGATIVE)
[2025-04-09 14:02] LABS: COVID-19 CEPHEID 4-PLEX PCR Negative (Negative)
[2025-04-09 14:38] LABS: Add Manual Diff / Slide Review NO; Hematocrit 35.7 % (36-46); Hemoglobin 11.6 g/dL (12.0-16.0); Lymphocytes Absolute Auto 3200 /uL (1100-4500); Mean Corpuscular HGB Conc 32.5 % (30-36); Mean Corpuscular Hemoglobin 25.2 PG (26-34); Mean Corpuscular Volume 77.6 fL (80-100); Platelet Count 293 X10^3/uL (150-400)
[2025-04-09 14:43] LABS: INR 1.1 (0.9-1.3); Prothrombin Time 12.0 SECONDS (9.4-12.5)
[2025-04-09 14:47] LABS: Alanine Aminotransferase 23 IU/L (<35); Albumin 4.3 g/dL (3.5-5.0); Albumin Globulin Ratio 1.0 (1.0-2.8); Alkaline Phosphatase 107 U/L (38-126); Blood Urea Nitrogen 12 mg/dL (7-17); Calcium 8.9 mg/dL (8.4-10.2); Carbon Dioxide 24 mmol/L (22-32); Chloride 106 mmol/L (98-107); Estimated Glomerular Filt Rate > 60 mL/min (>60); Globulin 4.1 g/dL (1.7-4.1); Glucose 81 mg/dL (70-99); HEMOLYSIS < 15 (0-50); Lactate (Lactic Acid) 1.2 mmol/L (0.7-2.1); Potassium 3.6 mmol/L (3.4-5.1); Sodium 141 mmol/L (137-145); Total Protein 8.4 g/dL (6.3-8.2)
[2025-04-09 14:59] LABS: NT-proBNP (BNP-Adult 18+) 60 pg/mL (<125); Troponin I < 0.012 ng/mL (0.01-0.034)
[2025-04-09] MEDS: ALBUTEROL 2.5 MG/3 ML NEB (ADULT) INH (15:05)
--- NOTE | 2025-04-09 15:24 | ED_ITS ---
HPI - SOB/Dyspnea <Ana Yi MD - Last Filed: 04/09/25 17:54> General Chief Complaint: Shortness of Breath/Dyspnea Stated Complaint: Hard time breathing. Time Seen by Provider: 04/09/25 14:59 Source: patient Mode of arrival: Ambulatory Limitations: no limitations History of Present Illness HPI Narrative: 39 years old female with history of asthma came in today complaining of chest tightness, shortness of breath, wheezing, coughing worsening since last night. She started with nasal congestion, runny nose, cough, fever on Friday and was tested negative for COVID, flu at her primary care doctor office then on noticed shortness of breath and got worse last night. She said her fever went away. She denied any vomiting, diarrhea, abdominal pain, urine problem, shortness is being . Her last asthma attack was a year ago. Related Data Home Medications ?Medication ?Instructions ?Recorded ?Confirmed acetaminophen 650 mg tablet 650 mg PO Q4H PRN Mild Kandi n (Scale 04/17/22 05/23/23 Score 1-4) methadone 5 mg tablet 260 mg PO DAILY 04/17/2210/09 Previous Rx's ?Medication ?Instructions ?Recorded prednisone 20 mg tablet See Rx Instructions .Route 0 05/29/23 .COMPLEX #12 tabs prednisone 10 mg tablets in a dose See Rx Instructions PO .COMPLEX 11/08/23 pack #21 ea doxycycline hyclate 100 mg tablet 100 mg PO BID #20 ta bs 04/09/25 prednisone 20 mg tablet 40 mg (2 x 20 mg) PO DAILY 5 days 04/09/25 #10 tabs Allergies Allergy/AdvReac Type Severity Reaction Status Date / Time No Known Drug Allergies Allergy Verified 06/04/23 11:02 Review of Systems <Ana Yi MD - Last Filed: 04/09/25 17:54> Review of Systems Narrative: Positive for runny nose, coughing, wheezing, chest tightness, shortness of breath. Negative for vomiting, diarrhea, sore throat, fever, urine problem. Patient History <Ana Yi MD - Last Filed: 04/09/25 17:54> Medical History Methadone dependence Asthma Social History household members: spouse, family and children Smoking Status: Current every day smoker alcohol intake: never Smoking Status: Current every day smoker tobacco type: cigarettes alcohol intake frequency: other Exam <Ana Yi MD - Last Filed: 04/09/25 17:54> Narrative Exam Narrative: GENERAL: Appear weak. Alert awake. No acute distress. HEAD: Atraumatic. Normocephalic. NECK: Trachea midline. Non tender CARDIOVASCULAR: Regular rate and rhythm without murmurs, gallops, or rubs. RESPIRATORY: Expiratory wheezing in both lungs. No respiratory distress. GASTROINTESTINAL: Abdomen soft, non-tender, nondistended. EXTREMITIES: No edema or joint tenderness. BACK: Nontender without deformity or crepitance. No flank tenderness. NEURO: AOx3. SKIN: No rash or erythema of visible areas Initial Vital Signs Initial Vital Signs: Vital Signs Temperature 97.8 F 04/09/25 13:05 Pulse Rate 74 04/09/25 13:05 Respiratory Rate 26 H 04/09/25 13:05 Blood Pressure 158/72 H 04/09/25 13:05 Pulse Oximetry 98 04/09/25 13:05 Oxygen Delivery Method Room Air 04/09/25 13:05 <Saravanan Saldivar MD - Last Filed: 04/10/25 01:12> Initial Vital Signs Initial Vital Signs: Vital Signs Temperature 97.8 F 04/09/25 13:05 Pulse Rate 74 04/09/25 13:05 Respiratory Rate 26 H 04/09/25 13:05 Blood Pressure 158/72 H 04/09/25 13:05 Pulse Oximetry 98 04/09/25 13:05 Oxygen Delivery Method Room Air 04/09/25 13:05 Course <Ana Yi MD - Last Filed: 04/09/25 17:54> Orders Ordered: ED Orders 04/09/25 16:41 CT angio chest PE protocol Stat 04/09/25 18:34 Blood Culture Stat Discontinued Medications Albuterol (Albuterol 2.5 Mg/3 Ml Neb (Adult)) 2.5 mg INH [id number] PRN PRN Reason: Shortness Of Breath Last Admin: 04/09/25 15:05 Dose: 2.5 mg Documented By: SAT Albuterol (Albuterol Hfa Prepack) 1 box MISC DIRECTED ONE Stop: 04/09/25 19:47 Last Admin: 04/09/25 20:10 Dose: 1 box Documented By: AGNIESZKA Albuterol/Ipratropium (Albuterol/Ipratropium 3 Ml Ampul) 3 ml INH NOW ONE Stop: 04/09/25 13:14 Last Admin: 04/09/25 13:16 Dose: 3 ml Documented By: ELLA Albuterol/Ipratropium (Albuterol/Ipratropium 3 Ml Ampul) 3 ml INH NOW ONE Stop: 04/09/25 15:26 Last Admin: 04/09/25 15:36 Dose: 3 ml Documented By: ILEANA Doxycycline Hyclate (Doxycycline Hyclate 100 Mg Tablet) 100 mg PO NOW ONE Stop: 04/09/25 19:47 Last Admin: 04/09/25 20:10 Dose: 100 mg Documented By: AGNIESZKA Magnesium Sulfate (Magnesium Sulfate) 2 gm in 50 mls @ 150 mls/hr IV NOW ONE Stop: 04/09/25 15:48 Last Infusion: 04/09/25 16:54 Dose: Infused Documented By: AGNIESZKA Co-signed By: JORGE Infusion: 04/09/25 15:52 Dose: 100 mls/hr Documented By: ILEANA Co-signed By: JORGE(2) Admin: 04/09/25 15:36 Dose: 150 mls/hr Documented By: ILEANA Co-signed By: JORGE Ceftriaxone Sodium 1,000 mg/ (Sodium Chloride) 100 mls @ 200 mls/hr IV NOW ONE Stop: 04/09/25 17:54 Last Infusion: 04/09/25 18:56 Dose: Infused Documented By: Admin: 04/09/25 18:14 Dose: 200 mls/hr Documented By: AGNIESZKA Methylprednisolone (Methylprednisolone Succ 125 Mg/2 Ml Vial) 60 mg IV NOW ONE Stop: 04/09/25 15:26 Last Admin: 04/09/25 15:37 Dose: 60 mg Documented By: ILEANA Vital Signs Vital signs: Vital Signs - 8 hr 04/09/25 17:46 04/09/25 18:00 04/09/25 18:30 Pulse Rate 79 69 73 Respiratory Rate 23 31 H 28 H Blood Pressure Pulse Oximetry 94 93 95 04/09/25 19:00 04/09/25 19:30 04/09/25 20:00 Pulse Rate 76 77 78 Respiratory Rate 22 23 20 Blood Pressure Pulse Oximetry 94 94 95 04/09/25 20:13 04/09/25 20:13 Pulse Rate 75 Respiratory Rate 23 Blood Pressure 128/58 L Pulse Oximetry 95 <Saravanan Saldivar MD - Last Filed: 04/10/25 01:12> Orders Ordered: ED Orders 04/09/25 16:41 CT angio chest PE protocol Stat 04/09/25 18:34 Blood Culture Stat Discontinued Medications Albuterol (Albuterol 2.5 Mg/3 Ml Neb (Adult)) 2.5 mg INH [id number] PRN PRN Reason: Shortness Of Breath Last Admin: 04/09/25 15:05 Dose: 2.5 mg Documented By: ELLA Albuterol (Albuterol Hfa Prepack) 1 box MISC DIRECTED ONE Stop: 04/09/25 19:47 Last Admin: 04/09/25 20:10 Dose: 1 box Documented By: AGNIESZKA Albuterol/Ipratropium (Albuterol/Ipratropium 3 Ml Ampul) 3 ml INH NOW ONE Stop: 04/09/25 13:14 Last Admin: 04/09/25 13:16 Dose: 3 ml Documented By: ELLA Albuterol/Ipratropium (Albuterol/Ipratropium 3 Ml Ampul) 3 ml INH NOW ONE Stop: 04/09/25 15:26 Last Admin: 04/09/25 15:36 Dose: 3 ml Documented By: ILEANA Doxycycline Hyclate (Doxycycline Hyclate 100 Mg Tablet) 100 mg PO NOW ONE Stop: 04/09/25 19:47 Last Admin: 04/09/25 20:10 Dose: 100 mg Documented By: AGNIESZKA Magnesium Sulfate (Magnesium Sulfate) 2 gm in 50 mls @ 150 mls/hr IV NOW ONE Stop: 04/09/25 15:48 Last Infusion: 04/09/25 16:54 Dose: Infused Documented By: AGNIESZKA Co-signed By: JORGE Infusion: 04/09/25 15:52 Dose: 100 mls/hr Documented By: ILEANA Co-signed By: JORGE(2) Admin: 04/09/25 15:36 Dose: 150 mls/hr Documented By: ILEANA Co-signed By: JORGE Ceftriaxone Sodium 1,000 mg/ (Sodium Chloride) 100 mls @ 200 mls/hr IV NOW ONE Stop: 04/09/25 17:54 Last Infusion: 04/09/25 18:56 Dose: Infused Documented By: Admin: 04/09/25 18:14 Dose: 200 mls/hr Documented By: MK Methylprednisolone (Methylprednisolone Succ 125 Mg/2 Ml Vial) 60 mg IV NOW ONE Stop: 04/09/25 15:26 Last Admin: 04/09/25 15:37 Dose: 60 mg Documented By: CTS Vital Signs Vital signs: Vital Signs - 8 hr 04/09/25 17:46 04/09/25 18:00 04/09/25 18:30 Pulse Rate 79 69 73 Respiratory Rate 23 31 H 28 H Blood Pressure Pulse Oximetry 94 93 95 04/09/25 19:00 04/09/25 19:30 04/09/25 20:00 Pulse Rate 76 77 78 Respiratory Rate 22 23 20 Blood Pressure Pulse Oximetry 94 94 95 04/09/25 20:13 04/09/25 20:13 Pulse Rate 75 Respiratory Rate 23 Blood Pressure 128/58 L Pulse Oximetry 95 MDM - SOB/Dyspnea <Ana Yi MD - Last Filed: 04/09/25 17:54> Lab Data 04/09/25 14:25 04/09/25 14:25 Labs: Lab Results 04/09/25 04/09/25 Range/Units 13:10 14:25 WBC 8.3 (4.5-11.0) X10^3/uL RBC 4.60 (4.0-5.2) X10^6/uL Hgb 11.6 L (12.0-16.0) g/dL Hct 35.7 L (36-46) % MCV 77.6 L (80-100) fL MCH 25.2 L (26-34) PG MCHC 32.5 (30-36) % RDW 16.9 H (11.6-14.8) % Plt Count 293 (150-400) X10^3/uL Neut % (Auto) 49.6 L (50-75) % Lymph % (Auto) 38.0 (25-40) % [place] % (Auto) 6.1 (3-14) % Eos % (Auto) 5.5 H (2-4) % Baso % (Auto) 0.8 (0-2) % Neut # (Auto) 4100 (1760-4772) /uL Lymph # (Auto) 3200 (3090-4004) /uL [place] # (Auto) 500 (0-900) /uL Eos # (Auto) 500 H (0-450) /uL Baso # (Auto) 100 (0-100) /uL PT 12.0 (9.4-12.5) SECONDS INR 1.1 (0.9-1.3) D-Dimer 696 H (<500) ng/ml Sodium 141 (137-145) mmol/L Potassium 3.6 (3.4-5.1) mmol/L Chloride 106 (98-107) mmol/L Carbon Dioxide 24 (22-32) mmol/L BUN 12 (7-17) mg/dL Creatinine 0.75 (0.52-1.04) mg/dL Estimated GFR > 60 (>60) mL/min BUN/Creatinine Ratio 16.0 (6-22) Glucose 81 (70-99) mg/dL Lactate 1.2 (0.7-2.1) mmol/L Calcium 8.9 (8.4-10.2) mg/dL Total Bilirubin 0.1 L (0.2-1.3) mg/dL AST 26 (14-36) IU/L ALT 23 (<35) IU/L Alkaline Phosphatase 107 (38-126) U/L Troponin I < 0.012 (0.01-0.034) ng/mL NT-Pro-B Natriuret Pep 60 (<125) pg/mL Total Protein 8.4 H (6.3-8.2) g/dL Albumin 4.3 (3.5-5.0) g/dL Globulin 4.1 (1.7-4.1) g/dL Albumin/Globulin Ratio 1.0 (1.0-2.8) SARS-CoV-2 (PCR) Negative (Negative) Influenza A (RT-PCR) Flu a negative (NEGATIVE) Influenza B (RT-PCR) Flu b negative (NEGATIVE) RSV (PCR) Negative (Negative) Point of Care Testing Test Results Negative Imaging Data Chest x-ray: Radiologist's Impression: PROCEDURE: XR CHEST 1V INDICATIONS: Shortness of breath TECHNIQUE: One view of the chest was acquired. COMPARISON: None. FINDINGS: Surgical changes and devices: None. Lungs and pleura: Minimal medial atelectasis and or infiltrate on the right Mediastinum: Mediastinal contours appear normal. Heart size is normal. Bones and chest wall: No suspicious bony lesions. Overlying soft tissues appear unremarkable. IMPRESSION: Minimal atelectasis and or infiltrate noted at the right lung base medially Approved by: Juvenal Magallon M.D. on 04/09/2025 at 14:35 MDM Narrative Medical decision making narrative: 39 years old female with history of asthma came in today complaining of chest tightness, shortness of breath, wheezing, coughing worsening since last night. She started with nasal congestion, runny nose, cough, fever on Friday and was tested negative for COVID, flu at her primary care doctor office then on noticed shortness of breath and got worse last night. She said her fever went away. She denied any vomiting, diarrhea, abdominal pain, urine problem, shortness is being . Her last asthma attack was a year ago. On exam showed expiratory wheezing both lungs. Her CV exam, abdominal exam were normal. She alert oriented x4 without acute distress in the ED. Her CBC showed hemoglobin 11.6 at the baseline otherwise normal CBC. Her PT INR, BNP, lactic acid, LFT, troponin, proBNP were normal. Her EKG showed normal sinus rhythm at 69 beats per minute with PVCs without ischemic ST-T changes. QTC was 480. Her D-dimer came back at 696 so we ordered a CTA chest to rule out PE and it was pending. I signed out to my colleague during the shift change. She was given IV Solu-Medrol, DuoNeb nebulization, albuterol nebulization. My impression would be asthma exacerbation. She has negative COVID and flu tests in the clinic on Friday. Repeat COVID flu and RSV today were negative. Chest x-ray showed minimal atelectasis versus infiltrate right lung base medially. We sent a blood culture and started her on Rocephin while waiting for the CTA chest. <Saravanan Saldivar MD - Last Filed: 04/10/25 01:12> Lab Data Labs: Lab Results 04/09/25 04/09/25 Range/Units 13:10 14:25 WBC 8.3 (4.5-11.0) X10^3/uL RBC 4.60 (4.0-5.2) X10^6/uL Hgb 11.6 L (12.0-16.0) g/dL Hct 35.7 L (36-46) % MCV 77.6 L (80-100) fL MCH 25.2 L (26-34) PG MCHC 32.5 (30-36) % RDW 16.9 H (11.6-14.8) % Plt Count 293 (150-400) X10^3/uL Neut % (Auto) 49.6 L (50-75) % Lymph % (Auto) 38.0 (25-40) % [place] % (Auto) 6.1 (3-14) % Eos % (Auto) 5.5 H (2-4) % Baso % (Auto) 0.8 (0-2) % Neut # (Auto) 4100 (9553-8853) /uL Lymph # (Auto) 3200 (1204-0955) /uL [place] # (Auto) 500 (0-900) /uL Eos # (Auto) 500 H (0-450) /uL Baso # (Auto) 100 (0-100) /uL PT 12.0 (9.4-12.5) SECONDS INR 1.1 (0.9-1.3) D-Dimer 696 H (<500) ng/ml Sodium 141 (137-145) mmol/L Potassium 3.6 (3.4-5.1) mmol/L Chloride 106 (98-107) mmol/L Carbon Dioxide 24 (22-32) mmol/L BUN 12 (7-17) mg/dL Creatinine 0.75 (0.52-1.04) mg/dL Estimated GFR > 60 (>60) mL/min BUN/Creatinine Ratio 16.0 (6-22) Glucose 81 (70-99) mg/dL Lactate 1.2 (0.7-2.1) mmol/L Calcium 8.9 (8.4-10.2) mg/dL Total Bilirubin 0.1 L (0.2-1.3) mg/dL AST 26 (14-36) IU/L ALT 23 (<35) IU/L Alkaline Phosphatase 107 (38-126) U/L Troponin I < 0.012 (0.01-0.034) ng/mL NT-Pro-B Natriuret Pep 60 (<125) pg/mL Total Protein 8.4 H (6.3-8.2) g/dL Albumin 4.3 (3.5-5.0) g/dL Globulin 4.1 (1.7-4.1) g/dL Albumin/Globulin Ratio 1.0 (1.0-2.8) SARS-CoV-2 (PCR) Negative (Negative) Influenza A (RT-PCR) Flu a negative (NEGATIVE) Influenza B (RT-PCR) Flu b negative (NEGATIVE) RSV (PCR) Negative (Negative) Point of Care Testing Test Results Negative Imaging Data CTA chest PE protocol: Radiologist's Impression: [address] [address] [address] Scan Report Signed Patient: Donnie Ojeda MR#: [id number] : 1985 Acct:[id number] Age/Sex: 39 / F Date of Service: 04/09/25 Loc: ED Accession Number: [id number] Procedure: CT angio chest PE protocol Ordering Provider: Ana Yi MD PROCEDURE: CT ANGIO CHEST PE PROTOCOL INDICATIONS: Shortness of breath, positive D-dimer TECHNIQUE: After the administration of intravenous contrast, 2 mm thick sections acquired from the pulmonary apices to the posterior costophrenic angles. 3-dimensional maximum intensity projection (MIP) coronal and sagittal reformats were then acquired through the thorax. For radiation dose reduction, the following was used: automated exposure control, adjustment of mA and/or kV according to patient size. COMPARISON: None. FINDINGS: Pulmonary arteries: Pulmonary arteries are normal in size, and demonstrate no intraluminal filling defects to suggest central pulmonary embolism. Lower Neck: No enlarged lymph nodes. Axillae: No enlarged lymph nodes. Chest Wall: Unremarkable. Bones: Unremarkable. Lungs and Pleura: No pneumothorax or pleural effusions. Diffuse bronchial wall thickening particularly in the lower lobes. Mild regional ground-glass density may reflect differential aeration. Right middle lobe focal atelectasis with scarring appears chronic Heart: Heart size is normal. No pericardial effusion. Thoracic Vessels: No aortic aneurysm. Mediastinum and [place]: Mediastinal adenopathy. Largest is a subcarinal lymph node measuring 1.8 x 1.3 cm Esophagus: No wall thickening. No hiatal hernia. Upper Abdomen: Visualized upper abdomen solid organs and bowel loops appear normal. IMPRESSION: No pulmonary embolus. Diffuse bronchial wall thickening particularly in the lower lungs consistent with chronic bronchitis Approved by: Juvenal Magallon M.D. on 04/09/2025 at 17:19 MDM Narrative Medical decision making narrative: 39 years old female with history of asthma came in today complaining of chest tightness, shortness of breath, wheezing, coughing worsening since last night. She started with nasal congestion, runny nose, cough, fever on Friday and was tested negative for COVID, flu at her primary care doctor office then on noticed shortness of breath and got worse last night. She said her fever went away. She denied any vomiting, diarrhea, abdominal pain, urine problem, shortness is being . Her last asthma attack was a year ago. On exam showed expiratory wheezing both lungs. Her CV exam, abdominal exam were normal. She alert oriented x4 without acute distress in the ED. Her CBC showed hemoglobin 11.6 at the baseline otherwise normal CBC. Her PT INR, BNP, lactic acid, LFT, troponin, proBNP were normal. Her EKG showed normal sinus rhythm at 69 beats per minute with PVCs without ischemic ST-T changes. QTC was 480. Her D-dimer came back at 696 so we ordered a CTA chest to rule out PE and it was pending. I signed out to my colleague during the shift change. She was given IV Solu-Medrol, DuoNeb nebulization, albuterol nebulization. My impression would be asthma exacerbation. She has negative COVID and flu tests in the clinic on Friday. Repeat COVID flu and RSV today were negative. Chest x-ray showed minimal atelectasis versus infiltrate right lung base medially. We sent a blood culture and started her on Rocephin while waiting for the CTA chest. 04/09/25, 1830, Yariel. Sign-out from Dr. Whelan. 39-year-old female with history of asthma has shortness of breath and chest tightness, recent cough. Clear lungs. EKG without obvious ischemic changes. BNP normal. Troponin normal. D-dimer was sent and was elevated. HCG negative. CTA chest ordered and is pending at this time. Nebulized bronchodilator given, IV Solu-Medrol steroid given. COVID and flu swab negative at clinic recently. Repeat COVID/RSV/flu negative today. Chest x-ray showed atelectasis versus right basilar infiltrate. Blood culture sent, IV ceftriaxone. CTA results pending. We will give oral doxycycline atypical coverage awaiting CT results. CTA chest negative for PE, bronchitic change noted. See radiology report. Symptoms improved, no oxygen requirement. Home trial of prednisone prescription sent to her requested pharmacy, refill of albuterol inhaler dispensed with AeroChamber spacer, oral antibiotic doxycycline prescription sent to her pharmacy. Recheck advised with the regular doctor early this next week. Discharged home with family. Return precautions discussed. Discharge Plan Departure Patient Disposition: Home Clinical Impression: Atypical pneumonia, Asthma exacerbation Activity Restrictions/Additional Instructions: History of asthma, recent cough and shortness of breath. Chest x-ray suspicious for possible right-sided lower pneumonia. D-dimer was elevated, CT angiogram of the chest was therefore performed to look for blood clots to the lungs. CT angiogram did not show blood clots to the lungs, did show chronic bronchitis like changes. Antibiotics were initiated prior based on chest x-ray for possible pneumonia. Consider atypical pneumonia. We will give further doxycycline antibiotic, oral dose given now after IV ceftriaxone, we will give further oral doxycycline antibiotic prescription to your requested pharmacy. Inhaler refill with spacer given/dispensed, take 2 puffs 4 times daily for the next week and then as needed. We will give further prescription steroid with oral prednisone sent to your requested pharmacy as well. Recheck symptoms with your regular doctor this early mid next week if not improving. Return to this/nearest emergency department for any change worsening symptoms or any concerns prior. Prescriptions: New prednisone 20 mg tablet 40 mg PO DAILY 5 Days Qty: 10 0RF doxycycline hyclate 100 mg tablet 100 mg PO BID Qty: 20 0RF No Action prednisone 10 mg tablets,dose pack See Rx Instructions .ROUTE .COMPLEX Qty: 21 0RF Rx Instructions: 6 tabs p.o. x1 day, then 5 tabs p.o. x1 day, then 4 tablets p.o. x1 day, then 3 tabs p.o. x1 day, then 2 tabs p.o. x1 day, then 1 tab p.o. x1 day acetaminophen 650 mg Tablet 650 mg PO Q4H PRN (Reason: Mild Pain (Scale Score 1-4)) methadone 5 mg Tablet 260 mg PO DAILY Patient Comments: Edited dose per pt. & spouse. Dispense form liquid, per pt. & spouse, from clinic daily. RN unable to edit Strength & Dispense Form above. prednisone 20 mg tablet See Rx Instructions .ROUTE .COMPLEX Qty: 12 0RF Rx Instructions: 60 mg (3 pills) daily for 2 days, then 40 mg (2 pills) daily for 2 days, then 20mg (1 pill) daily for 2 days then stop Stand Alone Forms: Patient Portal/API
[2025-04-09] MEDS: MAGNESIUM SULFATE 2 GM/50 ML PIGGYBACK IV (15:36)
[2025-04-09] MEDS: methylPREDNISolone succ 125 MG/2 ML VIAL 60 MG IV (15:37)
--- NOTE | 2025-04-09 16:41 | DI.CT.S_ITS ---
PROCEDURE: CT ANGIO CHEST PE PROTOCOL INDICATIONS: Shortness of breath, positive D-dimer TECHNIQUE: After the administration of intravenous contrast, 2 mm thick sections acquired from the pulmonary apices to the posterior costophrenic angles. 3-dimensional maximum intensity projection (MIP) coronal and sagittal reformats were then acquired through the thorax. For radiation dose reduction, the following was used: automated exposure control, adjustment of mA and/or kV according to patient size. COMPARISON: None. FINDINGS: Pulmonary arteries: Pulmonary arteries are normal in size, and demonstrate no intraluminal filling defects to suggest central pulmonary embolism. Lower Neck: No enlarged lymph nodes. Axillae: No enlarged lymph nodes. Chest Wall: Unremarkable. Bones: Unremarkable. Lungs and Pleura: No pneumothorax or pleural effusions. Diffuse bronchial wall thickening particularly in the lower lobes. Mild regional ground-glass density may reflect differential aeration. Right middle lobe focal atelectasis with scarring appears chronic Heart: Heart size is normal. No pericardial effusion. Thoracic Vessels: No aortic aneurysm. Mediastinum and [place]: Mediastinal adenopathy. Largest is a subcarinal lymph node measuring 1.8 x 1.3 cm Esophagus: No wall thickening. No hiatal hernia. Upper Abdomen: Visualized upper abdomen solid organs and bowel loops appear normal. IMPRESSION: No pulmonary embolus. Diffuse bronchial wall thickening particularly in the lower lungs consistent with chronic bronchitis Approved by: Juvenal Magallon M.D. on 04/09/2025 at 17:19
[2025-04-09] MEDS: ALBUTEROL HFA PREPACK 1 BOX MISC (20:10)
[2025-04-09] MEDS: DOXYCYCLINE HYCLATE 100 MG TABLET PO (20:10)
== END 2025-04-09 20:27 | disposition home or self-care (01) ==
PROVIDERS: Emergency Medicine; Emergency Provider Emergency Medicine
DX: J18.9 Pneumonia, unspecified organism (principal); J45.901 Unspecified asthma with (acute) exacerbation; R50.9 Fever, unspecified; R09.81 Nasal congestion; R79.89 Other specified abnormal findings of blood chemistry
CPT/HCPCS: 71045; 71275; 80053; 81025; 83605; 83880; 84484; 85025; 85379; 85610; 87040; 87637; 93005; 94150; 96365; 96367; 96375; 99284; J0696; J2919; J3475; J7050; J7613; Q9967

== ENCOUNTER 2025-04-13 11:07 | Observation (INO) | payer MEDICAID, SELFPAY ==
[2023-05-23 02:33] VITALS: BMI 35.5
[2025-04-13] VITALS (15 sets, daily range): BP systolic 126–148; BP diastolic 57–83; PULSE 63–99; RESP 11–23; TEMP 36.2–36.9; O2SAT 91–99; BMI 38.5
--- NOTE | 2025-04-13 11:22 | EKG_ITS ---
[address] [address] Test Date: 2025-04-13 Pat Name: Donnie Ojeda Department: Room: Gender: Female Stewardess Supervisor: MURTAZA : 1985 Requested By: Order Number: [id number] Reading MD: Clive Burnett Measurements Intervals [place] Rate: 80 P: 62 WV: 166 QRS: 32 QRSD: 84 T: 35 QT: 348 QTc: 401 Interpretive Statements Normal sinus rhythm Electronically Signed On 04-13-2025 14:11:18 PST by Clive Burnett
--- NOTE | 2025-04-13 11:22 | DI.RAD.S_ITS ---
PROCEDURE: XR CHEST 1V INDICATIONS: Shortness of breath TECHNIQUE: One view of the chest was acquired. COMPARISON: [facility], CR, XR CHEST 1V, 04/09/2025, 14:48. FINDINGS: Surgical changes and devices: None. Lungs and pleura: Lungs are clear. No pleural effusions or pneumothorax. Mediastinum: Mediastinal contours appear normal. Heart size is normal. Bones and chest wall: No suspicious bony lesions. Overlying soft tissues appear unremarkable. IMPRESSION: No acute cardiopulmonary abnormality is seen. Dictated by: Mart Amezcua M.D. on 04/13/2025 at 12:37 Approved by: Mart Amezcua M.D. on 04/13/2025 at 12:38
[2025-04-13] MEDS: IPRATROPIUM 0.5 MG/2.5 ML NEB INH (11:33)
[2025-04-13] MEDS: ALBUTEROL 2.5 MG/3 ML NEB (ADULT) 10 MG INH (11:33)
[2025-04-13] MEDS: MAGNESIUM SULFATE 2 GM/50 ML PIGGYBACK IV (11:34)
[2025-04-13 11:50] LABS: Add Manual Diff / Slide Review NO; Hematocrit 33.4 % (36-46); Hemoglobin 10.9 g/dL (12.0-16.0); Lymphocytes Absolute Auto 2000 /uL (1100-4500); Mean Corpuscular HGB Conc 32.6 % (30-36); Mean Corpuscular Hemoglobin 25.5 PG (26-34); Mean Corpuscular Volume 78.2 fL (80-100); Platelet Count 289 X10^3/uL (150-400)
[2025-04-13 11:59] LABS: INR 1.0 (0.9-1.3); Prothrombin Time 11.1 SECONDS (9.4-12.5)
[2025-04-13 12:02] LABS: Alanine Aminotransferase 25 IU/L (<35); Albumin 4.1 g/dL (3.5-5.0); Albumin Globulin Ratio 1.1 (1.0-2.8); Alkaline Phosphatase 92 U/L (38-126); Blood Urea Nitrogen 16 mg/dL (7-17); Calcium 8.8 mg/dL (8.4-10.2); Carbon Dioxide 23 mmol/L (22-32); Chloride 108 mmol/L (98-107); Estimated Glomerular Filt Rate > 60 mL/min (>60); Globulin 3.9 g/dL (1.7-4.1); Glucose 128 mg/dL (70-99); HEMOLYSIS 35 (0-50); Lactate (Lactic Acid) 2.6 mmol/L (0.7-2.1); Potassium 3.6 mmol/L (3.4-5.1); Sodium 141 mmol/L (137-145); Total Protein 8.0 g/dL (6.3-8.2)
[2025-04-13 12:14] LABS: NT-proBNP (BNP-Adult 18+) 78 pg/mL (<125); Troponin I < 0.012 ng/mL (0.01-0.034)
[2025-04-13 13:18] LABS: Reflexed Lactate in 2 Hours Y
[2025-04-13 14:01] LABS: Lactate 2HR (Lactic Acid Rflx) 3.0 mmol/L (0.7-2.1)
--- NOTE | 2025-04-13 14:49 | ED.SOB ---
HPI - SOB/Dyspnea <Kacy Salazar DO - Last Filed: 04/18/25 17:06> General Chief Complaint: Shortness of Breath/Dyspnea Stated Complaint: Pneumonia Time Seen by Provider: 04/13/25 11:24 Source: patient and EMS Mode of arrival: EMS Limitations: no limitations History of Present Illness HPI Narrative: [age] year female history of tobacco use, history of asthma methadone gabapentin was seen here on 04/09/2025 for shortness of breath, wheezing and coughing patient states she has mildly improved at home but started feeling worse again has a little bit of right-sided discomfort. Patient states she has been taking oral antibiotics as well as oral steroids. She denies any fevers. She states this feels different than her usual asthma exacerbations. Patient states she was told she had bronchitis. Patient states no nausea or vomiting no other GI or urinary symptoms. Some mild swelling in her feet. She has had a nonproductive cough. She notes she has 4 children at home they has a cough last week but were all improved now. She states she is currently on methadone and gabapentin. She denies any drug allergies. Denies any prior surgeries. Does use tobacco daily, occasional alcohol, no recreational drugs. Related Data Home Medications ?Medication ?Instructions ?Recorded ?Confirmed acetaminophen 650 mg tablet 650 mg PO Q4H PRN Mild Pain (Scale 04/17/22 04/13/25 Score 1-4) methadone 5 mg tablet 290 mg PO DAILY 04/17/22 04/13/25 albuterol sulfate 90 mcg/actuation 1 puff inhalation Q8H 04/13/25 04/13/25 aerosol inhaler gabapentin 600 mg tablet 600 mg PO DAILY 04/13/25 04/13/25 montelukast 10 mg tablet 10 mg PO DAILY 04/13/25 04/13/25 Previous Rx's ?Medication ?Instructions ?Recorded doxycycline hyclate 100 mg tablet 100 mg PO BID #20 tabs 04/09/25 prednisone 50 mg tablet 50 mg PO DAILY #5 tabs 04/14/25 Allergies Allergy/AdvReac Type Severity Reaction Status Date / Time No Known Drug Allergies Allergy Verified 04/13/25 11:24 Review of Systems <Kacy Salazar DO - Last Filed: 04/18/25 17:06> Review of Systems ROS Unobtainable: All systems reviewed & are unremarkable except as noted in HPI and below Patient History <Kacy Salazar DO - Last Filed: 04/18/25 17:06> Medical History Methadone dependence Asthma Social History household members: spouse, family and children Smoking Status: Never smoker alcohol intake: never tobacco type: cigarettes alcohol intake frequency: other Exam <Kacy Salazar DO - Last Filed: 04/18/25 17:06> Narrative Exam Narrative: GEN: well nourished, well appearing female, alert and oriented x 3, patient appears to be in mild distress. HEENT: Atraumatic, pupils are equal round reactive to light, extraocular movements are intact, nares are clear, there is no conjunctival pallor. Throat is clear without any exudates, erythema, tonsillar enlargement or uvular deviation HEART: Regular rate and rhythm without murmur, clicks, rubs. LUNGS:Lungs slightly decreased that are bilaterally, mild wheezes bilaterally rales, crackles, chest moves symmetrically, no tachypnea. ABD:bowel sounds normal, soft, non-tender, no guarding, rebound, rigidity, no masses noted, no hepatosplenomegaly :No CVA tenderness MSCL: Non-tender, no muscle atrophy, muscles strength 5/5 upper and lower extremities, full range of motion, normal gait NEURO:CN 2-12 intact, sensation normal, reflexes 2/4 upper and lower extremities. Initial Vital Signs Initial Vital Signs: Vital Signs Temperature 98.5 F 04/13/25 11:23 Pulse Rate 99 H 04/13/25 11:23 Respiratory Rate 22 04/13/25 11:23 Blood Pressure 132/78 04/13/25 11:23 Pulse Oximetry 91 04/13/25 11:23 Oxygen Delivery Method Room Air 04/13/25 11:23 <Saravanan Saldivar MD - Last Filed: 04/14/25 06:57> Initial Vital Signs Initial Vital Signs: Vital Signs Temperature 98.5 F 04/13/25 11:23 Pulse Rate 99 H 04/13/25 11:23 Respiratory Rate 22 04/13/25 11:23 Blood Pressure 132/78 04/13/25 11:23 Pulse Oximetry 91 04/13/25 11:23 Oxygen Delivery Method Room Air 04/13/25 11:23 Course <Kacy Salazar, DO - Last Filed: 04/18/25 17:06> Orders Ordered: Discontinued Medications Acetaminophen (Acetaminophen 325 Mg Tablet) 650 mg PO Q6H PRN PRN Reason: Fever/Mild Pain (1-3) Last Admin: 04/14/25 09:58 Dose: 650 mg Documented By: NATALIIA Hydrocodone Bitart/Acetaminophen (Hydrocodone/Acet 5/325 Tablet) 1 tab PO Q4H PRN PRN Reason: Pain, Moderate (4-6) Albuterol (Albuterol 2.5 Mg/3 Ml Neb (Adult)) 10 mg INH NOW ONE Stop: 04/13/25 11:27 Last Admin: 04/13/25 11:33 Dose: 10 mg Documented By: MURTAZA Albuterol (Albuterol Hfa Mdi 60 Puff/8 Gm Inhaler (Covid Only)) 1 puff INH Q8H [facility] Last Admin: 04/14/25 10:44 Dose: Not Given Documented By: GEOFFREY Albuterol/Ipratropium (Albuterol/Ipratropium 3 Ml Ampul) 3 ml INH RTQ4HR PRN PRN Reason: Shortness Of Breath Last Admin: 04/14/25 10:30 Dose: 3 ml Documented By: GEOFFREY Calcium Carbonate (Calcium Carbonate 500 Mg Tab) 1,000 mg PO Q4HR PRN PRN Reason: Dyspepsia Doxycycline Hyclate (Doxycycline Hyclate 100 Mg Tablet) 100 mg PO NOW ONE Stop: 04/13/25 18:12 Last Admin: 04/13/25 18:19 Dose: 100 mg Documented By: NAHUM Doxycycline Hyclate (Doxycycline Hyclate 100 Mg Tablet) 100 mg PO BID [facility] Last Admin: 04/14/25 09:47 Dose: 100 mg Documented By: NATALIIA Gabapentin (Gabapentin 600 Mg Tablet) 600 mg PO DAILY [facility] Last Admin: 04/14/25 09:47 Dose: 600 mg Documented By: NATALIIA Magnesium Sulfate (Magnesium Sulfate) 2 gm in 50 mls @ 150 mls/hr IV NOW ONE Stop: 04/13/25 11:43 Last Infusion: 04/13/25 13:30 Dose: Infused Documented By: INGA Co-signed By: NAHUM Admin: 04/13/25 11:34 Dose: 150 mls/hr Documented By: JORGE Co-signed By: AGNIESZKA Sodium Chloride (Normal Saline 0.9%) 1,000 mls @ 1,000 mls/hr IV BOLUS ONE Stop: 04/13/25 15:50 Last Infusion: 04/13/25 16:21 Dose: Infused Documented By: Admin: 04/13/25 15:19 Dose: 1,000 mls/hr Documented By: INGA Piperacillin Sod/Tazobactam (Sod 4.5 gm/ Sodium Chloride) 100 mls @ 200 mls/hr IV NOW ONE Stop: 04/13/25 16:48 Last Infusion: 04/13/25 18:04 Dose: Infused Documented By: Admin: 04/13/25 17:30 Dose: 200 mls/hr Documented By: NAHUM Sodium Chloride (Normal Saline 0.9%) 1,365 mls @ 910 mls/hr 30 ml/kg infuse over 90 min (1365 ml) IV NOW ONE Stop: 04/13/25 19:01 Last Admin: 04/13/25 18:23 Dose: Not Given Documented By: LAKSHMI Sodium Chloride (Normal Saline 0.9%) 1,000 mls @ 1,000 mls/hr IV BOLUS ONE Stop: 04/13/25 18:33 Last Infusion: 04/13/25 19:45 Dose: Infused Documented By: Admin: 04/13/25 17:36 Dose: 1,000 mls/hr Documented By: NAHUM Sodium Chloride (Normal Saline 0.9%) 1,000 mls @ 125 mls/hr IV CONT DOMINIQUE Last Admin: 04/14/25 05:47 Dose: 125 mls/hr Documented By: Infusion: 04/14/25 05:47 Dose: Infused Documented By: Admin: 04/13/25 21:59 Dose: 125 mls/hr Documented By: LEROY Ibuprofen (Ibuprofen 600 Mg Tablet) 600 mg PO Q6H PRN PRN Reason: Fever/Mild Pain (1-3) Ipratropium [place] (Ipratropium 0.5 Mg/2.5 Ml Neb) 0.5 mg INH NOW ONE Stop: 04/13/25 11:27 Last Admin: 04/13/25 11:33 Dose: 0.5 mg Documented By: MRUTAZA Ketorolac Tromethamine (Ketorolac 30 Mg/Ml Vial) 15 mg IV NOW ONE Stop: 04/13/25 15:41 Last Admin: 04/13/25 16:20 Dose: 15 mg Documented By: INGA Methadone HCl (Methadone Intensol 10 Mg/Ml Oral.Conc) 290 mg PO NOW ONE Stop: 04/14/25 09:28 Last Admin: 04/14/25 09:47 Dose: 290 mg Documented By: NATALIIA Montelukast Sodium (Montelukast 10 Mg Tablet) 10 mg PO DAILY [facility] Last Admin: 04/14/25 09:47 Dose: 10 mg Documented By: NATALIIA Morphine Sulfate (Morphine 4 Mg/Ml Inj) 4 mg IV NOW ONE Stop: 04/13/25 17:35 Last Admin: 04/13/25 17:38 Dose: 4 mg Documented By: NAHUM Naloxone HCl (Naloxone 0.4 Mg/Ml Vial) 0.2 mg IV Q2MIN PRN PRN Reason: Opiate Reversal Ondansetron HCl (Ondansetron 4 Mg/2 Ml Inj) 4 mg IV Q8HR PRN PRN Reason: Nausea And Vomiting Prednisone (Prednisone 20 Mg Tablet) 40 mg PO DAILY [facility] Last Admin: 04/14/25 09:47 Dose: 40 mg Documented By: NATALIIA Vital Signs Vital signs: Vital Signs - 8 hr 04/13/25 14:35 04/13/25 17:23 04/13/25 17:26 Pulse Rate 86 82 Respiratory Rate 20 Blood Pressure 126/57 L 129/62 Pulse Oximetry 97 99 Oxygen Delivery Method Room Air 04/13/25 17:26 04/13/25 17:30 04/13/25 17:30 Pulse Rate 79 79 Respiratory Rate Blood Pressure 130/60 Pulse Oximetry 97 96 Oxygen Delivery Method 04/13/25 18:00 04/13/25 18:00 04/13/25 18:30 Pulse Rate 74 71 Respiratory Rate 13 12 Blood Pressure 131/65 Pulse Oximetry 96 96 Oxygen Delivery Method 04/13/25 18:30 04/13/25 19:03 04/13/25 19:04 Pulse Rate 73 Respiratory Rate 15 Blood Pressure 139/68 130/65 Pulse Oximetry 98 Oxygen Delivery Method Room Air 04/13/25 19:04 04/13/25 19:30 04/13/25 19:30 Pulse Rate 69 68 Respiratory Rate 14 14 Blood Pressure 127/64 Pulse Oximetry 98 96 Oxygen Delivery Method <Saravanan Saldivar MD - Last Filed: 04/14/25 06:57> Orders Ordered: Discontinued Medications Acetaminophen (Acetaminophen 325 Mg Tablet) 650 mg PO Q6H PRN PRN Reason: Fever/Mild Pain (1-3) Last Admin: 04/14/25 09:58 Dose: 650 mg Documented By: NATALIIA Hydrocodone Bitart/Acetaminophen (Hydrocodone/Acet 5/325 Tablet) 1 tab PO Q4H PRN PRN Reason: Pain, Moderate (4-6) Albuterol (Albuterol 2.5 Mg/3 Ml Neb (Adult)) 10 mg INH NOW ONE Stop: 04/13/25 11:27 Last Admin: 04/13/25 11:33 Dose: 10 mg Documented By: MURTAZA Albuterol (Albuterol Hfa Mdi 60 Puff/8 Gm Inhaler (Covid Only)) 1 puff INH Q8H [facility] Last Admin: 04/14/25 10:44 Dose: Not Given Documented By: GEOFFREY Albuterol/Ipratropium (Albuterol/Ipratropium 3 Ml Ampul) 3 ml INH RTQ4HR PRN PRN Reason: Shortness Of Breath Last Admin: 04/14/25 10:30 Dose: 3 ml Documented By: GEOFFREY Calcium Carbonate (Calcium Carbonate 500 Mg Tab) 1,000 mg PO Q4HR PRN PRN Reason: Dyspepsia Doxycycline Hyclate (Doxycycline Hyclate 100 Mg Tablet) 100 mg PO NOW ONE Stop: 04/13/25 18:12 Last Admin: 04/13/25 18:19 Dose: 100 mg Documented By: NAHUM Doxycycline Hyclate (Doxycycline Hyclate 100 Mg Tablet) 100 mg PO BID [facility] Last Admin: 04/14/25 09:47 Dose: 100 mg Documented By: NATALIIA Gabapentin (Gabapentin 600 Mg Tablet) 600 mg PO DAILY [facility] Last Admin: 04/14/25 09:47 Dose: 600 mg Documented By: NATALIIA Magnesium Sulfate (Magnesium Sulfate) 2 gm in 50 mls @ 150 mls/hr IV NOW ONE Stop: 04/13/25 11:43 Last Infusion: 04/13/25 13:30 Dose: Infused Documented By: INGA Co-signed By: NAHUM Admin: 04/13/25 11:34 Dose: 150 mls/hr Documented By: JORGE Co-signed By: AGNIESZKA Sodium Chloride (Normal Saline 0.9%) 1,000 mls @ 1,000 mls/hr IV BOLUS ONE Stop: 04/13/25 15:50 Last Infusion: 04/13/25 16:21 Dose: Infused Documented By: Admin: 04/13/25 15:19 Dose: 1,000 mls/hr Documented By: INGA Piperacillin Sod/Tazobactam (Sod 4.5 gm/ Sodium Chloride) 100 mls @ 200 mls/hr IV NOW ONE Stop: 04/13/25 16:48 Last Infusion: 04/13/25 18:04 Dose: Infused Documented By: Admin: 04/13/25 17:30 Dose: 200 mls/hr Documented By: NAHUM Sodium Chloride (Normal Saline 0.9%) 1,365 mls @ 910 mls/hr 30 ml/kg infuse over 90 min (1365 ml) IV NOW ONE Stop: 04/13/25 19:01 Last Admin: 04/13/25 18:23 Dose: Not Given Documented By: LAKSHMI Sodium Chloride (Normal Saline 0.9%) 1,000 mls @ 1,000 mls/hr IV BOLUS ONE Stop: 04/13/25 18:33 Last Infusion: 04/13/25 19:45 Dose: Infused Documented By: Admin: 04/13/25 17:36 Dose: 1,000 mls/hr Documented By: NAHUM Sodium Chloride (Normal Saline 0.9%) 1,000 mls @ 125 mls/hr IV CONT [place] Last Admin: 04/14/25 05:47 Dose: 125 mls/hr Documented By: Infusion: 04/14/25 05:47 Dose: Infused Documented By: Admin: 04/13/25 21:59 Dose: 125 mls/hr Documented By: LEROY Ibuprofen (Ibuprofen 600 Mg Tablet) 600 mg PO Q6H PRN PRN Reason: Fever/Mild Pain (1-3) Ipratropium [place] (Ipratropium 0.5 Mg/2.5 Ml Neb) 0.5 mg INH NOW ONE Stop: 04/13/25 11:27 Last Admin: 04/13/25 11:33 Dose: 0.5 mg Documented By: MURTAZA Ketorolac Tromethamine (Ketorolac 30 Mg/Ml Vial) 15 mg IV NOW ONE Stop: 04/13/25 15:41 Last Admin: 04/13/25 16:20 Dose: 15 mg Documented By: INGA Methadone HCl (Methadone Intensol 10 Mg/Ml Oral.Conc) 290 mg PO NOW ONE Stop: 04/14/25 09:28 Last Admin: 04/14/25 09:47 Dose: 290 mg Documented By: NATALIIA Montelukast Sodium (Montelukast 10 Mg Tablet) 10 mg PO DAILY [facility] Last Admin: 04/14/25 09:47 Dose: 10 mg Documented By: NATALIIA Morphine Sulfate (Morphine 4 Mg/Ml Inj) 4 mg IV NOW ONE Stop: 04/13/25 17:35 Last Admin: 04/13/25 17:38 Dose: 4 mg Documented By: NAHUM Naloxone HCl (Naloxone 0.4 Mg/Ml Vial) 0.2 mg IV Q2MIN PRN PRN Reason: Opiate Reversal Ondansetron HCl (Ondansetron 4 Mg/2 Ml Inj) 4 mg IV Q8HR PRN PRN Reason: Nausea And Vomiting Prednisone (Prednisone 20 Mg Tablet) 40 mg PO DAILY [facility] Last Admin: 04/14/25 09:47 Dose: 40 mg Documented By: NATALIIA Vital Signs Vital signs: Vital Signs - 8 hr 04/13/25 14:35 04/13/25 17:23 04/13/25 17:26 Pulse Rate 86 82 Respiratory Rate 20 Blood Pressure 126/57 L 129/62 Pulse Oximetry 97 99 Oxygen Delivery Method Room Air 04/13/25 17:26 04/13/25 17:30 04/13/25 17:30 Pulse Rate 79 79 Respiratory Rate Blood Pressure 130/60 Pulse Oximetry 97 96 Oxygen Delivery Method 04/13/25 18:00 04/13/25 18:00 04/13/25 18:30 Pulse Rate 74 71 Respiratory Rate 13 12 Blood Pressure 131/65 Pulse Oximetry 96 96 Oxygen Delivery Method 04/13/25 18:30 04/13/25 19:03 04/13/25 19:04 Pulse Rate 73 Respiratory Rate 15 Blood Pressure 139/68 130/65 Pulse Oximetry 98 Oxygen Delivery Method Room Air 04/13/25 19:04 04/13/25 19:30 04/13/25 19:30 Pulse Rate 69 68 Respiratory Rate 14 14 Blood Pressure 127/64 Pulse Oximetry 98 96 Oxygen Delivery Method MDM - SOB/Dyspnea <Kacy C Mank, DO - Last Filed: 04/18/25 17:06> Lab Data 04/14/25 05:00 04/14/25 05:00 Labs: Lab Results 04/13/25 04/13/25 04/13/25 Range/Units 11:32 13:41 16:28 WBC 7.3 (4.5-11.0) X10^3/uL RBC 4.28 (4.0-5.2) X10^6/uL Hgb 10.9 L (12.0-16.0) g/dL Hct 33.4 L (36-46) % MCV 78.2 L (80-100) fL MCH 25.5 L (26-34) PG MCHC 32.6 (30-36) % RDW 17.3 H (11.6-14.8) % Plt Count 289 (150-400) X10^3/uL Neut % (Auto) 69.4 (50-75) % Lymph % (Auto) 27.3 (25-40) % [place] % (Auto) 2.6 L (3-14) % Eos % (Auto) 0.1 L (2-4) % Baso % (Auto) 0.6 (0-2) % Neut # (Auto) 5100 (8554-8234) /uL Lymph # (Auto) 2000 (3649-3159) /uL [place] # (Auto) 200 (0-900) /uL Eos # (Auto) 0 (0-450) /uL Baso # (Auto) 0 (0-100) /uL PT 11.1 (9.4-12.5) SECONDS INR 1.0 (0.9-1.3) ABG Sample Site ABG pH (7.35-7.45) ABG pCO2 (35-45) mmHg ABG pO2 (80-100) mmHg ABG HCO3 (23-27) mmol/L ABG Total CO2 (23-27) mmol/L ABG O2 Saturation (95-100) % ABG Base Excess (-2-3) mmol/L Clive Test FiO2 % % Sodium 141 (137-145) mmol/L Potassium 3.6 (3.4-5.1) mmol/L Chloride 108 H (98-107) mmol/L Carbon Dioxide 23 (22-32) mmol/L BUN 16 (7-17) mg/dL Creatinine 0.81 (0.52-1.04) mg/dL Estimated GFR > 60 (>60) mL/min BUN/Creatinine Ratio 19.8 (6-22) Glucose 128 H (70-99) mg/dL Lactate 2.6 H 3.0 H 5.0 H* (0.7-2.1) mmol/L Calcium 8.8 (8.4-10.2) mg/dL Total Bilirubin 0.2 (0.2-1.3) mg/dL AST 27 (14-36) IU/L ALT 25 (<35) IU/L Alkaline Phosphatase 92 (38-126) U/L Troponin I < 0.012 (0.01-0.034) ng/mL NT-Pro-B Natriuret Pep 78 (<125) pg/mL Total Protein 8.0 (6.3-8.2) g/dL Albumin 4.1 (3.5-5.0) g/dL Globulin 3.9 (1.7-4.1) g/dL Albumin/Globulin Ratio 1.1 (1.0-2.8) Procalcitonin < 0.030 (<0.5) ng/mL TSH 1.07 (0.47-4.68) uIU/mL Chlamy pneumoniae PCR (Not Detect) Adenovirus (PCR) (Not Detect) B. pertussis DNA (PCR) (Not Detect) B.parapertussis DNA PCR (Not Detecte) Coronavirus OC43 (PCR) (Not Detect) Coronavirus HKU1 (PCR) (Not Detect) Coronavirus 229E (PCR) (Not Detect) SARS-CoV-2 (PCR) (Not Detecte) Coronavirus NL63 (PCR) (Not Detect) Monoscreen Negative (Negative) Human Metapneumovir PCR (Not Detect) Influenza Type A (PCR) (Not Detect) Influenza Type B (PCR) (Not Detect) M. pneumoniae (PCR) (Not Detect) Parainfluenza 1 (PCR) (Not Detect) Parainfluenza 2 (PCR) (Not Detect) Parainfluenza 3 (PCR) (Not Detect) Parainfluenza 4 (PCR) (Not Detect) RSV (PCR) (Not Detect) Entero/Rhino (PCR) (Not Detect) 04/13/25 04/13/25 04/13/25 Range/Units 16:56 17:14 18:14 WBC (4.5-11.0) X10^3/uL RBC (4.0-5.2) X10^6/uL Hgb (12.0-16.0) g/dL Hct (36-46) % MCV (80-100) fL MCH (26-34) PG MCHC (30-36) % RDW (11.6-14.8) % Plt Count (150-400) X10^3/uL Neut % (Auto) (50-75) % Lymph % (Auto) (25-40) % [place] % (Auto) (3-14) % Eos % (Auto) (2-4) % Baso % (Auto) (0-2) % Neut # (Auto) (7563-9193) /uL Lymph # (Auto) (2687-8837) /uL [place] # (Auto) (0-900) /uL Eos # (Auto) (0-450) /uL Baso # (Auto) (0-100) /uL PT (9.4-12.5) SECONDS INR (0.9-1.3) ABG Sample Site Right radial ABG pH 7.40 (7.35-7.45) ABG pCO2 34.6 L (35-45) mmHg ABG pO2 99 (80-100) mmHg ABG HCO3 21 L (23-27) mmol/L ABG Total CO2 20 L (23-27) mmol/L ABG O2 Saturation 98 (95-100) % ABG Base Excess -3.1 L (-2-3) mmol/L Clive Test Negative FiO2 % 21.0 % % Sodium (137-145) mmol/L Potassium (3.4-5.1) mmol/L Chloride (98-107) mmol/L Carbon Dioxide (22-32) mmol/L BUN (7-17) mg/dL Creatinine (0.52-1.04) mg/dL Estimated GFR (>60) mL/min BUN/Creatinine Ratio (6-22) Glucose (70-99) mg/dL Lactate 3.6 H (0.7-2.1) mmol/L Calcium (8.4-10.2) mg/dL Total Bilirubin (0.2-1.3) mg/dL AST (14-36) IU/L ALT (<35) IU/L Alkaline Phosphatase (38-126) U/L Troponin I < 0.012 (0.01-0.034) ng/mL NT-Pro-B Natriuret Pep (<125) pg/mL Total Protein (6.3-8.2) g/dL Albumin (3.5-5.0) g/dL Globulin (1.7-4.1) g/dL Albumin/Globulin Ratio (1.0-2.8) Procalcitonin (<0.5) ng/mL TSH (0.47-4.68) uIU/mL Chlamy pneumoniae PCR Not detected (Not Detect) Adenovirus (PCR) Not detected (Not Detect) B. pertussis DNA (PCR) Not detected (Not Detect) B.parapertussis DNA PCR Not detected (Not Detecte) Coronavirus OC43 (PCR) Not detected (Not Detect) Coronavirus HKU1 (PCR) Not detected (Not Detect) Coronavirus 229E (PCR) Not detected (Not Detect) SARS-CoV-2 (PCR) Not detected (Not Detecte) Coronavirus NL63 (PCR) Not detected (Not Detect) Monoscreen (Negative) Human Metapneumovir PCR Not detected (Not Detect) Influenza Type A (PCR) Not detected (Not Detect) Influenza Type B (PCR) Not detected (Not Detect) M. pneumoniae (PCR) Not detected (Not Detect) Parainfluenza 1 (PCR) Not detected (Not Detect) Parainfluenza 2 (PCR) Not detected (Not Detect) Parainfluenza 3 (PCR) Not detected (Not Detect) Parainfluenza 4 (PCR) Not detected (Not Detect) RSV (PCR) Not detected (Not Detect) Entero/Rhino (PCR) Not detected (Not Detect) MDM Narrative Medical decision making narrative: Labs show white count of 7.3 hemoglobin of 10.9 was 11.6 on 04/09/2025 microcytic, platelets are 289. INR is 1.0, chloride of 108 electrolytes are otherwise appropriate creatinine 0.81, lactate is 2.6 with a repeat of 3, calcium is 8.8 troponins less than 0.012 with a BNP of 78. Patient had chest x-ray today which shows no acute cardiopulmonary abnormality. EKG shows sinus rhythm rate 80 W[place] 166 QRS of 84, QTC of 401, no acute ST-elevation or depression noted. CTA PE protocol shows no large or central pulmonary embolism, areas of presumed atelectasis seen within the lungs involving lingula and right middle lobe mild degree dependent atelectasis seen with the lower lobes as well. No pericardial effusion. Several borderline prominent mediastinal lymph nodes seen. 2.7 cm left thyroid nodule noted when appropriate consider follow up thyroid ultrasound. Patient on 04/09/2025 had a CTA chest PE protocol which showed no pulmonary embolism, diffuse bronchial wall thickening particularly lung lungs consistent with a chronic bronchitis and mediastinal adenopathy with largest subcarinal lymph node measuring 1.8 x 1.3 cm. Patient has a right middle lobe focal atelectasis with scarring which appears chronic. And mild regional ground-glass density may reflect differential aeration. Patient received albuterol neb and dexamethasone 10 mg EN route. Patient had fluids, magnesium, albuterol 10 mg and ipratropium 0.5 mg here. On rechecked at 15 28 patient states her lungs feel improved. Lactate appears to have trended upwards from 2.6-3. We discussed staying for observation patient is reluctant to stay she is currently receiving fluids we will have her finish these and rechecked lactate. Repeat lactate is 5. On re-evaluation again patient's lungs are still clear. She states she does not feel any worse she feels like her breathing is easier. This time discussed I do not plan to discharge her with a like to obtain CT of her chest again, we will start IV antibiotics add on blood cultures and procalcitonin as well as respiratory panel and repeat troponin and ABG. <Saravanan Saldivar MD - Last Filed: 04/14/25 06:57> Lab Data Attestation: I reviewed the patient's lab results. Lab results narrative: White blood cell count 7300, hemoglobin 10.9, platelets adequate. Glucose 128. Normal renal function, serum CO2, electrolytes. Liver functions normal. Troponin negative/unmeasurable. BNP negative/unmeasurable. Procalcitonin negative. Initial lactate 2.6, on repeat increased 3.0, then increased after IV fluids to 5.0. ABG shows pH 7.4, pCO2 34, PaO2 99. Respiratory panel negative. Labs: Lab Results 04/13/25 04/13/25 04/13/25 Range/Units 11:32 13:41 16:28 WBC 7.3 (4.5-11.0) X10^3/uL RBC 4.28 (4.0-5.2) X10^6/uL Hgb 10.9 L (12.0-16.0) g/dL Hct 33.4 L (36-46) % MCV 78.2 L (80-100) fL MCH 25.5 L (26-34) PG MCHC 32.6 (30-36) % RDW 17.3 H (11.6-14.8) % Plt Count 289 (150-400) X10^3/uL Neut % (Auto) 69.4 (50-75) % Lymph % (Auto) 27.3 (25-40) % [place] % (Auto) 2.6 L (3-14) % Eos % (Auto) 0.1 L (2-4) % Baso % (Auto) 0.6 (0-2) % Neut # (Auto) 5100 (1752-8785) /uL Lymph # (Auto) 2000 (9154-8990) /uL [place] # (Auto) 200 (0-900) /uL Eos # (Auto) 0 (0-450) /uL Baso # (Auto) 0 (0-100) /uL PT 11.1 (9.4-12.5) SECONDS INR 1.0 (0.9-1.3) ABG Sample Site ABG pH (7.35-7.45) ABG pCO2 (35-45) mmHg ABG pO2 (80-100) mmHg ABG HCO3 (23-27) mmol/L ABG Total CO2 (23-27) mmol/L ABG O2 Saturation (95-100) % ABG Base Excess (-2-3) mmol/L Clive Test FiO2 % % Sodium 141 (137-145) mmol/L Potassium 3.6 (3.4-5.1) mmol/L Chloride 108 H (98-107) mmol/L Carbon Dioxide 23 (22-32) mmol/L BUN 16 (7-17) mg/dL Creatinine 0.81 (0.52-1.04) mg/dL Estimated GFR > 60 (>60) mL/min BUN/Creatinine Ratio 19.8 (6-22) Glucose 128 H (70-99) mg/dL Lactate 2.6 H 3.0 H 5.0 H* (0.7-2.1) mmol/L Calcium 8.8 (8.4-10.2) mg/dL Total Bilirubin 0.2 (0.2-1.3) mg/dL AST 27 (14-36) IU/L ALT 25 (<35) IU/L Alkaline Phosphatase 92 (38-126) U/L Troponin I < 0.012 (0.01-0.034) ng/mL NT-Pro-B Natriuret Pep 78 (<125) pg/mL Total Protein 8.0 (6.3-8.2) g/dL Albumin 4.1 (3.5-5.0) g/dL Globulin 3.9 (1.7-4.1) g/dL Albumin/Globulin Ratio 1.1 (1.0-2.8) Procalcitonin < 0.030 (<0.5) ng/mL TSH 1.07 (0.47-4.68) uIU/mL Chlamy pneumoniae PCR (Not Detect) Adenovirus (PCR) (Not Detect) B. pertussis DNA (PCR) (Not Detect) B.parapertussis DNA PCR (Not Detecte) Coronavirus OC43 (PCR) (Not Detect) Coronavirus HKU1 (PCR) (Not Detect) Coronavirus 229E (PCR) (Not Detect) SARS-CoV-2 (PCR) (Not Detecte) Coronavirus NL63 (PCR) (Not Detect) Monoscreen Negative (Negative) Human Metapneumovir PCR (Not Detect) Influenza Type A (PCR) (Not Detect) Influenza Type B (PCR) (Not Detect) M. pneumoniae (PCR) (Not Detect) Parainfluenza 1 (PCR) (Not Detect) Parainfluenza 2 (PCR) (Not Detect) Parainfluenza 3 (PCR) (Not Detect) Parainfluenza 4 (PCR) (Not Detect) RSV (PCR) (Not Detect) Entero/Rhino (PCR) (Not Detect) 04/13/25 04/13/25 04/13/25 Range/Units 16:56 17:14 18:14 WBC (4.5-11.0) X10^3/uL RBC (4.0-5.2) X10^6/uL Hgb (12.0-16.0) g/dL Hct (36-46) % MCV (80-100) fL MCH (26-34) PG MCHC (30-36) % RDW (11.6-14.8) % Plt Count (150-400) X10^3/uL Neut % (Auto) (50-75) % Lymph % (Auto) (25-40) % [place] % (Auto) (3-14) % Eos % (Auto) (2-4) % Baso % (Auto) (0-2) % Neut # (Auto) (8398-6452) /uL Lymph # (Auto) (7034-9790) /uL [place] # (Auto) (0-900) /uL Eos # (Auto) (0-450) /uL Baso # (Auto) (0-100) /uL PT (9.4-12.5) SECONDS INR (0.9-1.3) ABG Sample Site Right radial ABG pH 7.40 (7.35-7.45) ABG pCO2 34.6 L (35-45) mmHg ABG pO2 99 (80-100) mmHg ABG HCO3 21 L (23-27) mmol/L ABG Total CO2 20 L (23-27) mmol/L ABG O2 Saturation 98 (95-100) % ABG Base Excess -3.1 L (-2-3) mmol/L Clive Test Negative FiO2 % 21.0 % % Sodium (137-145) mmol/L Potassium (3.4-5.1) mmol/L Chloride (98-107) mmol/L Carbon Dioxide (22-32) mmol/L BUN (7-17) mg/dL Creatinine (0.52-1.04) mg/dL Estimated GFR (>60) mL/min BUN/Creatinine Ratio (6-22) Glucose (70-99) mg/dL Lactate 3.6 H (0.7-2.1) mmol/L Calcium (8.4-10.2) mg/dL Total Bilirubin (0.2-1.3) mg/dL AST (14-36) IU/L ALT (<35) IU/L Alkaline Phosphatase (38-126) U/L Troponin I < 0.012 (0.01-0.034) ng/mL NT-Pro-B Natriuret Pep (<125) pg/mL Total Protein (6.3-8.2) g/dL Albumin (3.5-5.0) g/dL Globulin (1.7-4.1) g/dL Albumin/Globulin Ratio (1.0-2.8) Procalcitonin (<0.5) ng/mL TSH (0.47-4.68) uIU/mL Chlamy pneumoniae PCR Not detected (Not Detect) Adenovirus (PCR) Not detected (Not Detect) B. pertussis DNA (PCR) Not detected (Not Detect) B.parapertussis DNA PCR Not detected (Not Detecte) Coronavirus OC43 (PCR) Not detected (Not Detect) Coronavirus HKU1 (PCR) Not detected (Not Detect) Coronavirus 229E (PCR) Not detected (Not Detect) SARS-CoV-2 (PCR) Not detected (Not Detecte) Coronavirus NL63 (PCR) Not detected (Not Detect) Monoscreen (Negative) Human Metapneumovir PCR Not detected (Not Detect) Influenza Type A (PCR) Not detected (Not Detect) Influenza Type B (PCR) Not detected (Not Detect) M. pneumoniae (PCR) Not detected (Not Detect) Parainfluenza 1 (PCR) Not detected (Not Detect) Parainfluenza 2 (PCR) Not detected (Not Detect) Parainfluenza 3 (PCR) Not detected (Not Detect) Parainfluenza 4 (PCR) Not detected (Not Detect) RSV (PCR) Not detected (Not Detect) Entero/Rhino (PCR) Not detected (Not Detect) Imaging Data CT angiogram chest: Radiologist's Impression: [address] [address] [address] Scan Report Signed Patient: Donnie Ojeda MR#: [id number] : 1985 Acct:[id number] Age/Sex: 39 / F Date of Service: 04/13/25 Loc: ED Accession Number: [id number] Procedure: CT angio chest PE protocol Ordering Provider: Kacy Salazar D.O. PROCEDURE: CT ANGIO CHEST PE PROTOCOL INDICATIONS: elevating lactate, chest pain TECHNIQUE: After the administration of intravenous contrast, 2 mm thick sections acquired from the pulmonary apices to the posterior costophrenic angles. 3-dimensional maximum intensity projection (MIP) coronal and sagittal reformats were then acquired through the thorax. For radiation dose reduction, the following was used: automated exposure control, adjustment of mA and/or kV according to patient size. COMPARISON: [facility], CR, XR CHEST 1V, 04/13/2025, 11:46. [facility], CT, CT ANGIO CHEST PE PROTOCOL, 04/09/2025, 17:19. FINDINGS: Image quality: Limited by bolus timing. Pulmonary arteries: The bolus of the contrast injection is suboptimal. The main pulmonary artery measures 180 Hounsfield units. Pulmonary artery densities are greater than 250 Hounsfield units are considered to be ideal for evaluation of pulmonary embolism. However, no large or central pulmonary emboli are seen on these images. No pulmonary emboli are seen more distally, although sensitivity for detection of such is limited on this study. Lower Neck: No enlarged lymph nodes. Thyroid: There is a 2.7 cm left thyroid nodule seen. Axillae: No enlarged lymph nodes. Chest Wall: Unremarkable. Bones: Unremarkable. Lungs and Pleura: No pneumothorax or pleural effusions. Presumed atelectasis can be seen involving the lingula and the right middle lobe. A mild degree of dependent atelectasis can be seen within the lower lobes as well. No suspicious pulmonary nodule is seen. Heart: Heart size is normal. No pericardial effusion. Thoracic Vessels: No aortic aneurysm. Mediastinum and Angela: No enlarged lymph nodes. However, several borderline prominent mediastinal lymph nodes can be seen. Esophagus: No wall thickening. No hiatal hernia. Upper Abdomen: Visualized upper abdomen solid organs and bowel loops appear normal. IMPRESSION: No large or central pulmonary embolism can be seen. Areas of presumed atelectasis can be seen within the lungs. 2.7 cm left thyroid nodule noted. When clinically appropriate, please consider a follow-up thyroid ultrasound for further evaluation. Dictated by: Jamil Meredith M.D. on 04/13/2025 at 16:29 Approved by: Jamil Meredith M.D. on 04/13/2025 at 16:33 MDM Narrative Medical decision making narrative: Labs show white count of 7.3 hemoglobin of 10.9 was 11.6 on 04/09/2025 microcytic, platelets are 289. INR is 1.0, chloride of 108 electrolytes are otherwise appropriate creatinine 0.81, lactate is 2.6 with a repeat of 3, calcium is 8.8 troponins less than 0.012 with a BNP of 78. Patient had chest x-ray today which shows no acute cardiopulmonary abnormality. EKG shows sinus rhythm rate 80 WV 166 QRS of 84, QTC of 401, no acute ST-elevation or depression noted. CTA PE protocol shows no large or central pulmonary embolism, areas of presumed atelectasis seen within the lungs involving lingula and right middle lobe mild degree dependent atelectasis seen with the lower lobes as well. No pericardial effusion. Several borderline prominent mediastinal lymph nodes seen. 2.7 cm left thyroid nodule noted when appropriate consider follow up thyroid ultrasound. Patient on 04/09/2025 had a CTA chest PE protocol which showed no pulmonary embolism, diffuse bronchial wall thickening particularly lung lungs consistent with a chronic bronchitis and mediastinal adenopathy with largest subcarinal lymph node measuring 1.8 x 1.3 cm. Patient has a right middle lobe focal atelectasis with scarring which appears chronic. And mild regional ground-glass density may reflect differential aeration. Patient received albuterol neb and dexamethasone 10 mg EN route. Patient had fluids, magnesium, albuterol 10 mg and ipratropium 0.5 mg here. On rechecked at 15 28 patient states her lungs feel improved. Lactate appears to have trended upwards from 2.6-3. We discussed staying for observation patient is reluctant to stay she is currently receiving fluids we will have her finish these and rechecked lactate. Repeat lactate is 5. On re-evaluation again patient's lungs are still clear. She states she does not feel any worse she feels like her breathing is easier. This time discussed I do not plan to discharge her with a like to obtain CT of her chest again, we will start IV antibiotics add on blood cultures and procalcitonin as well as respiratory panel and repeat troponin and ABG. 04/13/25, [id number]. Sign-out from Dr. Salazar. CTA chest ordered. 39-year-old female with history of asthma, recent respiratory illness symptoms, seen here 04/09/2025 with asthma exacerbation symptoms, D-dimer that visit prompted CTA angiogram showing no pulmonary embolus but some concerns for chronic bronchitic like changes, given Rocephin while in the emergency department, as well as oral doxycycline in the department and prescription for outpatient course, coverage for possible atypical pathogens, COVID/influenza swab at that time negative. Patient has increasing shortness of breath, more short of breath, was given Decadron and breathing treatment, no oxygen requirement, has generalized fatigue, negative chest x-ray, initial mildly increased lactate 2.6, repeat lactate increased 3.0, given IV fluids, repeat lactate further increased to 5.0. CTA chest ordered now today, results pending. We will give oral doxycycline dose for the evening dose today. Assumed care. Lab data: White blood cell count 7300, hemoglobin 10.9, platelets adequate. Glucose 128. Normal renal function, serum CO2, electrolytes. Liver functions normal. Troponin negative/unmeasurable. BNP negative/unmeasurable. Procalcitonin negative. Initial lactate 2.6, on repeat increased 3.0, then increased after IV fluids to 5.0. ABG shows pH 7.4, pCO2 34, PaO2 99. Respiratory panel negative. Interval repeat troponin also negative/unmeasurable. CTA chest report still pending. CTA chest today. IMPRESSION: No large or central pulmonary embolism can be seen. Areas of presumed atelectasis can be seen within the lungs. 2.7 cm left thyroid nodule noted. When clinically appropriate, please consider a follow-up thyroid ultrasound for further evaluation. See radiology report. Oral doxycycline dose given, which she had been taking as an outpatient. Patient with generalized fatigue, recent respiratory illness. Rising lactate, blood cultures requested from this visit. Consider admission. 2044, case discussed with hospitalist Dr. Donohue who accepts patient for admission to observation Critical Care Time <Saravanan Saldivar MD - Last Filed: 04/14/25 06:57> Critical Care Time Critical Care Time: Yes Total Critical Care Time: 35 Attestation: The high probability of a clinically significant, sudden or life threatening deterioration of the [cardiopulmonary, metabolic] system(s) required my full and direct attention, intervention and personal management. The aggregate critical care time was [35] minutes. This time is in addition to time spent performing reported procedures but includes the following: [x] Data Review and interpretation [x] Patient assessment and monitoring of vital signs [x] Documentation [x] Medication orders and management Discharge Plan Departure Patient Disposition: Admitted as Observation Clinical Impression: Asthma exacerbation, Acute lactic acidosis, Fatigue Admit Date/Time: 04/13/25 20:53 Admit Provider: Oliver Donohue
[2025-04-13] MEDS: SODIUM CHLORIDE 0.9% 1,000 ML 1000 ML IV ×2 (15:19→17:36)
[2025-04-13] MEDS: KETOROLAC 30 MG/ML VIAL 15 MG IV (16:20)
[2025-04-13 16:47] LABS: Lactate (Lactic Acid) 5.0 mmol/L (0.7-2.1)
--- NOTE | 2025-04-13 16:47 | DI.CT.S_ITS ---
PROCEDURE: CT ANGIO CHEST PE PROTOCOL INDICATIONS: elevating lactate, chest pain TECHNIQUE: After the administration of intravenous contrast, 2 mm thick sections acquired from the pulmonary apices to the posterior costophrenic angles. 3-dimensional maximum intensity projection (MIP) coronal and sagittal reformats were then acquired through the thorax. For radiation dose reduction, the following was used: automated exposure control, adjustment of mA and/or kV according to patient size. COMPARISON: [facility], CR, XR CHEST 1V, 04/13/2025, 11:46. [facility], CT, CT ANGIO CHEST PE PROTOCOL, 04/09/2025, 17:19. FINDINGS: Image quality: Limited by bolus timing. Pulmonary arteries: The bolus of the contrast injection is suboptimal. The main pulmonary artery measures 180 Hounsfield units. Pulmonary artery densities are greater than 250 Hounsfield units are considered to be ideal for evaluation of pulmonary embolism. However, no large or central pulmonary emboli are seen on these images. No pulmonary emboli are seen more distally, although sensitivity for detection of such is limited on this study. Lower Neck: No enlarged lymph nodes. Thyroid: There is a 2.7 cm left thyroid nodule seen. Axillae: No enlarged lymph nodes. Chest Wall: Unremarkable. Bones: Unremarkable. Lungs and Pleura: No pneumothorax or pleural effusions. Presumed atelectasis can be seen involving the lingula and the right middle lobe. A mild degree of dependent atelectasis can be seen within the lower lobes as well. No suspicious pulmonary nodule is seen. Heart: Heart size is normal. No pericardial effusion. Thoracic Vessels: No aortic aneurysm. Mediastinum and Angela: No enlarged lymph nodes. However, several borderline prominent mediastinal lymph nodes can be seen. Esophagus: No wall thickening. No hiatal hernia. Upper Abdomen: Visualized upper abdomen solid organs and bowel loops appear normal. IMPRESSION: No large or central pulmonary embolism can be seen. Areas of presumed atelectasis can be seen within the lungs. 2.7 cm left thyroid nodule noted. When clinically appropriate, please consider a follow-up thyroid ultrasound for further evaluation. Dictated by: Jamil Meredith M.D. on 04/13/2025 at 16:29 Approved by: Jamil Meredith M.D. on 04/13/2025 at 16:33
[2025-04-13 17:18] LABS: Procalcitonin < 0.030 ng/mL (<0.5)
[2025-04-13 17:21] LABS: Allen Test for ABG Passed? Negative; Blood Gas Collection Site Right Radial; HCO3 ABG 21 mmol/L (23-27); Oxygen Saturation ABG 98 % (95-100); PCO2 ABG 34.6 mmHg (35-45); PO2 ABG 99 mmHg (80-100); TCO2 ABG 20 mmol/L (23-27)
[2025-04-13] MEDS: PIPERACILLIN/TAZO 4.5 GM in SODIUM CHLORIDE 0.9% 100 ML IV (17:30)
[2025-04-13] MEDS: MORPHINE 4 MG/ML INJ IV (17:38)
[2025-04-13 18:06] LABS: Reflexed Lactate in 2 Hours Y
[2025-04-13] MEDS: DOXYCYCLINE HYCLATE 100 MG TABLET PO (18:19)
[2025-04-13 18:35] LABS: Lactate 2HR (Lactic Acid Rflx) 3.6 mmol/L (0.7-2.1)
[2025-04-13 18:47] LABS: Troponin I < 0.012 ng/mL (0.01-0.034)
[2025-04-13 18:56] LABS: Coronavirus NL 63 Not Detected (Not Detect); SARS- CoV-2 Not Detected (Not Detecte)
[2025-04-13] MEDS: SODIUM CHLORIDE 0.9% 1,000 ML 125 ML IV (21:59)
--- NOTE | 2025-04-13 23:05 | PM.HP.1 ---
History of Present Illness History of Present Illness Date Patient Seen: 04/13/25 Time Patient Seen: 23:05 Chief complaint: Pneumonia Narrative: The pt is a 39 yo who has been having myalgias, [place],LLQ abd pain (mild with activity) and cmae to the ER tonight for evaluation. She states these symtoms have been present for the past week. She came to the ER on 04/09 and was dx with asthma exacerbation and was given Doxycyline & prednisone (presently on 40mg daily). She states this did not help her symtoms. She works at a [employer] and has been exposed to the general public, she also has 2 toddlers at home but does not believe they are ill. No fevers or chills, no diarrhea, Donnie is also on methadone 290mg, this dose has not changed, [facility] Medical History Methadone dependence Asthma Social History household members: spouse, family and children Smoking Status: Never smoker alcohol intake: never Meds Home Medications and Allergies Home Medications ?Medication ?Instructions ?Recorded ?Confirmed ?Type acetaminophen 650 mg tablet 650 mg PO Q4H PRN Mild Pain (Scale 04/17/22 04/13/25 History Score 1-4) methadone 5 mg tablet 290 mg PO DAILY 04/17/22 04/13/25 History prednisone 20 mg tablet See Rx Instructions .Route 05/29/23 04/13/25 Rx .COMPLEX #12 tabs prednisone 10 mg tablets in a dose See Rx Instructions PO .COMPLEX 11/08/23 04/13/25 Rx pack #21 ea doxycycline hyclate 100 mg tablet 100 mg PO BID #20 tabs 04/09/25 04/13/25 Rx prednisone 20 mg tablet 40 mg (2 x 20 mg) PO DAILY 5 days 04/09/25 04/13/25 Rx #10 tabs albuterol sulfate 90 mcg/actuation 1 puff inhalation Q8H 04/13/25 04/13/25 History aerosol inhaler gabapentin 600 mg tablet 600 mg PO DAILY 04/13/25 04/13/25 History montelukast 10 mg tablet 10 mg PO DAILY 04/13/25 04/13/25 History Allergies Allergy/AdvReac Type Severity Reaction Status Date / Time No Known Drug Allergies Allergy Verified 04/13/25 11:24 Exam Vital Signs (past 8 hours): - 04/13/25 17:23 04/13/25 17:26 04/13/25 17:26 Temperature Pulse Rate 82 79 Respiratory Rate Blood Pressure 129/62 Pulse Oximetry 99 97 Oxygen Delivery Method Oxygen Flow Rate 04/13/25 17:30 04/13/25 17:30 04/13/25 18:00 Temperature Pulse Rate 79 74 Respiratory Rate 13 Blood Pressure 130/60 Pulse Oximetry 96 96 Oxygen Delivery Method Oxygen Flow Rate 04/13/25 18:00 04/13/25 18:30 04/13/25 18:30 Temperature Pulse Rate 71 Respiratory Rate 12 Blood Pressure 131/65 139/68 Pulse Oximetry 96 Oxygen Delivery Method Oxygen Flow Rate 04/13/25 19:03 04/13/25 19:04 04/13/25 19:04 Temperature Pulse Rate 73 69 Respiratory Rate 15 14 Blood Pressure 130/65 Pulse Oximetry 98 98 Oxygen Delivery Method Room Air Oxygen Flow Rate 04/13/25 19:30 04/13/25 19:30 04/13/25 20:00 Temperature Pulse Rate 68 Respiratory Rate 14 Blood Pressure 127/64 134/66 Pulse Oximetry 96 Oxygen Delivery Method Oxygen Flow Rate 04/13/25 20:00 04/13/25 20:30 04/13/25 20:30 Temperature Pulse Rate 65 65 Respiratory Rate 11 L 14 Blood Pressure 129/64 Pulse Oximetry 97 97 Oxygen Delivery Method Oxygen Flow Rate 04/13/25 21:00 04/13/25 21:00 04/13/25 21:30 Temperature Pulse Rate 63 Respiratory Rate 16 Blood Pressure 148/75 H 138/81 Pulse Oximetry 97 Oxygen Delivery Method Oxygen Flow Rate 04/13/25 21:30 04/13/25 21:42 04/13/25 21:59 Temperature 97.2 F L Pulse Rate 83 69 Respiratory Rate 23 16 Blood Pressure 141/83 H Pulse Oximetry 98 98 Oxygen Delivery Method Room Air Oxygen Flow Rate 0 Oxygen Delivery Method Room Air Oxygen Flow Rate 0 Const General: cooperative, healthy appearing and comfortable Other: Due to technical difficulties, I was unale to examine the pt but was able to visualize and talk with the pt. Objective Labs 04/13/25 11:32 04/13/25 11:32 Labs: Laboratory Results - last 24 hr 04/13/25 04/13/25 04/13/25 11:32 13:41 16:28 WBC 7.3 RBC 4.28 Hgb 10.9 L Hct 33.4 L MCV 78.2 L MCH 25.5 L MCHC 32.6 RDW 17.3 H Plt Count 289 Neut % (Auto) 69.4 Lymph % (Auto) 27.3 [place] % (Auto) 2.6 L Eos % (Auto) 0.1 L Baso % (Auto) 0.6 Neut # (Auto) 5100 Lymph # (Auto) 2000 [place] # (Auto) 200 Eos # (Auto) 0 Baso # (Auto) 0 PT 11.1 INR 1.0 ABG Sample Site ABG pH ABG pCO2 ABG pO2 ABG HCO3 ABG Total CO2 ABG O2 Saturation ABG Base Excess Clive Test FiO2 % Sodium 141 Potassium 3.6 Chloride 108 H Carbon Dioxide 23 BUN 16 Creatinine 0.81 Estimated GFR > 60 BUN/Creatinine Ratio 19.8 Glucose 128 H Lactate 2.6 H 3.0 H 5.0 H* Calcium 8.8 Total Bilirubin 0.2 AST 27 ALT 25 Alkaline Phosphatase 92 Troponin I < 0.012 NT-Pro-B Natriuret Pep 78 Total Protein 8.0 Albumin 4.1 Globulin 3.9 Albumin/Globulin Ratio 1.1 Procalcitonin < 0.030 Chlamy pneumoniae PCR Adenovirus (PCR) B. pertussis DNA (PCR) B.parapertussis DNA PCR Coronavirus OC43 (PCR) Coronavirus HKU1 (PCR) Coronavirus 229E (PCR) SARS-CoV-2 (PCR) Coronavirus NL63 (PCR) Human Metapneumovir PCR Influenza Type A (PCR) Influenza Type B (PCR) M. pneumoniae (PCR) Parainfluenza 1 (PCR) Parainfluenza 2 (PCR) Parainfluenza 3 (PCR) Parainfluenza 4 (PCR) RSV (PCR) Entero/Rhino (PCR) 04/13/25 04/13/25 04/13/25 16:56 17:14 18:14 WBC RBC Hgb Hct MCV MCH MCHC RDW Plt Count Neut % (Auto) Lymph % (Auto) [place] % (Auto) Eos % (Auto) Baso % (Auto) Neut # (Auto) Lymph # (Auto) [place] # (Auto) Eos # (Auto) Baso # (Auto) PT INR ABG Sample Site Right radial ABG pH 7.40 ABG pCO2 34.6 L ABG pO2 99 ABG HCO3 21 L ABG Total CO2 20 L ABG O2 Saturation 98 ABG Base Excess -3.1 L Clive Test Negative FiO2 % 21.0 % Sodium Potassium Chloride Carbon Dioxide BUN Creatinine Estimated GFR BUN/Creatinine Ratio Glucose Lactate 3.6 H Calcium Total Bilirubin AST ALT Alkaline Phosphatase Troponin I < 0.012 NT-Pro-B Natriuret Pep Total Protein Albumin Globulin Albumin/Globulin Ratio Procalcitonin Chlamy pneumoniae PCR Not detected Adenovirus (PCR) Not detected B. pertussis DNA (PCR) Not detected B.parapertussis DNA PCR Not detected Coronavirus OC43 (PCR) Not detected Coronavirus HKU1 (PCR) Not detected Coronavirus 229E (PCR) Not detected SARS-CoV-2 (PCR) Not detected Coronavirus NL63 (PCR) Not detected Human Metapneumovir PCR Not detected Influenza Type A (PCR) Not detected Influenza Type B (PCR) Not detected M. pneumoniae (PCR) Not detected Parainfluenza 1 (PCR) Not detected Parainfluenza 2 (PCR) Not detected Parainfluenza 3 (PCR) Not detected Parainfluenza 4 (PCR) Not detected RSV (PCR) Not detected Entero/Rhino (PCR) Not detected Assessment & Plan Assessment & Plan narrative: I have discussed the pt's presenting symptoms, labs and imaging with the ER provider and agree with the decision for admission. I have personally reviewed the pt's labs showing the LA of 5.0 and the trend upward, CBC is normal except for hgb of 10 with low MCV, viral panel is negative. Will check TSH, [place] abx, urine & blood cultures pending, starting on IVF, bolus given in the ER, hold off on abx at this time, repeat LA in am, I, Dr. Oliver Donohue in [place] has seen and examined Donnie Ojeda in [place] with audio/ video of telemedicine with the pt's consent and nursing assistance. Time-Based Coding :: [TOTAL MINUTES] spent with patient and on the chart (including review of chart, obtaining history, exam, reviewing outside data, placing orders, documenting exam and treatment plan, and counseling patient) on [DATE]. Quality VTE Deep Vein Thrombosis/Pulmonary Embolism Present on Admission: No
[2025-04-14 00:20] LABS: TSH w/ Reflex to FT4 1.07 uIU/mL (0.47-4.68)
[2025-04-14 05:27] LABS: Alanine Aminotransferase 21 IU/L (<35); Albumin 3.5 g/dL (3.5-5.0); Albumin Globulin Ratio 1.0 (1.0-2.8); Alkaline Phosphatase 82 U/L (38-126); Blood Urea Nitrogen 11 mg/dL (7-17); Calcium 7.4 mg/dL (8.4-10.2); Carbon Dioxide 22 mmol/L (22-32); Chloride 109 mmol/L (98-107); Estimated Glomerular Filt Rate > 60 mL/min (>60); Globulin 3.4 g/dL (1.7-4.1); Glucose 91 mg/dL (70-99); HEMOLYSIS < 15 (0-50); Potassium 3.6 mmol/L (3.4-5.1); Sodium 140 mmol/L (137-145); Total Protein 6.9 g/dL (6.3-8.2)
[2025-04-14 05:34] LABS: Add Manual Diff / Slide Review NO; Hematocrit 29.8 % (36-46); Hemoglobin 9.8 g/dL (12.0-16.0); Lymphocytes Absolute Auto 2100 /uL (1100-4500); Mean Corpuscular HGB Conc 33.0 % (30-36); Mean Corpuscular Hemoglobin 25.6 PG (26-34); Mean Corpuscular Volume 77.5 fL (80-100); Platelet Count 258 X10^3/uL (150-400)
[2025-04-14] MEDS: SODIUM CHLORIDE 0.9% 1,000 ML 125 ML IV (05:47)
[2025-04-14 07:30] VITALS: BP 134/78; PULSE 60; RESP 17; O2SAT 98
[2025-04-14] MEDS: GABAPENTIN 600 MG TABLET PO (09:47)
[2025-04-14] MEDS: DOXYCYCLINE HYCLATE 100 MG TABLET PO (09:47)
[2025-04-14] MEDS: MONTELUKAST 10 MG TABLET PO (09:47)
[2025-04-14] MEDS: METHADONE INTENSOL 10 MG/ML ORAL.CONC 290 MG PO (09:47)
[2025-04-14 09:52] VITALS: O2SAT 97
[2025-04-14] MEDS: ACETAMINOPHEN 325 MG TABLET 650 MG PO (09:58)
--- NOTE | 2025-04-14 10:03 | PC.NURSE ---
Pt sitting up in bed, AOx4, on RA. Pt denied any SOB when she ambulated to the bathroom this morning. She said her chest felt tight this morning when she woke up but then the sensation went away. Currently denying chest pain, chest tightness, and difficulty breathing. Pt's brought in pt's home dose of liquid methadone, which was sent down to pharmacy. put one time order in, and the remaining medication was returned to pt's .
[2025-04-14 10:30] VITALS: PULSE 78; RESP 20; O2SAT 98
[2025-04-14] MEDS: ALBUTEROL/IPRATROPIUM 3 ML AMPUL INH (10:30)
--- NOTE | 2025-04-14 11:23 | CM.DANOTE ---
Initial DCP Assessment Note. Review EMR and PT Interview. Met with patient at bedside to discuss discharge needs.PT is alert x 4 sitting up in chair. No acute distress. Independent. Lives with spouse.. Payor:??Medicaid PCP: [facility] Summary & Plan: 39 y/o female arrived to ED vis EMS c/o ?SOB and Cough. Admitted OBS. Dx. PNA. Plan: IV abx, IVF, dc home when improved. Discharge Planning/Care Management CM Discharge Assessment Start: 04/13/25 21:59 Freq: Status: Active Protocol: Document 04/14/25 11:19 (Rec: 04/14/25 11:22 [id number]) Discharge Planning Assessment Assigned Discharge Bertha Carballo RN CM [employer] Provider [facility] Insurance Medicaid Advance Directives? No History Provided By Patient Has Patient been No admitted in last 30 days? Prior Living House Arrangements Household Members spouse,family,children Type of Drives own vehicle transporation used prior to admit Independent with ADL Yes 's Is patient alert and Yes oriented? Discharge Plan Home Transportation Spouse POV Arrangement Referrals Initiated None needed Review Status In Process Please Provide Date 04/14/25 Initial DC Assessment Was Performed Next Review Type Continued Stay Review
--- NOTE | 2025-04-14 11:25 | PM.DS.1 ---
History of Present Illness History of Present Illness Chief complaint: Pneumonia Narrative: From H&P: The pt is a 39 yo who has been having myalgias, [place],LLQ abd pain (mild with activity) and cmae to the ER tonight for evaluation. She states these symtoms have been present for the past week. She came to the ER on 04/09 and was dx with asthma exacerbation and was given Doxycyline & prednisone (presently on 40mg daily). She states this did not help her symtoms. She works at a [employer] store and has been exposed to the general public, she also has 2 toddlers at home but does not believe they are ill. No fevers or chills, no diarrhea, Donnie is also on methadone 290mg, this dose has not changed, Discharge Providers Provider Date of admission: 04/13/25 20:53 Discharge Date: 04/14/25 Primary care physician: [facility]. Consults: None Discharge provider: Clive Burnett MD Summary Hospital Course Discharge Diagnosis: 1. Acute asthma exacerbation possibly secondary to URI, improved. 2. Continuous opiate dependence on high dose of methadone, chronic and stable. Hospital Course: She was admitted and treated with corticosteroids and bronchodilators for shortness a breath, wheezing acute asthma exacerbation. She improved rapidly on dose in the morning of April 14. She felt that she was improved and close to baseline and was comfortable with discharge home with close follow up. Status at Discharge Cognitive/behavioral status at discharge: oriented Functional status at discharge: independent ambulation Overall status at discharge: patient is back to baseline Time Spent with Patient Time spent: Greater than 30 minutes Exam Vital Signs (past 8 hours): - 04/14/25 07:30 04/14/25 09:52 04/14/25 09:52 Pulse Rate 60 Respiratory Rate 17 Blood Pressure 134/78 Pulse Oximetry 98 97 Oxygen Delivery Method Room Air Room Air Oxygen Flow Rate 0 04/14/25 10:30 Pulse Rate 78 Respiratory Rate 20 Blood Pressure Pulse Oximetry 98 Oxygen Delivery Method Room Air Oxygen Flow Rate Oxygen Delivery Method Room Air Oxygen Flow Rate 0 Narrative Exam Narrative: NAD, alert and oriented. Fluent speech. Lungs are clear, normal rate and effort. No wheezing. Heart is regular, no murmur gallop or rub. Abdomen is soft, non distended. Extremities are free of edema. Objective ECG Impression: Intervals Mcleod Rate: 69 P: 1 OH: 178 QRS: 5 QRSD: 80 T: 12 QT: 448 QTc: 480 Interpretive Statements Sinus rhythm with Imaging Chest x-ray: My impression: Clear. Radiologist's impression: No acute cardiopulmonary abnormality is seen. CT scan - chest: Radiologist's impression: No large or central pulmonary embolism can be seen. Areas of presumed atelectasis can be seen within the lungs. 2.7 cm left thyroid nodule noted. When clinically appropriate, please consider a follow-up thyroid ultrasound for further evaluation. Labs 04/14/25 05:00 04/14/25 05:00 Labs: Laboratory Results - last 24 hr 04/13/25 04/13/25 04/13/25 11:32 13:41 16:28 WBC 7.3 RBC 4.28 Hgb 10.9 L Hct 33.4 L MCV 78.2 L MCH 25.5 L MCHC 32.6 RDW 17.3 H Plt Count 289 Neut % (Auto) 69.4 Lymph % (Auto) 27.3 [place] % (Auto) 2.6 L Eos % (Auto) 0.1 L Baso % (Auto) 0.6 Neut # (Auto) 5100 Lymph # (Auto) 2000 [place] # (Auto) 200 Eos # (Auto) 0 Baso # (Auto) 0 PT 11.1 INR 1.0 ABG Sample Site ABG pH ABG pCO2 ABG pO2 ABG HCO3 ABG Total CO2 ABG O2 Saturation ABG Base Excess Clive Test FiO2 % Sodium 141 Potassium 3.6 Chloride 108 H Carbon Dioxide 23 BUN 16 Creatinine 0.81 Estimated GFR > 60 BUN/Creatinine Ratio 19.8 Glucose 128 H Lactate 2.6 H 3.0 H 5.0 H* Calcium 8.8 Total Bilirubin 0.2 AST 27 ALT 25 Alkaline Phosphatase 92 Troponin I < 0.012 NT-Pro-B Natriuret Pep 78 Total Protein 8.0 Albumin 4.1 Globulin 3.9 Albumin/Globulin Ratio 1.1 Procalcitonin < 0.030 TSH 1.07 Chlamy pneumoniae PCR Adenovirus (PCR) B. pertussis DNA (PCR) B.parapertussis DNA PCR Coronavirus OC43 (PCR) Coronavirus HKU1 (PCR) Coronavirus 229E (PCR) SARS-CoV-2 (PCR) Coronavirus NL63 (PCR) Monoscreen Negative Human Metapneumovir PCR Influenza Type A (PCR) Influenza Type B (PCR) M. pneumoniae (PCR) Parainfluenza 1 (PCR) Parainfluenza 2 (PCR) Parainfluenza 3 (PCR) Parainfluenza 4 (PCR) RSV (PCR) Entero/Rhino (PCR) 04/13/25 04/13/25 04/13/25 16:56 17:14 18:14 WBC RBC Hgb Hct MCV MCH MCHC RDW Plt Count Neut % (Auto) Lymph % (Auto) [place] % (Auto) Eos % (Auto) Baso % (Auto) Neut # (Auto) Lymph # (Auto) [place] # (Auto) Eos # (Auto) Baso # (Auto) PT INR ABG Sample Site Right radial ABG pH 7.40 ABG pCO2 34.6 L ABG pO2 99 ABG HCO3 21 L ABG Total CO2 20 L ABG O2 Saturation 98 ABG Base Excess -3.1 L Clive Test Negative FiO2 % 21.0 % Sodium Potassium Chloride Carbon Dioxide BUN Creatinine Estimated GFR BUN/Creatinine Ratio Glucose Lactate 3.6 H Calcium Total Bilirubin AST ALT Alkaline Phosphatase Troponin I < 0.012 NT-Pro-B Natriuret Pep Total Protein Albumin Globulin Albumin/Globulin Ratio Procalcitonin TSH Chlamy pneumoniae PCR Not detected Adenovirus (PCR) Not detected B. pertussis DNA (PCR) Not detected B.parapertussis DNA PCR Not detected Coronavirus OC43 (PCR) Not detected Coronavirus HKU1 (PCR) Not detected Coronavirus 229E (PCR) Not detected SARS-CoV-2 (PCR) Not detected Coronavirus NL63 (PCR) Not detected Monoscreen Human Metapneumovir PCR Not detected Influenza Type A (PCR) Not detected Influenza Type B (PCR) Not detected M. pneumoniae (PCR) Not detected Parainfluenza 1 (PCR) Not detected Parainfluenza 2 (PCR) Not detected Parainfluenza 3 (PCR) Not detected Parainfluenza 4 (PCR) Not detected RSV (PCR) Not detected Entero/Rhino (PCR) Not detected 04/14/25 05:00 WBC 10.3 RBC 3.84 L Hgb 9.8 L Hct 29.8 L MCV 77.5 L MCH 25.6 L MCHC 33.0 RDW 17.2 H Plt Count 258 Neut % (Auto) 74.8 Lymph % (Auto) 20.1 L [place] % (Auto) 4.8 Eos % (Auto) 0.0 L Baso % (Auto) 0.3 Neut # (Auto) 7700 H Lymph # (Auto) 2100 [place] # (Auto) 500 Eos # (Auto) 0 Baso # (Auto) 0 PT INR ABG Sample Site ABG pH ABG pCO2 ABG pO2 ABG HCO3 ABG Total CO2 ABG O2 Saturation ABG Base Excess Clive Test FiO2 % Sodium 140 Potassium 3.6 Chloride 109 H Carbon Dioxide 22 BUN 11 Creatinine 0.60 Estimated GFR > 60 BUN/Creatinine Ratio 18.3 Glucose 91 Lactate Calcium 7.4 L Total Bilirubin < 0.1 L AST 19 ALT 21 Alkaline Phosphatase 82 Troponin I NT-Pro-B Natriuret Pep Total Protein 6.9 Albumin 3.5 Globulin 3.4 Albumin/Globulin Ratio 1.0 Procalcitonin TSH Chlamy pneumoniae PCR Adenovirus (PCR) B. pertussis DNA (PCR) B.parapertussis DNA PCR Coronavirus OC43 (PCR) Coronavirus HKU1 (PCR) Coronavirus 229E (PCR) SARS-CoV-2 (PCR) Coronavirus NL63 (PCR) Monoscreen Human Metapneumovir PCR Influenza Type A (PCR) Influenza Type B (PCR) M. pneumoniae (PCR) Parainfluenza 1 (PCR) Parainfluenza 2 (PCR) Parainfluenza 3 (PCR) Parainfluenza 4 (PCR) RSV (PCR) Entero/Rhino (PCR) [facility] Medical History Methadone dependence Asthma Social History household members: spouse, family and children Smoking Status: Never smoker alcohol intake: never Discharge Assessment & Plan Assessment and Plan Assessment: !. Asthma exacerbation, resolved. Plan of Treatment: Discharge on prednisone 50 daily for 5 days, follow up with PCP early next week to re-evaluate. Discharge Plan Discharge Plan Patient Disposition: Home Provider Discharge Comment: She is stable for discharge home. Discharge orders & Medications Prescriptions: New prednisone 50 mg tablet 50 mg PO DAILY Qty: 5 0RF Continued doxycycline hyclate 100 mg tablet 100 mg PO BID Qty: 20 0RF acetaminophen 650 mg Tablet 650 mg PO Q4H PRN (Reason: Mild Pain (Scale Score 1-4)) methadone 5 mg Tablet 290 mg PO DAILY Patient Comments: Edited dose per pt. & spouse. Dispense form liquid, per pt. & spouse, from clinic daily. RN unable to edit Strength & Dispense Form above. gabapentin 600 mg tablet 600 mg PO DAILY montelukast 10 mg tablet 10 mg PO DAILY albuterol sulfate 90 mcg/actuation HFA aerosol inhaler 1 puff inhalation Q8H Patient Comments: Takes 3-4 times a day one puff. Discontinued prednisone 10 mg tablets,dose pack See Rx Instructions .ROUTE .COMPLEX Qty: 21 0RF Rx Instructions: 6 tabs p.o. x1 day, then 5 tabs p.o. x1 day, then 4 tablets p.o. x1 day, then 3 tabs p.o. x1 day, then 2 tabs p.o. x1 day, then 1 tab p.o. x1 day prednisone 20 mg tablet 40 mg PO DAILY 5 Days Qty: 10 0RF prednisone 20 mg tablet See Rx Instructions .ROUTE .COMPLEX Qty: 12 0RF Rx Instructions: 60 mg (3 pills) daily for 2 days, then 40 mg (2 pills) daily for 2 days, then 20mg (1 pill) daily for 2 days then stop Visit Report/Discharge Packet Instructions: DI for Asthma -- Adult Stand Alone Forms: Patient Portal/API, Stroke Signs & Symptoms Discharge Data Attending Provider: Oliver Donohue Admit Date/Time: 04/13/25 20:53 Quality VTE Deep Vein Thrombosis/Pulmonary Embolism Present on Admission: No
--- NOTE | 2025-04-14 11:46 | PC.NURSE ---
D/c instructions reviewed with pt at bedside. Discussed new Rx which was sent to pharmacy. IVs removed. Pt exited via w/c with PCT to private vehicle.
== END 2025-04-14 11:47 | disposition home or self-care (01) ==
LOC: ED 20:53 → AC 20:53
PROVIDERS: Emergency Medicine; Admitting Provider Internal Medicine; Emergency Provider Emergency Medicine; Visit Provider Internal Medicine
DX: J45.901 Unspecified asthma with (acute) exacerbation (principal); R10.32 Left lower quadrant pain; R51.9 Headache, unspecified; M79.10 Myalgia, unspecified site; Z79.51 Long term (current) use of inhaled steroids; F11.20 Opioid dependence, uncomplicated; F17.210 Nicotine dependence, cigarettes, uncomplicated
CPT/HCPCS: 36415; 36600; 71045; 71275; 80053; 82805; 83605; 83880; 84145; 84443; 84484; 85025; 85610; 86318; 87040; 87633; 87798; 93005; 94150; 94640; 96365; 96366; 96367; 96375; 99284; 99291; G0378; A9270; J1885; J2272; J2543; J3475; J7030; J7050; J7613; Q9967